=== PATIENT | male | born 1975 | race Caucasian/White ===

== ENCOUNTER 2019-11-18 20:43 | Emergency (ER) | payer SELFPAY ==
[2019-11-18] VITALS (9 sets, daily range): BP systolic 119–187; BP diastolic 57–95; PULSE 64–89; RESP 18–25; TEMP 36.5; O2SAT 98–100; BMI 29.7
--- NOTE | 2019-11-18 00:10 | DI.CT.S_ITS ---
PROCEDURE: CT ANGIO CHEST PE PROTOCOL INDICATIONS: severe chest pain TECHNIQUE: After the administration of intravenous contrast, 2 mm thick sections acquired from the pulmonary apices to the posterior costophrenic angles. 3-dimensional maximum intensity projection (MIP) coronal and sagittal reformats were then acquired through the thorax. For radiation dose reduction, the following was used: automated exposure control, adjustment of mA and/or kV according to patient size. COMPARISON: [facility], , XR CHEST 1V, 11/18/2019, 21:14. FINDINGS: Image quality: Excellent. Pulmonary arteries: The bolus of the contrast injection is suboptimal. The main pulmonary artery measures approximately 90 Hounsfield units. Pulmonary artery densities are greater than 250 Hounsfield units are considered to be ideal for evaluation of pulmonary embolism. However, no large or central pulmonary emboli are seen on these images. No pulmonary emboli are seen more distally, although sensitivity for detection of such is limited on this study. Lungs and pleura: There is mild dependent atelectasis. No pleural effusions or pneumothorax. Central and peripheral airways are patent. Mediastinum: Heart size is normal, without pericardial effusion. No mediastinal or hilar adenopathy. Thoracic aorta is normal in caliber and enhancement. No findings of dissection can be seen. Esophagus is normal in caliber, without hiatal hernia. Distal esophageal wall thickening is seen. Bones and chest wall: No suspicious bony lesions. Ribs and thoracic spine appear intact throughout. Thyroid gland demonstrates no significant CT abnormality. No axillary or supraclavicular adenopathy. Abdomen: Diffuse fatty liver infiltration is noted. The visualized portions of the upper abdominal structures are otherwise unremarkable for imaging technique. IMPRESSION: No large or central pulmonary embolism can be seen. Evaluation of the smaller pulmonary arteries is limited by bolus timing. Negative for dissection or aneurysm. Distal esophageal wall thickening is seen. Differential diagnosis includes esophagitis. Incidental note is made of: Fatty liver infiltration Note: No significant discrepancy from the preliminary report. Dictated by: Suleman Harris M.D. on 11/19/2019 at 8:52 Approved by: Suleman Harris M.D. on 11/19/2019 at 8:55
--- NOTE | 2019-11-18 20:53 | DI.RAD.S_ITS ---
PROCEDURE: XR CHEST 1V INDICATIONS: chest pain TECHNIQUE: One view of the chest was acquired. COMPARISON: None. FINDINGS: Surgical changes and devices: None. Lungs and pleura: Submaximal inspiration. Question right infrahilar infiltrate versus atelectasis. No pleural effusions or pneumothorax. Mediastinum: Mediastinal contours appear normal. Heart size is normal. Bones and chest wall: No suspicious bony lesions. Overlying soft tissues appear unremarkable. IMPRESSION: Submaximal inspiration. Questionable right infrahilar infiltrate versus atelectasis. Dictated by: Mark Hensley M.D. on 11/18/2019 at 21:27 Approved by: Mark Hensley M.D. on 11/18/2019 at 21:28
--- NOTE | 2019-11-18 20:58 | ED_ITS ---
HPI - Chest Pain General Chief Complaint: Chest Pain Stated Complaint: Chest Pain Time Seen by Provider: 11/18/19 20:45 Source: patient Mode of arrival: Ambulatory Limitations: no limitations History of Present Illness HPI narrative: 44-year-old male daily smoker with coronary artery disease and known LAD lesion presents with a chief complaint of sudden onset left-sided chest pain with radiation to his left shoulder and jaw about 1 hour ago. He does take a baby aspirin daily but has no access to nitro. He states exertion makes his pain worse he admits to nausea, diaphoresis and some shortness of breath. He denies any recent injury or travel. His last stress test was 2 years ago followed by heart catheterization. He is followed by cardiology in [place] at [facility]. complaint: chest pain Onset (ago): hour(s) Duration: constant Onset: during rest Pain location: left chest Severity: severe Quality: tightness and aching Pain radiation: LUE, neck and jaw/teeth Relieving factors: nothing Exacerbating factors: exertion Associated symptoms: nausea, diaphoresis and dyspnea Related Data Allergies Allergy/AdvReac Type Severity Reaction Status Date / Time gabapentin Allergy ITCHING Verified 11/18/19 21:04 prochlorperazine Allergy Anaphylaxis Verified 11/18/19 21:04 [From Compazine] metoclopramide [From Reglan] AdvReac Vomiting Verified 11/18/19 21:04 Review of Systems Constitutional Constitutional: Denies chills, Denies fatigue, Denies fever(s), Denies frequent falls, Denies lethargy and Denies weakness Eyes Eyes: Denies change in vision, Denies eye discharge, Denies irritation and Denies loss of vision ENT Ears, Nose, Mouth, and Throat: Denies change in voice, Denies dizziness, Denies neck pain, Denies sore throat and Denies throat swelling Cardiovascular Cardiovascular: Reports chest pain, Reports chest pain at rest, Reports chest pain with activity, Reports diaphoresis, Denies irregular heart rhythm, Denies lightheadedness, Denies palpitations, Reports dyspnea, Denies dyspnea on exertion and Denies orthopnea Respiratory Respiratory: Denies cough, Reports dyspnea, Denies dyspnea on exertion and Denies wheezing Gastrointestinal Gastrointestinal: Denies abdominal pain, Denies change in bowel habits, Denies diarrhea, Reports nausea and Denies vomiting Genitourinary Genitourinary: Denies hematuria, Denies flank pain, Denies urinary incontinence and Denies urinary urgency Musculoskeletal Musculoskeletal: Denies back pain, Denies muscle weakness, Denies neck pain, Denies numbness and Denies tingling Integumentary/Breasts Skin/Breast: Denies pruritus, Denies erythema, Denies rash and Denies wounds Neurologic Neurologic: Denies behavioral changes, Denies confusion, Denies dizziness, Denies frequent falls, Denies loss of vision, Denies numbness, Denies tingling and Denies weakness Psychiatric Psychiatric: Denies anxiety, Denies behavioral changes, Denies confusion, Denies depression, Denies homicidal ideation and Denies suicidal ideation Endocrine Endocrine: Denies fatigue, Denies flushing and Denies palpitations Hematologic/Lymphatic Hematologic/Lymphatic: Denies easy bruising Allergic/Immunologic Allergic/Immunologic: Denies urticaria, Denies throat swelling and Denies whe ezing Patient History Social History Smoking Status: Current every day smoker Smoking Status: Current every day smoker alcohol intake frequency: 0-2 drinks per day Substance Use Type: does not use Exam Narrative Exam Narrative: GENERAL: [44] year old patient appears stated age. Well-nourish ed, well-developed patient, in mild distress. HEAD: Atraumatic. Normocephalic. EYES: Pupils equal round and reactive. Extraocular motions intact. No scleral icterus. No injection or drainage. ENT: Nose without bleeding, purulent drainage. Throat without erythema, tonsillar hypertrophy or exudate. Airway patent. NECK: Trachea midline. Non tender CARDIOVASCULAR: Regular rate and rhythm without murmurs, gallops, or rubs. RESPIRATORY: Clear to auscultation. Breath sounds equal bilaterally. No wheezes, rales, or rhonchi. GASTROINTESTINAL: Abdomen soft, non-tender, nondistended. EXTREMITIES: No edema or joint tenderness. BACK: Nontender without deformity or crepitance. No flank tenderness. NEURO: AOx3. SKIN: No rash or erythema of visible areas Initial Vital Signs Initial Vital Signs: Vital Signs Temperature 97.7 F 11/18/19 20:49 Pulse Rate 89 11/18/19 20:49 Respiratory Rate 22 11/18/19 20:49 Blood Pressure 187/95 H 11/18/19 20:49 Pulse Oximetry 100 11/18/19 20:49 Course Orders Ordered: ED Orders 11/18/19 20:53 XR chest 1V Stat EKG-12 Lead Stat 11/18/19 20:55 Complete Blood Count AUTO DIFF Stat Comprehensive Metabolic Panel Stat D Dimer Stat Lipase Stat Partial Thromboplastin Time Stat Prothrombin Time INR Stat Troponin & CK Cardiac Panel Stat 11/18/19 22:13 EKG-12 Lead Stat 11/18/19 22:45 Troponin I Stat 11/18/19 23:10 EKG-12 Lead Stat 11/19/19 01:51 Partial Thromboplastin Time Stat 11/19/19 02:00 PTT [Partial Thromboplastin Time] Q6H 11/19/19 02:10 Troponin I Stat 11/19/19 05:00 Hemoglobin and Hematocrit DAILY 11/19/19 08:00 PTT [Partial Thromboplastin Time] Q6H 11/19/19 14:00 PTT [Partial Thromboplastin Time] Q6H 11/19/19 20:00 PTT [Partial Thromboplastin Time] Q6H 11/20/19 05:00 Hemoglobin and Hematocrit DAILY Heparin Sodium/Dextrose (Heparin Drip) 25,000 unit in 500 mls @ 25.256 mls/hr IV CONT SJ; Protocol Last Admin: 11/19/19 02:08 Dose: 12 units/kg/hr, 25.256 mls/hr Documented by: GERALDO Nitroglycerin (Nitroglycerin) 50 mg in 250 mls @ 1.5 mls/hr IV TITRATE SJ; Protocol Last Titration: 11/19/19 03:20 Dose: 15 mcg/min, 4.5 mls/hr Documented by: Titration: 11/19/19 02:40 Dose: 10 mcg/min, 3 mls/hr Documented by: Admin: 11/19/19 02:25 Dose: 5 mcg/min, 1.5 mls/hr Documented by: GERALDO Discontinued Medications Acetaminophen (Tylenol) 975 mg PO NOW ONE Stop: 11/19/19 03:45 Last Admin: 11/19/19 03:53 Dose: 975 mg Documented by: BRIAN Aspirin (Aspirin Chew) 324 mg PO NOW ONE Stop: 11/18/19 20:58 Last Admin: 11/18/19 21:12 Dose: 324 mg Documented by: GERALDO Heparin Sodium (Porcine) (Heparin) 5,000 unit IV NOW ONE Stop: 11/19/19 01:51 Last Admin: 11/19/19 02:09 Dose: 5,000 unit Documented by: GERALDO Metoprolol Tartrate (Lopressor) 5 mg IV NOW ONE Stop: 11/18/19 23:08 Last Admin: 11/18/19 23:12 Dose: 5 mg Documented by: RAMYA Morphine Sulfate (Morphine) 4 mg IV NOW ONE Stop: 11/18/19 21:30 Last Admin: 11/18/19 21:39 Dose: 4 mg Documented by: GERALDO Morphine Sulfate (Morphine) 4 mg IV NOW ONE Stop: 11/18/19 23:51 Last Admin: 11/19/19 00:08 Dose: 4 mg Documented by: RAMYA Morphine Sulfate (Morphine) 4 mg IV NOW ONE Stop: 11/19/19 01:51 Last Admin: 11/19/19 02:09 Dose: 4 mg Documented by: GERALDO Nitroglycerin (Nitrostat) 0.4 mg SL [id number] PRN PRN Reason: Chest Pain Last Admin: 11/18/19 21:26 Dose: 0.4 mg Documented by: Admin: 11/18/19 21:21 Dose: 0.4 mg Documented by: Admin: 11/18/19 21:13 Dose: 0.4 mg Documented by: GERALDO Nitroglycerin (Nitrostat) 0.4 mg SL NOW ONE Stop: 11/18/19 23:09 Last Admin: 11/18/19 23:12 Dose: 0.4 mg Documented by: RAMYA Ondansetron HCl (Zofran) 4 mg IV NOW ONE Stop: 11/18/19 21:17 Last Admin: 11/18/19 21:18 Dose: 4 mg Documented by: GERALDO Ondansetron HCl (Zofran) 4 mg IV NOW ONE Stop: 11/18/19 23:51 Last Admin: 11/19/19 00:08 Dose: 4 mg Documented by: RAMYA Ondansetron HCl (Zofran) 4 mg IV NOW ONE Stop: 11/19/19 02:22 Last Admin: 11/19/19 02:40 Dose: 4 mg Documented by: GERALDO Vital Signs Vital signs: Vital Signs - 8 hr 11/18/19 20:49 11/18/19 21:13 11/18/19 21:20 Temperature 97.7 F Pulse Rate 89 85 86 Respiratory Rate 22 25 H Blood Pressure 187/95 H 167/91 H Blood Pressure [Left Arm] 159/76 H Pulse Oximetry 100 98 11/18/19 21:24 11/18/19 21:26 11/18/19 21:28 Temperature Pulse Rate 83 83 83 Respiratory Rate 24 24 Blood Pressure 133/80 Blood Pressure [Left Arm] 133/80 131/75 Pulse Oximetry 99 99 11/18/19 21:43 11/18/19 23:12 11/18/19 23:30 Temperature Pulse Rate 80 71 64 Respiratory Rate 18 Blood Pressure 141/71 H Blood Pressure [Left Arm] 133/72 119/57 L Pulse Oximetry 99 11/19/19 01:09 11/19/19 02:07 11/19/19 02:25 Temperature Pulse Rate 53 L 59 L 64 Respiratory Rate 16 21 Blood Pressure 131/82 Blood Pressure [Left Arm] 131/82 131/82 Pulse Oximetry 97 96 11/19/19 02:45 Temperature Pulse Rate 53 L Respiratory Rate 14 Blood Pressure Blood Pressure [Left Arm] 131/82 Pulse Oximetry 98 MDM - Chest Pain Lab Data Result diagrams: 11/18/19 20:55 11/18/19 20:55 Labs: Lab Results 11/18/19 11/18/19 11/18/19 Range/Units 20:55 20:55 20:55 WBC 7.9 (4.5-11.0) X10^3/uL RBC 5.23 (4.5-5.9) X10^6/uL Hgb 16.0 (13.5-17.5) g/dL Hct 45.9 (41-53) % MCV 87.8 (80-100) fL MCH 30.6 (26-34) PG MCHC 34.9 (30-36) % RDW 12.6 (11.6-14.8) % Plt Count 224 (150-400) X10^3/uL Neut % (Auto) 44.4 L (50-75) % Lymph % (Auto) 46.0 H (25-40) % [place] % (Auto) 6.9 (3-14) % Eos % (Auto) 1.8 L (2-4) % Baso % (Auto) 0.9 (0-2) % Neut # (Auto) 3500 (5083-0160) /uL Lymph # (Auto) 3600 (7833-8453) /uL [place] # (Auto) 500 (0-900) /uL Eos # (Auto) 100 (0-450) /uL Baso # (Auto) 100 (0-100) /uL PT 10.7 (10.1-12.7) SECONDS INR 0.9 (0.9-1.3) APTT 32 (26.4-36.2) SECONDS D-Dimer (<230) ng/mL Sodium 142 (137-145) mmol/L Potassium 3.8 (3.4-5.1) mmol/L Chloride 106 (98-107) mmol/L Carbon Dioxide 25 (22-32) mmol/L BUN 14 (9-20) mg/dL Creatinine 0.90 (0.66-1.25) mg/dL Estimated GFR > 60.0 (>60) mL/min BUN/Creatinine Ratio 15.6 (6-22) Glucose 93 (70-100) mg/dL Calcium 9.9 (8.4-10.2) mg/dL Total Bilirubin 0.4 (0.2-1.3) mg/dL AST 33 (17-59) IU/L ALT 42 (<50) IU/L Alkaline Phosphatase 57 (38-126) U/L Total Creatine Kinase 304 H (55-170) U/L CK-MB (CK-2) 1.96 (<2.37) ng/mL CK-MB (CK-2) Rel Index 0.6 L (1.5-5.0) % Troponin I < 0.012 (0.01-0.034) ng/mL Total Protein 8.0 (6.3-8.2) g/dL Albumin 4.8 (3.5-5.0) g/dL Globulin 3.2 (1.7-4.1) g/dL Albumin/Globulin Ratio 1.5 (1.0-2.8) Lipase 84 (23-300) U/L 11/18/19 11/18/19 11/19/19 Range/Units 20:55 22:45 02:10 WBC (4.5-11.0) X10^3/uL RBC (4.5-5.9) X10^6/uL Hgb (13.5-17.5) g/dL Hct (41-53) % MCV (80-100) fL MCH (26-34) PG MCHC (30-36) % RDW (11.6-14.8) % Plt Count (150-400) X10^3/uL Neut % (Auto) (50-75) % Lymph % (Auto) (25-40) % [place] % (Auto) (3-14) % Eos % (Auto) (2-4) % Baso % (Auto) (0-2) % Neut # (Auto) (6149-9637) /uL Lymph # (Auto) (2149-9934) /uL [place] # (Auto) (0-900) /uL Eos # (Auto) (0-450) /uL Baso # (Auto) (0-100) /uL PT (10.1-12.7) SECONDS INR (0.9-1.3) APTT (26.4-36.2) SECONDS D-Dimer < 200 (<230) ng/mL Sodium (137-145) mmol/L Potassium (3.4-5.1) mmol/L Chloride (98-107) mmol/L Carbon Dioxide (22-32) mmol/L BUN (9-20) mg/dL Creatinine (0.66-1.25) mg/dL Estimated GFR (>60) mL/min BUN/Creatinine Ratio (6-22) Glucose (70-100) mg/dL Calcium (8.4-10.2) mg/dL Total Bilirubin (0.2-1.3) mg/dL AST (17-59) IU/L ALT (<50) IU/L Alkaline Phosphatase (38-126) U/L Total Creatine Kinase (55-170) U/L CK-MB (CK-2) (<2.37) ng/mL CK-MB (CK-2) Rel Index (1.5-5.0) % Troponin I < 0.012 < 0.012 (0.01-0.034) ng/mL Total Protein (6.3-8.2) g/dL Albumin (3.5-5.0) g/dL Globulin (1.7-4.1) g/dL Albumin/Globulin Ratio (1.0-2.8) Lipase (23-300) U/L Imaging Data CT scan - chest: Radiologist's Impression: No PE or other abnormal findings ECG Data Attestation: I personally reviewed and interpreted this ECG as follows: Interpretation: EKG #1: NSR, no ST segmental elevation or depression. No ectopy or hyperacute T waves EKG 2, 3, 4: Unchanged MDM Narrative Medical decision making narrative: 44-year-old male with known coronary artery disease presents with a concerning story of pain which started at rest, is provoked by exertion, radiates and associated with nausea and diaphoresis. Multiple EKGs are nonischemic and troponins are unremarkable. Pain persist despite use of nitro, morphine, aspirin and beta-blockers also administered. We are still waiting on records from outside facility but I have discussed the case with Cardiology and Interventional Cardiology to whom sure the opinion that give n patient's history and concerning story he is most appropriately transferred to a center with in-house Cardiology and access to a senior cytogenetics laboratory director. Critical Care Time Critical Care Time Critical Care Time: Yes Total Critical Care Time: 45 Attestation: The high probability of a clinically significant, sudden or life threatening deterioration of the [CV] system(s) required my full and direct attention, intervention and personal management. The aggregate critical care time was [45] minutes. This time is in addition to time spent performing reported procedures but includes the following: [x] Data Review and interpretation [x] Patient assessment and monitoring of vital signs [x] Documentation x[] Medication orders and management Discharge Plan Departure Patient Disposition: [facility] Clinical Impression: Unstable angina pectoris
[2019-11-18 21:09] LABS: Add Manual Diff / Slide Review NO; Basophils Absolute Auto 100 /uL (0-100); Basophils Percent Auto 0.9 % (0-2); Eosinophils Absolute Auto 100 /uL (0-450); Eosinophils Percent Auto 1.8 % (2-4); Hematocrit 45.9 % (41-53); Lymphocytes Absolute Auto 3600 /uL (1100-4500); Mean Corpuscular HGB Conc 34.9 % (30-36); Mean Corpuscular Hemoglobin 30.6 PG (26-34); Mean Corpuscular Volume 87.8 fL (80-100); Monocytes Absolute Auto 500 /uL (0-900); Monocytes Percent Auto 6.9 % (3-14); Neutrophils Absolute Auto 3500 /uL (1500-7000); Neutrophils Percent Auto 44.4 % (50-75); Platelet Count 224 X10^3/uL (150-400); Red Blood Cell Count 5.23 X10^6/uL (4.5-5.9); Red Cell Distribution Width 12.6 % (11.6-14.8); White Blood Cell Count 7.9 X10^3/uL (4.5-11.0)
[2019-11-18] MEDS: ASPIRIN 81 MG CHEW TAB 324 MG PO (21:12)
[2019-11-18] MEDS: NITROGLYCERIN 0.4 MG SL TAB SL ×4 (21:13→23:12)
[2019-11-18] MEDS: ONDANSETRON 4 MG/2 ML INJ IV (21:18)
[2019-11-18 21:20] LABS: Alanine Aminotransferase 42 IU/L (<50); Albumin 4.8 g/dL (3.5-5.0); Albumin Globulin Ratio 1.5 (1.0-2.8); Alkaline Phosphatase 57 U/L (38-126); Aspartate Aminotransferase 33 IU/L (17-59); BUN Creatinine Ratio 15.6 (6-22); Bilirubin Total 0.4 mg/dL (0.2-1.3); Blood Urea Nitrogen 14 mg/dL (9-20); Calcium 9.9 mg/dL (8.4-10.2); Carbon Dioxide 25 mmol/L (22-32); Chloride 106 mmol/L (98-107); Creatine Kinase 304 U/L (55-170); Estimated Glomerular Filt Rate > 60.0 mL/min (>60); Globulin 3.2 g/dL (1.7-4.1); Glucose 93 mg/dL (70-100); HEMOLYSIS < 15 (0-50); Lipase 84 U/L (23-300); Potassium 3.8 mmol/L (3.4-5.1); Sodium 142 mmol/L (137-145)
[2019-11-18 21:31] LABS: Troponin I < 0.012 ng/mL (0.01-0.034)
--- NOTE | 2019-11-18 21:31 | PC.NURSE ---
Pt rates pain 7/10 after 3 doses SL nitro. Reports nausea is better after zofran. Dr Sims notified of above, 2nd EKG now being done. Orders received for Morphine, will monitor closely.
[2019-11-18 21:35] LABS: CKMB % Relative Index 0.6 % (1.5-5.0); Creatine Kinase MB 1.96 ng/mL (<2.37)
[2019-11-18] MEDS: MORPHINE 4 MG/ML INJ IV (21:39)
[2019-11-18 22:17] LABS: D Dimer < 200 ng/mL (<230)
[2019-11-18 22:22] LABS: INR 0.9 (0.9-1.3); Prothrombin Time 10.7 SECONDS (10.1-12.7)
[2019-11-18 22:25] LABS: PTT Partial Thromboplastin Tim 32 SECONDS (26.4-36.2)
--- NOTE | 2019-11-18 23:05 | PC.NURSE ---
answered call light to room. patient report increasing pain and nausea in left chest. RT called for repeat EKG, Provider notified.
[2019-11-18 23:12] LABS: Troponin I < 0.012 ng/mL (0.01-0.034)
[2019-11-18] MEDS: METOPROLOL TARTRATE 5 MG/5 ML INJ IV (23:12)
[2019-11-19] MEDS: MORPHINE 4 MG/ML INJ IV ×2 (00:08→02:09)
[2019-11-19] MEDS: ONDANSETRON 4 MG/2 ML INJ IV ×2 (00:08→02:40)
[2019-11-19 01:09] VITALS: BP 131/82; PULSE 53; RESP 16; O2SAT 97
[2019-11-19 02:07] VITALS: BP 131/82; PULSE 59; RESP 21; O2SAT 96
[2019-11-19] MEDS: HEPARIN DRIP 25,000 UNIT/500 ML IV.SOLN 25.256 UNIT IV (02:08)
[2019-11-19] MEDS: HEPARIN 5,000 UNIT/ML VIAL 5000 UNIT IV (02:09)
[2019-11-19 02:25] VITALS: BP 131/82; PULSE 64
[2019-11-19] MEDS: NITROGLYCERIN 50 MG/250 ML INFUS..BTL IV (02:25)
[2019-11-19 02:43] LABS: Troponin I < 0.012 ng/mL (0.01-0.034)
[2019-11-19 02:45] VITALS: BP 131/82; PULSE 53; RESP 14; O2SAT 98
[2019-11-19] MEDS: ACETAMINOPHEN 325 MG TABLET 975 MG PO (03:53)
[2019-11-19 05:02] VITALS: BP 96/56; PULSE 74; RESP 16; O2SAT 97
[2019-11-19] MEDS: KETOROLAC 60 MG/2 ML VIAL 15 MG IV (05:10)
--- NOTE | 2019-11-19 05:31 | PC.NURSE ---
Attempted to call report to [facility], I was told that Nurse Abu is not available and will call me back.
== END 2019-11-19 05:30 | disposition short-term general hospital (02) ==
PROVIDERS: Emergency Provider Emergency Medicine
DX: I25.110 Atherosclerotic heart disease of native coronary artery with unstable angina pectoris (principal)
CPT/HCPCS: 36415; 71045; 71275; 80053; 82550; 82553; 83690; 84484; 85025; 85379; 85610; 85730; 93005; 96365; 96366; 96368; 96375; 96376; 99285; 99291; 99292; J1644; J1885; J2270; J2405; Q9967

== ENCOUNTER 2019-11-23 02:44 | Emergency (ER) | payer SELFPAY ==
[2019-11-23 02:52] VITALS: BP 179/95; PULSE 90; RESP 20; TEMP 36.8; O2SAT 100
--- NOTE | 2019-11-23 03:01 | ED_ITS ---
HPI - General Adult General Chief complaint: Abdominal Pain Stated complaint: angioplasty wednesday/blood clot right leg Time Seen by Provider: 11/23/19 02:47 Source: patient Mode of arrival: Ambulatory Limitations: no limitations History of Present Illness HPI narrative: 44-year-old male. Known history of coronary artery disease. Was seen here in the emergency department 4 days ago. Was transferred to [facility] for concern for unstable angina. Patient states that he did receive a angioplasty. They did access his right groin. No stents were placed. He states the rest of that day and the next day he was relatively unremarkable and pain free. The day after that started having pain in the right groin which is worsened. No urinary symptoms. No fevers. Has a difficult time walking because of a. Related Data Allergies Allergy/AdvReac Type Severity Reaction Status Date / Time gabapentin Allergy ITCHING Verified 11/18/19 21:04 Iodinated Contrast Media Allergy Verified 11/23/19 03:55 prochlorperazine Allergy Anaphylaxis Verified 11/18/19 21:04 [From Compazine] metoclopramide [From Reglan] AdvReac Vomiting Verified 11/18/19 21:04 Review of Systems Constitutional Constitutional: Denies fever(s) Cardiovascular Cardiovascular: Denies chest pain Gastrointestinal Gastrointestinal: Denies abdominal pain, Denies nausea and Denies vomiting Genitourinary Genitourinary: Denies dysuria Comments: Right groin pain Musculoskeletal Musculoskeletal: Denies myalgias and Denies arthralgias Integumentary/Breasts Skin/Breast: Denies rash Comments: Bruising the right groin area Hematologic/Lymphatic Hematologic/Lymphatic: Denies easy bleeding and Denies easy bruising Patient History Medical History Coronary artery disease (Acute) Social History Smoking Status: Current every day smoker Smoking Status: Current every day smoker alcohol intake frequency: 0-2 drinks per day Substance Use Type: does not use Exam Initial Vital Signs Initial Vital Signs: Vital Signs Temperature 98.3 F 11/23/19 02:52 Pulse Rate 90 11/23/19 02:52 Respiratory Rate 20 11/23/19 02:52 Blood Pressure 179/95 H 11/23/19 02:52 Pulse Oximetry 100 11/23/19 02:52 Const General: cooperative, comfortable and well developed Limitations: mental status not altered Resp Effort & Inspection: normal respiratory effort Skin Other: Bruising around the right groin area consistent with a stated history of femoral artery access for his angioplasty. Neuro General: alert, awake and oriented x3 Extrem Other: Patient with significant tenderness around the right groin and also tenderness on the anterior thigh with some swelling in the area. Course Orders Ordered: ED Orders 11/23/19 02:50 Basic Metabolic Panel Stat Complete Blood Count AUTO DIFF Stat Partial Thromboplastin Time Stat Prothrombin Time INR Stat 11/23/19 03:02 perip venous low extrem rt Stat 11/23/19 03:39 CT angio abd aorta runoff Stat Discontinued Medications Diphenhydramine HCl (Benadryl) 25 mg IV NOW ONE Stop: 11/23/19 03:56 Last Admin: 11/23/19 04:00 Dose: 25 mg Documented by: FRACISCO Methylprednisolone (Solu-Medrol 125 Mg Vial) 40 mg IV NOW ONE Stop: 11/23/19 03:57 Last Admin: 11/23/19 03:59 Dose: 40 mg Documented by: FRACISCO Morphine Sulfate (Morphine) 4 mg IV NOW ONE Stop: 11/23/19 03:03 Last Admin: 11/23/19 03:09 Dose: 4 mg Documented by: FRACISCO Ondansetron HCl (Zofran) 4 mg IV NOW ONE Stop: 11/23/19 03:03 Last Admin: 11/23/19 03:09 Dose: 4 mg Documented by: FRACISCO Vital Signs Vital signs: Vital Signs - 8 hr 11/23/19 02:52 Temperature 98.3 F Pulse Rate [Left] 90 Respiratory Rate 20 Blood Pressure [Left Arm] 179/95 H Pulse Oximetry 100 Medical Decision Making Lab Data Lab results reviewed: Yes I reviewed the patient's lab results. Result diagrams: 11/23/19 02:50 11/23/19 02:50 Labs: Lab Results 11/23/19 11/23/19 11/23/19 Range/Units 02:50 02:50 02:50 WBC 7.4 (4.5-11.0) X10^3/uL RBC 5.22 (4.5-5.9) X10^6/uL Hgb 16.0 (13.5-17.5) g/dL Hct 46.0 (41-53) % MCV 88.2 (80-100) fL MCH 30.6 (26-34) PG MCHC 34.6 (30-36) % RDW 12.7 (11.6-14.8) % Plt Count 221 (150-400) X10^3/uL Neut % (Auto) 49.0 L (50-75) % Lymph % (Auto) 38.8 (25-40) % [place] % (Auto) 8.7 (3-14) % Eos % (Auto) 2.8 (2-4) % Baso % (Auto) 0.7 (0-2) % Neut # (Auto) 3600 (8824-2755) /uL Lymph # (Auto) 2900 (2629-9972) /uL [place] # (Auto) 600 (0-900) /uL Eos # (Auto) 200 (0-450) /uL Baso # (Auto) 100 (0-100) /uL PT 9.2 L (10.1-12.7) SECONDS INR 0.8 L (0.9-1.3) APTT 31 (26.4-36.2) SECONDS Sodium 144 (137-145) mmol/L Potassium 3.7 (3.4-5.1) mmol/L Chloride 107 (98-107) mmol/L Carbon Dioxide 30 (22-32) mmol/L BUN 15 (9-20) mg/dL Creatinine 0.90 (0.66-1.25) mg/dL Estimated GFR > 60.0 (>60) mL/min BUN/Creatinine Ratio 16.7 (6-22) Glucose 89 (70-100) mg/dL Calcium 9.5 (8.4-10.2) mg/dL Imaging Data US - DVT: Radiologist's Impression: No DVT CT angio lower extremity: Radiologist's Impression: Mild subcutaneous stranding right groin compatible with minimal hemorrhage secondary to history of recent vascular instrumentation. Minimal extravasation of IV contrast anteriorly compatible with hemorrhage. No large hematoma. No pseudoaneurysm, significant stenosis, or occlusion MDM Narrative Medical decision making narrative: Patient does have a JODIE report stating that there was recommendation that no narcotic prescriptions given upon discharge from the ED and also restrict the use of opioids in the ED. patient's skin looks well. Looks appropriate. No signs of infection. He does have significant tenderness in this area and some swelling in the area. There was some concern about a subcutaneous hematoma. He was also concerned about a blood clot. A right lower quadrant DVT ultrasound was negative. His CTA shows what expected to be seen after his stated history. There is no other hematoma noted. I do suspect that this is muscular pain. He asked multiple times for pain medication. I did discuss the CT and ultrasound results with him. He was given return precautions and follow-up instructions. He did ambulate out of the emergency department without problems. He expressed understanding and agreement plan. Discharge Plan Departure Patient Disposition: Home Clinical Impression: Right groin pain Activity Restrictions/Additional Instructions: Recommend that you continue to follow all of your postprocedure instructions given to you by the insight leader. You can place ice over the area. Recommend you contact her primary provider. Return to the emergency department for any new or worsening symptoms
--- NOTE | 2019-11-23 03:02 | DI.US.S_ITS ---
PROCEDURE: US PERIPH VENOUS LOW EXTREM RT INDICATIONS: PAIN TECHNIQUE: Real-time imaging, as well as color and pulse Doppler interrogation, were performed of the lower extremity deep veins from the inguinal ligament to the popliteal fossa. COMPARISON: None. FINDINGS: The common femoral, femoral and popliteal veins are normally compressible, and free of intraluminal thrombus. Color and pulse Doppler demonstrate normal phasic intraluminal flow. There is normal augmentation response to distal compression maneuver. IMPRESSION: No evidence of deep vein thrombosis involving the right lower extremity. Dictated by: Rachna Block MD, PhD on 11/23/2019 at 8:36 Approved by: Rachna Block MD, PhD on 11/23/2019 at 8:36
[2019-11-23] MEDS: MORPHINE 4 MG/ML INJ IV (03:09)
[2019-11-23] MEDS: ONDANSETRON 4 MG/2 ML INJ IV (03:09)
[2019-11-23 03:15] LABS: Add Manual Diff / Slide Review NO; Basophils Absolute Auto 100 /uL (0-100); Basophils Percent Auto 0.7 % (0-2); Eosinophils Absolute Auto 200 /uL (0-450); Eosinophils Percent Auto 2.8 % (2-4); Lymphocytes Absolute Auto 2900 /uL (1100-4500); Lymphocytes Percent Auto 38.8 % (25-40); Mean Corpuscular HGB Conc 34.6 % (30-36); Mean Corpuscular Hemoglobin 30.6 PG (26-34); Mean Corpuscular Volume 88.2 fL (80-100); Monocytes Absolute Auto 600 /uL (0-900); Monocytes Percent Auto 8.7 % (3-14); Neutrophils Absolute Auto 3600 /uL (1500-7000); Platelet Count 221 X10^3/uL (150-400); Red Blood Cell Count 5.22 X10^6/uL (4.5-5.9); Red Cell Distribution Width 12.7 % (11.6-14.8); White Blood Cell Count 7.4 X10^3/uL (4.5-11.0)
[2019-11-23 03:21] LABS: BUN Creatinine Ratio 16.7 (6-22); Blood Urea Nitrogen 15 mg/dL (9-20); Calcium 9.5 mg/dL (8.4-10.2); Carbon Dioxide 30 mmol/L (22-32); Chloride 107 mmol/L (98-107); Estimated Glomerular Filt Rate > 60.0 mL/min (>60); Glucose 89 mg/dL (70-100); HEMOLYSIS 48 (0-50); Potassium 3.7 mmol/L (3.4-5.1); Sodium 144 mmol/L (137-145)
[2019-11-23 03:27] LABS: INR 0.8 (0.9-1.3); Prothrombin Time 9.2 SECONDS (10.1-12.7)
[2019-11-23 03:29] LABS: PTT Partial Thromboplastin Tim 31 SECONDS (26.4-36.2)
--- NOTE | 2019-11-23 03:39 | DI.CT.S_ITS ---
PROCEDURE: CT ANGIO ABD AORTA RUNOFF INDICATIONS: pain, eval for right femoral artery injury after angio procedure TECHNIQUE: After the administration of intravenous contrast, 2.5 mm sections acquired from pelvis to the feet, with optional delayed image acquisition from the knees to the feet. 3-dimensional maximum intensity projection (MIP) coronal and sagittal reformats, and/or 3-dimensional volume rendering reformatting was then performed. For radiation dose reduction, the following was used: automated exposure control. COMPARISON: None. FINDINGS: Image quality: Excellent. Extravascular tissues: Non opacified bowel loops demonstrate normal wall thickness and enhancement. No free fluid or air. No retroperitoneal or mesenteric adenopathy. No ventral hernias. Bladder wall thickness is normal. No inguinal hernias or adenopathy. No suspicious bony lesions. No vertebral body compression fractures. Abdominal aorta: Normal in caliber. Right lower extremity: No embolus seen. Note is made of mild stranding in the subcutaneous and deeper fat ventral to the right common femoral artery, site of apparent arterial catheterization previously. There is a 2 x 2 mm focus of extraluminal contrast immediately adjacent to the anterior border of this artery, consistent with a very small pseudoaneurysm without adjacent hematoma related to the site of arterial access. Left lower extremity: Normal. IMPRESSION: No hematoma found. Mild stranding in the fatty soft tissues at the end ventral to the right common femoral artery, the site of arterial catheterization reportedly. Note is made of a 2 x 2 mm ventral pseudoaneurysm in apposition to the anterior border of the right common femoral artery, of a size that generally would resolve spontaneously. This area could be further assessed on followup targeted ultrasound if clinically warranted to confirm resolution. Dictated by: David Dc M.D. on 11/23/2019 at 8:09 Approved by: David Dc M.D. on 11/23/2019 at 8:26
[2019-11-23] MEDS: methylPREDNISolone 125 MG/2 ML VIAL 40 MG IV (03:59)
[2019-11-23 04:00] VITALS: BP 171/92; PULSE 88; RESP 19; O2SAT 100
[2019-11-23] MEDS: diphenhydrAMINE 50 MG/ML VIAL 25 MG IV (04:00)
[2019-11-23 05:00] VITALS: BP 167/89; PULSE 87; RESP 20; O2SAT 100
== END 2019-11-23 05:45 | disposition home or self-care (01) ==
PROVIDERS: Emergency Provider Emergency Medicine
DX: R10.31 Right lower quadrant pain (principal)
CPT/HCPCS: 36415; 75635; 80048; 85025; 85610; 85730; 93971; 96374; 96375; 99284; J1200; J2270; J2405; J2930; Q9967

== ENCOUNTER 2019-12-05 22:08 | Emergency (ER) | payer SELFPAY ==
--- NOTE | 2019-12-05 22:22 | DI.CT.S_ITS ---
PROCEDURE: CT HEAD/BRAIN WO CON INDICATIONS: Status epilepticus TECHNIQUE: Noncontrast 4.5 mm thick angled axial sections acquired from the foramen magnum to the vertex, with coronal and sagittal reformats. For radiation dose reduction, the following was used: automated exposure control, adjustment of mA and/or kV according to patient size. COMPARISON: None. FINDINGS: Image quality: Excellent. CSF spaces: Basal cisterns are patent. No extra-axial fluid collections. Ventricles are normal in size and shape. Brain: No midline shift. No intracranial masses or hemorrhage. Fletcher-white matter interface is normal. Skull and face: Calvarium and visualized facial bones are intact, without suspicious lesions. Sinuses: Visualized sinuses and mastoids are clear. IMPRESSION: No acute intracranial disease process. Dictated by: Rachna Block MD, PhD on 12/06/2019 at 7:14 Approved by: Rachna Block MD, PhD on 12/06/2019 at 7:15
[2019-12-05 22:25] VITALS: BP 132/72; PULSE 96; RESP 26; O2SAT 92
[2019-12-05] MEDS: levETIRAcetam 1,000 MG in SODIUM CHLORIDE 0.9% 100 ML 440 ML IV (22:30)
[2019-12-05 22:36] VITALS: BP 132/72; PULSE 98; RESP 28; TEMP 37.2; O2SAT 92
[2019-12-05 22:46] LABS: Ur Creatinine 20 (Normal); Ur Specific Gravity 1.015 (Normal); Urine pH 5 (Normal)
[2019-12-05 22:47] LABS: UR Morphine/Opiate cutoff 300 Negative (Negative); Urine Amphetamines Negative (Negative); Urine Barbiturates Negative (Negative); Urine Benzodiazepines Positive (Negative); Urine Cocaine Negative (Negative); Urine MDMA Negative (Negative); Urine Methadone Negative (Negative); Urine Methamphetamines Negative (Negative); Urine Oxycodone Negative (Negative); Urine Phencyclidine Negative (Negative); Urine Tetrahydrocannabinol Negative (Negative); Urine Tricyclic Antidepressant Negative (Negative)
[2019-12-05 22:48] LABS: Add Manual Diff / Slide Review NO; Basophils Absolute Auto 0 /uL (0-100); Basophils Percent Auto 0.5 % (0-2); Eosinophils Absolute Auto 200 /uL (0-450); Eosinophils Percent Auto 2.5 % (2-4); Hematocrit 43.4 % (41-53); Hemoglobin 15.1 g/dL (13.5-17.5); Lymphocytes Absolute Auto 3200 /uL (1100-4500); Lymphocytes Percent Auto 42.7 % (25-40); Mean Corpuscular HGB Conc 34.7 % (30-36); Mean Corpuscular Hemoglobin 30.5 PG (26-34); Mean Corpuscular Volume 87.7 fL (80-100); Monocytes Absolute Auto 600 /uL (0-900); Monocytes Percent Auto 7.8 % (3-14); Neutrophils Absolute Auto 3500 /uL (1500-7000); Neutrophils Percent Auto 46.5 % (50-75); Platelet Count 210 X10^3/uL (150-400); Red Blood Cell Count 4.95 X10^6/uL (4.5-5.9); Red Cell Distribution Width 12.6 % (11.6-14.8); White Blood Cell Count 7.6 X10^3/uL (4.5-11.0)
[2019-12-05 22:52] LABS: Appearance Urine UA CLEAR; Bilirubin Urine UA NEGATIVE (NEGATIVE); Color Urine UA YELLOW; Glucose Urine UA NEGATIVE (Negative); Ketones Urine UA NEGATIVE (NEGATIVE); Leukocyte Esterase Urine UA NEGATIVE (NEGATIVE); Nitrite Urine UA NEGATIVE (Negative); Occult Blood Urine UA TRACE-LYSED (Negative); Protein Urine UA NEGATIVE (Negative); Specific Gravity Urine UA <=1.005 (1.000-1.035); Urobilinogen Urine UA 0.2 E.U./dL (0.2); pH Urine UA 5.5 (4.5-8.0)
--- NOTE | 2019-12-05 22:54 | PC.NURSE ---
He was unable to answer questions due to his altered loc,I had to check a yes or no box on coronavirus questions but was not sure if correct.
[2019-12-05 23:08] LABS: INR 0.9 (0.9-1.3); Prothrombin Time 10.5 SECONDS (10.1-12.7)
--- NOTE | 2019-12-05 23:12 | DI.RAD.S_ITS ---
PROCEDURE: XR CHEST 1V INDICATIONS: dyspnea TECHNIQUE: One view of the chest was acquired. COMPARISON: [facility], CR, XR CHEST 1V, 11/18/2019, 21:14. FINDINGS: Surgical changes and devices: None. Lungs and pleura: Lungs are clear. No pleural effusions or pneumothorax. Mediastinum: Mediastinal contours appear normal. Heart size is normal. Bones and chest wall: No suspicious bony lesions. Overlying soft tissues appear unremarkable. IMPRESSION: No acute cardiopulmonary disease process. Dictated by: Rachna Block MD, PhD on 12/06/2019 at 8:38 Approved by: Rachna Block MD, PhD on 12/06/2019 at 8:39
[2019-12-05 23:13] LABS: Creatine Kinase 158 U/L (55-170); Magnesium 2.4 mg/dL (1.6-2.3)
[2019-12-05 23:20] LABS: Alanine Aminotransferase 35 IU/L (<50); Albumin 4.4 g/dL (3.5-5.0); Albumin Globulin Ratio 1.5 (1.0-2.8); Alkaline Phosphatase 52 U/L (38-126); Aspartate Aminotransferase 34 IU/L (17-59); BUN Creatinine Ratio 12.5 (6-22); Bilirubin Total 0.4 mg/dL (0.2-1.3); Blood Urea Nitrogen 10 mg/dL (9-20); Calcium 9.7 mg/dL (8.4-10.2); Carbon Dioxide 25 mmol/L (22-32); Chloride 108 mmol/L (98-107); Estimated Glomerular Filt Rate > 60.0 mL/min (>60); Ethanol (ETOH) 164 mg/dL; Globulin 2.9 g/dL (1.7-4.1); Glucose 77 mg/dL (70-100); HEMOLYSIS < 15 (0-50); Potassium 3.3 mmol/L (3.4-5.1); Sodium 146 mmol/L (137-145); Total Protein 7.3 g/dL (6.3-8.2)
[2019-12-05] MEDS: MIDAZOLAM 5 MG/ML VIAL (23:20)
--- NOTE | 2019-12-05 23:20 | ED.SEIZURE ---
HPI - Seizure General Chief Complaint: Seizure Stated Complaint: Seizure Time Seen by Provider: 12/05/19 22:18 Source: EMS Mode of arrival: EMS Limitations: altered mental status History of Present Illness HPI Narrative: The patient has seizure at his home, he was able to call 911 and notify EMS. Paramedics witnessed another seizure, IV Versed was given. Versed worked initially. After receiving the Versed, he suddenly awoke and notified the paramedics he has heart problems, and seizure disorder. He has a record here of 2 visits for chest pain. He was seen at [facility], cardiac catheterization revealed clean arteries. There is no indication of seizure disorder in the available medical records. The patient had recurring seizures, seizures were 30-40 seconds. He then will be nonresponsive, then wake up interacting. At times he moans, at times he has obvious clear conversation. He informed us that he had seizures in the past, none obviously recently. He may have been on Dilantin previously. He is on no obvious seizure medications now. He has been drinking alcohol today. It is unclear if he has had withdrawal seizures. He is currently intoxicated paramedics noted a glucose level in 60s at the time of their initial evaluation. He was given D10 W. he has no history of diabetes. Upon arrival he is having brief, recurring seizure activity. Paramedics gave 2 5 mg doses of Versed, a 3rd dose was given here. As seizure activity continue, he was started on Keppra a total of 1500 mg was given. He then received Ativan 2 mg IV. He was asleep for well over an hour, he awoke and was conversive. The recurrent seizure activity returned. He was given Versed, then Ativan. He was given Keppra an additional 500 mg IV. There is no evidence of recent illness. His history is obviously limited. Although he converses intermittently, communication is limited. Related Data Allergies Allergy/AdvReac Type Severity Reaction Status Date / Time gabapentin Allergy ITCHING Verified 11/18/19 21:04 Iodinated Contrast Media Allergy Verified 11/23/19 03:55 prochlorperazine Allergy Anaphylaxis Verified 11/18/19 21:04 [From Compazine] metoclopramide [From Reglan] AdvReac Vomiting Verified 11/18/19 21:04 Review of Systems Review of Systems ROS Unobtainable: Unobtainable due to medical condition Patient History Medical History (Updated 12/06/19 @ 03:04 by Ric aFm MD) Coronary artery disease (Acute) Surgical History (Updated 12/06/19 @ 02:57 by Ric Fam MD) H/O cardiac catheterization (Acute) Social History Smoking Status: Current every day smoker Smoking Status: Current every day smoker alcohol intake frequency: 0-2 drinks per day Substance Use Type: does not use Exam Initial Vital Signs Initial Vital Signs: Vital Signs Pulse Rate 96 H 12/05/19 22:25 Respiratory Rate 26 H 12/05/19 22:25 Blood Pressure 132/72 12/05/19 22:25 Pulse Oximetry 92 12/05/19 22:25 Const General: cooperative, well developed and acute distress Other: Recurring, brief seizures HENMT Mouth: oral mucosae normal, lip normal and tongue normal Eyes General: appearance normal, both eyes and all related structures Eyelids: eyelids normal Conjunctivae: conjunctivae normal Sclera: sclerae normal Pupils: PERRL and pupil size bilaterally EOM: EOM intact bilaterally Cardio Rate: regular rate Rhythm: regular rhythm Heart Sounds: no click, no gallops, no murmurs and no rubs Pulses: normal peripheral pulses GI Inspection: non-distended Palpation: soft, no hepatosplenomegaly, No guarding, No pulsatile mass and No tender Auscultation: normal bowel sounds External: normal external exam Penis: normal penis Back/Spine/Pelvis Back: No CVA tenderness Skin General: no rashes or lesions noted, jaundice and No petechiae Neuro General: alert Other: Recurrent, brief tonic clonic seizures. See HPI. Course Course Course Narrative: The patient had received two 5 mg doses of Versed prior to arrival, brief tonic-clonic episodes persisted, with periods of awaking and interaction between the seizures. He received Keppra is 1500 mg IV. Seizure activity finally PA's after Ativan 2 mg IV was added. His glucose was 60 in the field, he has stabilized be with glucose greater than 100 after receiving the remainder of the D10 here. He slept for approximately 1.5 hours, he woke with recurring seizure activity. Another 500 mg of Keppra was given. We tempted Versed again, with low resolve, but he did improve once again after receiving Ativan 2 mg IV. His case was discussed with Dr. DOWNS, Neurology at [facility]. He agreed to accept this patient. Dr. Mcneill, [facility], was also made aware of the patient, he will be received in the ER. Orders Ordered: ED Orders 12/05/19 22:22 CT head/brain wo con Stat 12/05/19 22:25 EKG-12 Lead Stat 12/05/19 22:30 Complete Blood Count AUTO DIFF Stat Comprehensive Metabolic Panel Stat D Dimer Stat Ethanol (ETOH) Stat Lipase Stat Magnesium Stat Phenytoin / Dilantin Stat Prothrombin Time INR Stat Troponin & CK Cardiac Panel Stat Urinalysis Screen (Dip Only) Stat Urine Drug Screen, Rapid Stat 12/05/19 23:12 XR chest 1V Stat 12/06/19 01:51 Phosphorous Stat Midazolam HCl 50 mg/ Dextrose 250 mls @ 25 mls/hr IV TITRATE SJ; Protocol Last Admin: 12/06/19 02:23 Dose: 5 mg/hr, 25 mls/hr Documented by: DENISE Sodium Chloride (Normal Saline 0.9%) 1,000 mls @ 150 mls/hr IV CONT SJ Last Admin: 12/06/19 01:05 Dose: 150 mls/hr Documented by: DENISE Potassium Chloride 20 meq/ (Sodium Chloride) 260 mls @ 130 mls/hr IV NOW ONE Stop: 12/06/19 03:22 Last Admin: 12/06/19 02:02 Dose: 130 mls/hr Documented by: WAYLONL Cosigned by: FRACISCO Discontinued Medications Levetiracetam 1,000 mg/ Sodium (Chloride) 110 mls @ 440 mls/hr IV NOW ONE Stop: 12/05/19 22:16 Last Infusion: 12/05/19 23:24 Dose: 0 mls/hr Documented by: Admin: 12/05/19 22:30 Dose: 440 mls/hr Documented by: DENISE Levetiracetam 1,000 mg/ Sodium (Chloride) 110 mls @ 440 mls/hr IV NOW ONE Stop: 12/05/19 22:19 Last Admin: 12/05/19 23:24 Dose: Not Given Documented by: DENISE Levetiracetam 500 mg/ Sodium (Chloride) 105 mls @ 420 mls/hr IV NOW ONE Stop: 12/05/19 22:42 Last Infusion: 12/05/19 23:25 Dose: 0 mls/hr Documented by: Admin: 12/05/19 23:23 Dose: 420 mls/hr Documented by: DENISE Levetiracetam 500 mg/ Sodium (Chloride) 105 mls @ 420 mls/hr IV NOW ONE Stop: 12/06/19 02:36 Lorazepam (Ativan) 2 mg IV NOW ONE Stop: 12/05/19 23:08 Last Admin: 12/05/19 23:23 Dose: 2 mg Documented by: DENISE Lorazepam (Ativan) 2 mg IV NOW ONE Stop: 12/06/19 02:43 Last Admin: 12/06/19 02:45 Dose: 2 mg Documented by: FRACISCO Midazolam HCl (Versed) 5 mg IV NOW ONE Stop: 12/05/19 22:19 Last Admin: 12/05/19 22:15 Dose: Not Given Documented by: DENISE Vital Signs Vital signs: Vital Signs - 8 hr 12/05/19 22:25 12/05/19 22:36 12/05/19 23:38 Temperature 98.9 F Pulse Rate 96 H 98 H 85 Respiratory Rate 26 H 28 H 17 Blood Pressure 132/72 Blood Pressure [Right Arm] 132/72 116/61 Pulse Oximetry 92 92 96 12/06/19 00:18 12/06/19 01:06 12/06/19 01:48 Temperature Pulse Rate 86 86 81 Respiratory Rate 18 17 16 Blood Pressure Blood Pressure [Right Arm] 130/59 L 130/69 109/56 L Pulse Oximetry 97 97 92 MDM - Seizure Lab Data Result diagrams: 12/05/19 22:30 12/05/19 22:30 Labs: Lab Results 12/05/19 12/05/19 12/05/19 Range/Units 22:30 22:30 22:30 WBC 7.6 (4.5-11.0) X10^3/uL RBC 4.95 (4.5-5.9) X10^6/uL Hgb 15.1 (13.5-17.5) g/dL Hct 43.4 (41-53) % MCV 87.7 (80-100) fL MCH 30.5 (26-34) PG MCHC 34.7 (30-36) % RDW 12.6 (11.6-14.8) % Plt Count 210 (150-400) X10^3/uL Neut % (Auto) 46.5 L (50-75) % Lymph % (Auto) 42.7 H (25-40) % [place] % (Auto) 7.8 (3-14) % Eos % (Auto) 2.5 (2-4) % Baso % (Auto) 0.5 (0-2) % Neut # (Auto) 3500 (9931-6018) /uL Lymph # (Auto) 3200 (6980-2834) /uL [place] # (Auto) 600 (0-900) /uL Eos # (Auto) 200 (0-450) /uL Baso # (Auto) 0 (0-100) /uL PT (10.1-12.7) SECONDS INR (0.9-1.3) D-Dimer (<230) ng/mL Sodium 146 H (137-145) mmol/L Potassium 3.3 L (3.4-5.1) mmol/L Chloride 108 H (98-107) mmol/L Carbon Dioxide 25 (22-32) mmol/L BUN 10 (9-20) mg/dL Creatinine 0.80 (0.66-1.25) mg/dL Estimated GFR > 60.0 (>60) mL/min BUN/Creatinine Ratio 12.5 (6-22) Glucose 77 (70-100) mg/dL Calcium 9.7 (8.4-10.2) mg/dL Phosphorus (2.5-4.5) mg/dL Magnesium 2.4 H (1.6-2.3) mg/dL Total Bilirubin 0.4 (0.2-1.3) mg/dL AST 34 (17-59) IU/L ALT 35 (<50) IU/L Alkaline Phosphatase 52 (38-126) U/L Total Creatine Kinase (55-170) U/L CK-MB (CK-2) (<2.37) ng/mL CK-MB (CK-2) Rel Index (1.5-5.0) % Troponin I (0.01-0.034) ng/mL Total Protein 7.3 (6.3-8.2) g/dL Albumin 4.4 (3.5-5.0) g/dL Globulin 2.9 (1.7-4.1) g/dL Albumin/Globulin Ratio 1.5 (1.0-2.8) Lipase 39 (23-300) U/L Urine Color Urine Appearance Urine pH (4.5-8.0) Ur Specific Martin (1.000-1.035) Urine Protein (Negative) Urine Glucose (UA) (Negative) g/dL Urine Ketones (NEGATIVE) Urine Occult Blood (Negative) Urine Nitrate (Negative) Urine Bilirubin (NEGATIVE) Urine Urobilinogen (0.2) E.U./dL Ur Leukocyte Esterase (NEGATIVE) U Opiates 300ng/mL cut (Negative) Ur Oxycodone Screen (Negative) Urine Methadone Screen (Negative) Ur Barbiturates Screen (Negative) Phenytoin (10-20) ug/mL U Tricyclic Antidepress (Negative) Ur Phencyclidine Scrn (Negative) Ur Amphetamines Screen (Negative) U Methamphetamines Scrn (Negative) Ur MDMA Scrn (Ecstasy) (Negative) U Benzodiazepines Scrn (Negative) Urine Cocaine Screen (Negative) U Marijuana (THC) Screen (Negative) Ethyl Alcohol 164 H ( - 10) mg/dL 12/05/19 12/05/19 12/05/19 Range/Units 22:30 22:30 22:30 WBC (4.5-11.0) X10^3/uL RBC (4.5-5.9) X10^6/uL Hgb (13.5-17.5) g/dL Hct (41-53) % MCV (80-100) fL MCH (26-34) PG MCHC (30-36) % RDW (11.6-14.8) % Plt Count (150-400) X10^3/uL Neut % (Auto) (50-75) % Lymph % (Auto) (25-40) % [place] % (Auto) (3-14) % Eos % (Auto) (2-4) % Baso % (Auto) (0-2) % Neut # (Auto) (3732-9429) /uL Lymph # (Auto) (9319-5681) /uL [place] # (Auto) (0-900) /uL Eos # (Auto) (0-450) /uL Baso # (Auto) (0-100) /uL PT (10.1-12.7) SECONDS INR (0.9-1.3) D-Dimer (<230) ng/mL Sodium (137-145) mmol/L Potassium (3.4-5.1) mmol/L Chloride (98-107) mmol/L Carbon Dioxide (22-32) mmol/L BUN (9-20) mg/dL Creatinine (0.66-1.25) mg/dL Estimated GFR (>60) mL/min BUN/Creatinine Ratio (6-22) Glucose (70-100) mg/dL Calcium (8.4-10.2) mg/dL Phosphorus (2.5-4.5) mg/dL Magnesium (1.6-2.3) mg/dL Total Bilirubin (0.2-1.3) mg/dL AST (17-59) IU/L ALT (<50) IU/L Alkaline Phosphatase (38-126) U/L Total Creatine Kinase (55-170) U/L CK-MB (CK-2) (<2.37) ng/mL CK-MB (CK-2) Rel Index (1.5-5.0) % Troponin I (0.01-0.034) ng/mL Total Protein (6.3-8.2) g/dL Albumin (3.5-5.0) g/dL Globulin (1.7-4.1) g/dL Albumin/Globulin Ratio (1.0-2.8) Lipase (23-300) U/L Urine Color Yellow Urine Appearance Clear Urine pH 5.5 (4.5-8.0) Ur Specific Martin <=1.005 (1.000-1.035) Urine Protein Negative (Negative) Urine Glucose (UA) Negative (Negative) g/dL Urine Ketones Negative (NEGATIVE) Urine Occult Blood Trace-lysed (Negative) Urine Nitrate Negative (Negative) Urine Bilirubin Negative (NEGATIVE) Urine Urobilinogen 0.2 (0.2) E.U./dL Ur Leukocyte Esterase Negative (NEGATIVE) U Opiates 300ng/mL cut Negative (Negative) Ur Oxycodone Screen Negative (Negative) Urine Methadone Screen Negative (Negative) Ur Barbiturates Screen Negative (Negative) Phenytoin < 3.0 L (10-20) ug/mL U Tricyclic Antidepress Negative (Negative) Ur Phencyclidine Scrn Negative (Negative) Ur Amphetamines Screen Negative (Negative) U Methamphetamines Scrn Negative (Negative) Ur MDMA Scrn (Ecstasy) Negative (Negative) U Benzodiazepines Scrn Positive H (Negative) Urine Cocaine Screen Negative (Negative) U Marijuana (THC) Screen Negative (Negative) Ethyl Alcohol ( - 10) mg/dL 12/05/19 12/05/19 12/05/19 Range/Units 22:30 22:30 22:30 WBC (4.5-11.0) X10^3/uL RBC (4.5-5.9) X10^6/uL Hgb (13.5-17.5) g/dL Hct (41-53) % MCV (80-100) fL MCH (26-34) PG MCHC (30-36) % RDW (11.6-14.8) % Plt Count (150-400) X10^3/uL Neut % (Auto) (50-75) % Lymph % (Auto) (25-40) % [place] % (Auto) (3-14) % Eos % (Auto) (2-4) % Baso % (Auto) (0-2) % Neut # (Auto) (6886-5208) /uL Lymph # (Auto) (9464-6146) /uL [place] # (Auto) (0-900) /uL Eos # (Auto) (0-450) /uL Baso # (Auto) (0-100) /uL PT 10.5 (10.1-12.7) SECONDS INR 0.9 (0.9-1.3) D-Dimer < 200 (<230) ng/mL Sodium (137-145) mmol/L Potassium (3.4-5.1) mmol/L Chloride (98-107) mmol/L Carbon Dioxide (22-32) mmol/L BUN (9-20) mg/dL Creatinine (0.66-1.25) mg/dL Estimated GFR (>60) mL/min BUN/Creatinine Ratio (6-22) Glucose (70-100) mg/dL Calcium (8.4-10.2) mg/dL Phosphorus (2.5-4.5) mg/dL Magnesium (1.6-2.3) mg/dL Total Bilirubin (0.2-1.3) mg/dL AST (17-59) IU/L ALT (<50) IU/L Alkaline Phosphatase (38-126) U/L Total Creatine Kinase 158 (55-170) U/L CK-MB (CK-2) 1.07 (<2.37) ng/mL CK-MB (CK-2) Rel Index 0.7 L (1.5-5.0) % Troponin I < 0.012 (0.01-0.034) ng/mL Total Protein (6.3-8.2) g/dL Albumin (3.5-5.0) g/dL Globulin (1.7-4.1) g/dL Albumin/Globulin Ratio (1.0-2.8) Lipase (23-300) U/L Urine Color Urine Appearance Urine pH (4.5-8.0) Ur Specific Martin (1.000-1.035) Urine Protein (Negative) Urine Glucose (UA) (Negative) g/dL Urine Ketones (NEGATIVE) Urine Occult Blood (Negative) Urine Nitrate (Negative) Urine Bilirubin (NEGATIVE) Urine Urobilinogen (0.2) E.U./dL Ur Leukocyte Esterase (NEGATIVE) U Opiates 300ng/mL cut (Negative) Ur Oxycodone Screen (Negative) Urine Methadone Screen (Negative) Ur Barbiturates Screen (Negative) Phenytoin (10-20) ug/mL U Tricyclic Antidepress (Negative) Ur Phencyclidine Scrn (Negative) Ur Amphetamines Screen (Negative) U Methamphetamines Scrn (Negative) Ur MDMA Scrn (Ecstasy) (Negative) U Benzodiazepines Scrn (Negative) Urine Cocaine Screen (Negative) U Marijuana (THC) Screen (Negative) Ethyl Alcohol ( - 10) mg/dL 12/05/19 Range/Units 22:30 WBC (4.5-11.0) X10^3/uL RBC (4.5-5.9) X10^6/uL Hgb (13.5-17.5) g/dL Hct (41-53) % MCV (80-100) fL MCH (26-34) PG MCHC (30-36) % RDW (11.6-14.8) % Plt Count (150-400) X10^3/uL Neut % (Auto) (50-75) % Lymph % (Auto) (25-40) % [place] % (Auto) (3-14) % Eos % (Auto) (2-4) % Baso % (Auto) (0-2) % Neut # (Auto) (9769-6714) /uL Lymph # (Auto) (6725-3362) /uL [place] # (Auto) (0-900) /uL Eos # (Auto) (0-450) /uL Baso # (Auto) (0-100) /uL PT (10.1-12.7) SECONDS INR (0.9-1.3) D-Dimer (<230) ng/mL Sodium (137-145) mmol/L Potassium (3.4-5.1) mmol/L Chloride (98-107) mmol/L Carbon Dioxide (22-32) mmol/L BUN (9-20) mg/dL Creatinine (0.66-1.25) mg/dL Estimated GFR (>60) mL/min BUN/Creatinine Ratio (6-22) Glucose (70-100) mg/dL Calcium (8.4-10.2) mg/dL Phosphorus 3.6 (2.5-4.5) mg/dL Magnesium (1.6-2.3) mg/dL Total Bilirubin (0.2-1.3) mg/dL AST (17-59) IU/L ALT (<50) IU/L Alkaline Phosphatase (38-126) U/L Total Creatine Kinase (55-170) U/L CK-MB (CK-2) (<2.37) ng/mL CK-MB (CK-2) Rel Index (1.5-5.0) % Troponin I (0.01-0.034) ng/mL Total Protein (6.3-8.2) g/dL Albumin (3.5-5.0) g/dL Globulin (1.7-4.1) g/dL Albumin/Globulin Ratio (1.0-2.8) Lipase (23-300) U/L Urine Color Urine Appearance Urine pH (4.5-8.0) Ur Specific Martin (1.000-1.035) Urine Protein (Negative) Urine Glucose (UA) (Negative) g/dL Urine Ketones (NEGATIVE) Urine Occult Blood (Negative) Urine Nitrate (Negative) Urine Bilirubin (NEGATIVE) Urine Urobilinogen (0.2) E.U./dL Ur Leukocyte Esterase (NEGATIVE) U Opiates 300ng/mL cut (Negative) Ur Oxycodone Screen (Negative) Urine Methadone Screen (Negative) Ur Barbiturates Screen (Negative) Phenytoin (10-20) ug/mL U Tricyclic Antidepress (Negative) Ur Phencyclidine Scrn (Negative) Ur Amphetamines Screen (Negative) U Methamphetamines Scrn (Negative) Ur MDMA Scrn (Ecstasy) (Negative) U Benzodiazepines Scrn (Negative) Urine Cocaine Screen (Negative) U Marijuana (THC) Screen (Negative) Ethyl Alcohol ( - 10) mg/dL Point of Care Testing Glucose POC 132 Imaging Data Chest x-ray: Attestation: I personally reviewed and interpreted this imaging study as follows: My Impression: No acute findings CT scan - head: Radiologist's Impression: No acute intracranial findings. ECG Data Attestation: I personally reviewed and interpreted this ECG as follows: (Normal sinus rhythm rate 87 beats per minute. Normal intervals. No ectopy. No acute ST T wave changes.) Critical Care Time Critical Care Time Critical Care Time: Yes Total Critical Care Time: 60 Attestation: Care included the initial evaluation, and multiple clinical decisions. Medical records were reviewed. Radiology, EKG, and lab information was reviewed. Additional clinical decisions required. Consultation was obtained with Neurology and ER at [facility]. Transfer to [facility] was arranged. Discharge Plan Departure Patient Disposition: [facility] Clinical Impression: Status epilepticus
[2019-12-05] MEDS: levETIRAcetam 500 MG in SODIUM CHLORIDE 0.9% 100 ML 420 ML IV (23:23)
[2019-12-05] MEDS: LORazepam 2 MG/ML INJ IV (23:23)
[2019-12-05] MEDS: ONDANSETRON 4 MG/2 ML INJ (23:23)
[2019-12-05 23:25] LABS: Phenytoin / Dilantin < 3.0 ug/mL (10-20); Troponin I < 0.012 ng/mL (0.01-0.034)
[2019-12-05 23:29] LABS: CKMB % Relative Index 0.7 % (1.5-5.0); Creatine Kinase MB 1.07 ng/mL (<2.37)
[2019-12-05 23:38] VITALS: BP 116/61; PULSE 85; RESP 17; O2SAT 96
[2019-12-05 23:38] LABS: Lipase 39 U/L (23-300)
--- NOTE | 2019-12-05 23:42 | PC.NURSE ---
from time of arrival to ED, pt continues to have frequent episodes of tonic/clonic sz activity lasting 10-30 seconds, pt immediately returns to drowsy/verbal state, repeats I had a seizure, answering some questions with slurred speech
[2019-12-06 00:02] LABS: D Dimer < 200 ng/mL (<230)
[2019-12-06 00:18] VITALS: BP 130/59; PULSE 86; RESP 18; O2SAT 97
[2019-12-06] MEDS: SODIUM CHLORIDE 0.9% 1,000 ML 150 ML IV (01:05)
[2019-12-06 01:06] VITALS: BP 130/69; PULSE 86; RESP 17; O2SAT 97
[2019-12-06 01:48] VITALS: BP 109/56; PULSE 81; RESP 16; O2SAT 92
[2019-12-06] MEDS: POTASSIUM CHLORIDE 20 MEQ in SODIUM CHLORIDE 0.9% 250 ML 130 ML IV (02:02)
[2019-12-06 02:15] LABS: Phosphorous 3.6 mg/dL (2.5-4.5)
[2019-12-06] MEDS: MIDAZOLAM 50 MG in DEXTROSE 5% IN WATER 250 ML 25 ML IV (02:23)
[2019-12-06] MEDS: LORazepam 2 MG/ML INJ IV (02:45)
[2019-12-06] MEDS: levETIRAcetam 500 MG in SODIUM CHLORIDE 0.9% 100 ML 420 ML IV (02:50)
[2019-12-06 02:51] VITALS: BP 132/77; PULSE 88; RESP 18; O2SAT 97
== END 2019-12-06 02:50 | disposition short-term general hospital (02) ==
PROVIDERS: Emergency Provider Emergency Medicine
DX: G40.901 Epilepsy, unspecified, not intractable, with status epilepticus (principal); I25.10 Atherosclerotic heart disease of native coronary artery without angina pectoris
CPT/HCPCS: 36415; 70450; 71045; 80053; 80185; 80305; 80320; 81003; 82550; 82553; 82962; 83690; 83735; 84100; 84484; 85025; 85379; 85610; 93005; 93010; 96361; 96365; 96366; 96367; 96375; 96376; 99285; 99291; 99292; J1953; J2060; J2250; J2405; J3480

== ENCOUNTER 2019-12-23 00:44 | Emergency (ER) | payer OTHER, SELFPAY ==
[2019-12-23 00:59] VITALS: BP 141/76; PULSE 94; RESP 23; TEMP 36.6; O2SAT 98; BMI 32.1
--- NOTE | 2019-12-23 01:03 | DI.RAD.S_ITS ---
PROCEDURE: XR CHEST 1V INDICATIONS: Cough with shortness of breath TECHNIQUE: One view of the chest was acquired. COMPARISON: [facility], CR, XR CHEST 1V, 12/05/2019, 23:16. FINDINGS: Surgical changes and devices: None. Lungs and pleura: There may be mild airspace disease along the inferior aspect of the right upper lobe. No effusion or pneumothorax is evident. A large area of pulmonary consolidation is identified. Mediastinum: Mediastinal contours appear normal. Heart size is normal. Bones and chest wall: No suspicious bony lesions. Overlying soft tissues appear unremarkable. IMPRESSION: Atelectasis versus pneumonia when the inferior aspect of the right upper lobe. Please correlate clinically. No overt heart failure. Dictated by: Alex Infante M.D. on 12/23/2019 at 8:34 Approved by: Alex Infante M.D. on 12/23/2019 at 8:34
[2019-12-23] MEDS: ALBUTEROL HFA PREPACK 1 BOX MISC (01:10)
[2019-12-23] MEDS: methylPREDNISolone 125 MG/2 ML VIAL IV (01:14)
[2019-12-23 01:31] VITALS: PULSE 82; RESP 20; O2SAT 94
[2019-12-23 01:47] LABS: Add Manual Diff / Slide Review NO; Basophils Absolute Auto 100 /uL (0-100); Basophils Percent Auto 0.7 % (0-2); Eosinophils Absolute Auto 300 /uL (0-450); Eosinophils Percent Auto 4.3 % (2-4); Hematocrit 42.3 % (41-53); Hemoglobin 14.3 g/dL (13.5-17.5); Lymphocytes Absolute Auto 3400 /uL (1100-4500); Lymphocytes Percent Auto 46.2 % (25-40); Mean Corpuscular HGB Conc 33.7 % (30-36); Mean Corpuscular Hemoglobin 29.7 PG (26-34); Mean Corpuscular Volume 88.2 fL (80-100); Monocytes Absolute Auto 400 /uL (0-900); Monocytes Percent Auto 4.8 % (3-14); Neutrophils Absolute Auto 3200 /uL (1500-7000); Platelet Count 224 X10^3/uL (150-400); Red Blood Cell Count 4.79 X10^6/uL (4.5-5.9); Red Cell Distribution Width 12.6 % (11.6-14.8); White Blood Cell Count 7.4 X10^3/uL (4.5-11.0)
[2019-12-23 01:49] LABS: Alanine Aminotransferase 26 IU/L (<50); Albumin Globulin Ratio 1.4 (1.0-2.8); Alkaline Phosphatase 60 U/L (38-126); Aspartate Aminotransferase 25 IU/L (17-59); BUN Creatinine Ratio 13.9 (6-22); Bilirubin Total 0.3 mg/dL (0.2-1.3); Blood Urea Nitrogen 11 mg/dL (9-20); Calcium 9.2 mg/dL (8.4-10.2); Carbon Dioxide 23 mmol/L (22-32); Chloride 110 mmol/L (98-107); Estimated Glomerular Filt Rate > 60.0 mL/min (>60); Globulin 2.8 g/dL (1.7-4.1); Glucose 152 mg/dL (70-100); HEMOLYSIS 21 (0-50); Potassium 4.1 mmol/L (3.4-5.1); Sodium 142 mmol/L (137-145); Total Protein 6.8 g/dL (6.3-8.2)
--- NOTE | 2019-12-23 01:51 | ED_ITS ---
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 This patient sits 2 chairs away from the patient. Patient states that he has become progressively sick over the past week with shortness of breath. Today he became very short of breath. Two days ago he had a fever but none today. Today he feels as though he cannot take a deep enough breath. He has been frustrated. He denies a history of diabetes mellitus but admits to history of hypertension previous myocardial infarction COPD asthma and congestive heart failure. He smokes cigarettes drinks alcohol and smokes marijuana. Over the past week he has had intermittent fever with chills and sweats a mild generalized headache without numbness tingling paresthesias anesthesia is or paresis. He has had no muscle spasms or cramps in his hands or feet. No facial numbness. He has had sinus congestion with a sore throat cough minimally productive of a clear sputum without hemoptysis. He has chest pain on coughing associated with palpitations without dizziness. He has had no significant abdominal pain or diarrhea but has been nauseous with vomiting intermittently. His emesis has been primarily food without coffee-ground emesis hematemesis or bilious emesis. He has had no urinary symptoms. Related Data Previous Rx's Medication Instructions Recorded albuterol sulfate 2 puff INHALATION Q4-6H PRN #8.5 12/23/19 gram lorazepam [Ativan] 0.5 mg PO TID PRN #12 tab 12/23/19 prednisone 60 mg PO DAILY #15 tab 12/23/19 Allergies Allergy/AdvReac Type Severity Reaction Status Date / Time gabapentin Allergy ITCHING Verified 11/18/19 21:04 Iodinated Contrast Media Allergy Verified 11/23/19 03:55 prochlorperazine Allergy Anaphylaxis Verified 11/18/19 21:04 [From Compazine] metoclopramide [From Reglan] AdvReac Vomiting Verified 11/18/19 21:04 Review of Systems Review of Systems Narrative: His review of systems were all negative except for those mentioned in the history of present illness. Patient History Medical History Coronary artery disease (Acute) Surgical History H/O cardiac catheterization (Acute) Social History Smoking Status: Current every day smoker Smoking Status: Current every day smoker alcohol intake frequency: 0-2 drinks per day Substance Use Type: does not use Exam Narrative Exam Narrative: PHYSICAL EXAM: CONSTITUTIONAL: Awake, Alert, Oriented, very anxious tapping his fingers and hands and swelling in his legs. He does not appear toxic or ill. He appears fretful. HEAD: AT/NC EENT: PERRL, FROM of eyes, no discharge, . No drainage from the ears, Tympanic membranes intact bilaterally, clear EAC Oral mucosa is moist and pink, posterior pharynx is without erythema or exudate. NECK: Supple, no obvious JVD, Trachea is midline without stridor, no palpable LN . SPINE: No gross deformity, no palpable tenderness of the cervical, thoracic, lumbar or sacral spine. No CVA tenderness. THORAX: No deformity, retractions, chest wall tenderness. LUNGS: Clear with symmetrical breath sounds without respiratory distress HEART: Normal heart tones, regular rhythm and rate without murmur. ABDOMEN: Soft, non-tender, normal bowel sounds without guarding, rebound, rigidity or palpable mass or organomegaly. LYMPHATIC: no palpable lymph nodes EXTREMITIES: No edema, cyanosis, deformity or tenderness. SKIN: No rash, bruising, petechiae or purpura. NEURO: Awake, alert, oriented, conversive, cranial nerves II-XII are symmetrical and normal, moves all 4 extremities and is ambulatory Initial Vital Signs Initial Vital Signs: Vital Signs Temperature 97.9 F 12/23/19 00:59 Pulse Rate 94 H 12/23/19 00:59 Respiratory Rate 23 12/23/19 00:59 Blood Pressure 141/76 H 12/23/19 00:59 Pulse Oximetry 98 12/23/19 00:59 Course Course Course Narrative: 0245 The patient's chest x-ray does not reveal any acute cardiopulmonary pathology by my review. 0330 the patient is very anxious with twitching of his legs and his hands. His arterial blood gases revealed a pH is 7.368 a pCO2 of 44.2 , a PO2 of 96 with an oxygen saturation of 97% on room air. For the patient's agitation he was administered 0.5 mg of Ativan. If this does not LA his anxiety and nervousness we will administer another 0.5 mg. 0400 patient was informed that his influenza a and B were both negative. I believe the patient's primary issue is that he is extremely anxious at has been possibly exposed to alexander virus. He states that 1 of the chorus members 2 seats away from him tested positive for alexander virus. 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 The patient will be discharged home and placed in self quarantine for the next 5 days until his alexander virus returns. He was informed that the hospital will contact him. Orders Ordered: Discontinued Medications Albuterol (Ventolin Hfa) 2 puff INH NOW ONE Stop: 12/23/19 01:03 Last Admin: 12/23/19 01:30 Dose: Not Given Documented by: SHANTEL Albuterol (Ventolin Hfa Prepack) 1 box MISC SEEINSTR ONE Stop: 12/23/19 01:07 Last Admin: 12/23/19 01:10 Dose: 1 box Documented by: SHANTEL Lorazepam (Ativan) 0.5 mg IV NOW ONE Stop: 12/23/19 03:19 Last Admin: 12/23/19 03:44 Dose: 0.5 mg Documented by: VAMSHI Lorazepam (Ativan) 0.5 mg IV NOW ONE Stop: 12/23/19 04:31 Lorazepam (Ativan) 1 mg PO NOW ONE Stop: 12/23/19 04:45 Last Admin: 12/23/19 04:51 Dose: 1 mg Documented by: VAMSHI Methylprednisolone (Solu-Medrol 125 Mg Vial) 125 mg IV NOW ONE Stop: 12/23/19 01:05 Last Admin: 12/23/19 01:14 Dose: 125 mg Documented by: RAFY Vital Signs Vital signs: Vital Signs - 8 hr 12/23/19 00:59 12/23/19 01:31 Temperature 97.9 F Pulse Rate 94 H 82 Respiratory Rate 23 20 Blood Pressure 141/76 H Pulse Oximetry 98 94 MDM - SOB/Dyspnea Medical Records Attestation: I reviewed the patient's medical records. Lab Data Attestation: I reviewed the patient's lab results. Result diagrams: 12/23/19 01:25 12/23/19 01:25 Labs: Lab Results 12/23/19 12/23/19 12/23/19 Range/Units 00:55 01:25 01:25 WBC 7.4 (4.5-11.0) X10^3/uL RBC 4.79 (4.5-5.9) X10^6/uL Hgb 14.3 (13.5-17.5) g/dL Hct 42.3 (41-53) % MCV 88.2 (80-100) fL MCH 29.7 (26-34) PG MCHC 33.7 (30-36) % RDW 12.6 (11.6-14.8) % Plt Count 224 (150-400) X10^3/uL Neut % (Auto) 44.0 L (50-75) % Lymph % (Auto) 46.2 H (25-40) % [place] % (Auto) 4.8 (3-14) % Eos % (Auto) 4.3 H (2-4) % Baso % (Auto) 0.7 (0-2) % Neut # (Auto) 3200 (7749-8158) /uL Lymph # (Auto) 3400 (1166-2238) /uL [place] # (Auto) 400 (0-900) /uL Eos # (Auto) 300 (0-450) /uL Baso # (Auto) 100 (0-100) /uL ABG pH (7.35-7.45) ABG pCO2 (35-45) mmHg ABG pO2 (80-100) mmHg ABG HCO3 (22-26) mmol/L ABG Total CO2 (21-31) mmol/L ABG O2 Saturation (95-100) % ABG Base Excess (-2-2) mmol/L FiO2 Sodium 142 (137-145) mmol/L Potassium 4.1 (3.4-5.1) mmol/L Chloride 110 H (98-107) mmol/L Carbon Dioxide 23 (22-32) mmol/L BUN 11 (9-20) mg/dL Creatinine 0.79 (0.66-1.25) mg/dL Estimated GFR > 60.0 (>60) mL/min BUN/Creatinine Ratio 13.9 (6-22) Glucose 152 H (70-100) mg/dL Calcium 9.2 (8.4-10.2) mg/dL Total Bilirubin 0.3 (0.2-1.3) mg/dL AST 25 (17-59) IU/L ALT 26 (<50) IU/L Alkaline Phosphatase 60 (38-126) U/L Total Protein 6.8 (6.3-8.2) g/dL Albumin 4.0 (3.5-5.0) g/dL Globulin 2.8 (1.7-4.1) g/dL Albumin/Globulin Ratio 1.4 (1.0-2.8) Influenza A (RT-PCR) Flu a negative (NEGATIVE) Influenza B (RT-PCR) Flu b negative (NEGATIVE) 12/23/19 Range/Units 03:28 WBC (4.5-11.0) X10^3/uL RBC (4.5-5.9) X10^6/uL Hgb (13.5-17.5) g/dL Hct (41-53) % MCV (80-100) fL MCH (26-34) PG MCHC (30-36) % RDW (11.6-14.8) % Plt Count (150-400) X10^3/uL Neut % (Auto) (50-75) % Lymph % (Auto) (25-40) % [place] % (Auto) (3-14) % Eos % (Auto) (2-4) % Baso % (Auto) (0-2) % Neut # (Auto) (6600-1293) /uL Lymph # (Auto) (6096-6236) /uL [place] # (Auto) (0-900) /uL Eos # (Auto) (0-450) /uL Baso # (Auto) (0-100) /uL ABG pH 7.37 (7.35-7.45) ABG pCO2 44.2 (35-45) mmHg ABG pO2 96 (80-100) mmHg ABG HCO3 26 (22-26) mmol/L ABG Total CO2 27 (21-31) mmol/L ABG O2 Saturation 97 (95-100) % ABG Base Excess 0.0 (-2-2) mmol/L FiO2 21 Sodium (137-145) mmol/L Potassium (3.4-5.1) mmol/L Chloride (98-107) mmol/L Carbon Dioxide (22-32) mmol/L BUN (9-20) mg/dL Creatinine (0.66-1.25) mg/dL Estimated GFR (>60) mL/min BUN/Creatinine Ratio (6-22) Glucose (70-100) mg/dL Calcium (8.4-10.2) mg/dL Total Bilirubin (0.2-1.3) mg/dL AST (17-59) IU/L ALT (<50) IU/L Alkaline Phosphatase (38-126) U/L Total Protein (6.3-8.2) g/dL Albumin (3.5-5.0) g/dL Globulin (1.7-4.1) g/dL Albumin/Globulin Ratio (1.0-2.8) Influenza A (RT-PCR) (NEGATIVE) Influenza B (RT-PCR) (NEGATIVE) ECG Data Attestation: I personally reviewed and interpreted this ECG as follows: Interpretation: The patient's EKG at 01:1 4:24 a.m. reveals sinus rhythm with a ventricular rate of 73. There is a small Q-wave in lead III. T-waves are inverted in lead V1. There are no other acute diagnostic ST or T-wave changes. Discharge Plan Departure Patient Disposition: Home Clinical Impression: Shortness of Breath, Anxiety, Cough Discharge Date/Time: 12/23/19 05:30 Instructions: DI for Cough -- Adult, DI for Acute Bronchitis, DI for Viral Upper Respiratory Infection -- Adult Activity Restrictions/Additional Instructions: 1. Take the Ativan 0.5 mg 3 times a day as needed for acute anxiety, nervousness and agitation. 2. Use the albuterol inhaler 1-2 puffs every 2-4 hours as needed for shortness of breath, cough, or wheezing 3. Use the prednisone 40 mg per day for the next 5 days. 4. Drink 2-3 L of fluid per day to keep yourself hydrated. 5. Place herself in self quarantine and do not go out in public for the next 5 days until the hospital cause you with the results of your alexander virus test. 6.If you develop worsening shortness of breath, difficulty in breathing, worse wheezing, chest pain, dizziness, chest pain, passing-out you need to return to the emergency department for further evaluation. Prescriptions: New lorazepam [Ativan] 0.5 mg tablet 0.5 mg PO TID PRN (Reason: anxiety) Qty: 12 RF: 0 prednisone 20 mg tablet 60 mg PO DAILY Qty: 15 RF: 0 albuterol sulfate 90 mcg/actuation HFA aerosol inhaler 2 puff INHALATION Q4-6H PRN (Reason: shortness of breath or wheezing) Qty: 8.5 RF: 2 ED Sign-out Cosign ED Attending Cosignature Attestation: I was immediately available in the department for consultation. This documentation has been reviewed and I agree with assessment and plan. Supervised by Ilya Harris MD
[2019-12-23 03:39] LABS: HCO3 ABG 26 mmol/L (22-26); Oxygen Saturation ABG 97 % (95-100); PCO2 ABG 44.2 mmHg (35-45); PO2 ABG 96 mmHg (80-100); TCO2 ABG 27 mmol/L (21-31); pH ABG 7.37 (7.35-7.45)
[2019-12-23 03:43] LABS: Influenza A - CEPHEID Flu A NEGATIVE (NEGATIVE); Influenza B - CEPHEID Flu B NEGATIVE (NEGATIVE)
[2019-12-23] MEDS: LORazepam 2 MG/ML INJ 0.5 MG IV (03:44)
[2019-12-23] MEDS: LORazepam 0.5 MG TABLET 1 MG PO (04:51)
[2019-12-23 05:28] VITALS: BP 140/84; PULSE 76; RESP 15; O2SAT 98
[2019-12-23 08:11] LABS: Fractionated Inspired Oxygen 21
[2019-12-26 17:36] LABS: COVID19 Sendout Not Detected (Not Detected)
== END 2019-12-23 05:30 | disposition home or self-care (01) ==
PROVIDERS: Emergency Provider Emergency Medicine
DX: Z20.828 Contact with and (suspected) exposure to other viral communicable diseases (principal); R06.02 Shortness of breath; F41.9 Anxiety disorder, unspecified; R05 Cough; I25.10 Atherosclerotic heart disease of native coronary artery without angina pectoris
CPT/HCPCS: 36415; 36600; 71045; 80053; 82805; 85025; 87502; 87635; 93005; 94640; 96374; 96375; 99284; J2060; J2930

== ENCOUNTER 2019-12-26 12:46 | Emergency (ER) | payer SELFPAY ==
[2019-12-26 13:08] VITALS: BP 157/96; PULSE 87; RESP 15; TEMP 36.7; O2SAT 98; BMI 32.1
--- NOTE | 2019-12-26 13:21 | PC.NURSE ---
pt reports coughing for 11 days, pt arrived with [id number] personal supply. reports not getting any better, testing for covid, no result at this time. alert and awake, appropriate to responds, skin warm dry pink, sat 98% RA.
--- NOTE | 2019-12-26 13:26 | DI.RAD.S_ITS ---
PROCEDURE: XR CHEST 1V INDICATIONS: SOB TECHNIQUE: One view of the chest was acquired. COMPARISON: [facility], CR, XR CHEST 1V, 12/05/2019, 23:16. [facility], CR, XR CHEST 1V, 12/23/2019, 1:35. FINDINGS: Surgical changes and devices: None. Lungs and pleura: Lungs are clear. No pleural effusions or pneumothorax. Mediastinum: Mediastinal contours appear normal. Heart size is normal. Bones and chest wall: No suspicious bony lesions. Overlying soft tissues appear unremarkable. IMPRESSION: No acute cardiopulmonary disease. Dictated by: Rex Martinez M.D. on 12/26/2019 at 14:03 Approved by: Rex Martinez M.D. on 12/26/2019 at 14:04
--- NOTE | 2019-12-26 13:30 | ED_ITS ---
HPI - Chest Pain General Chief Complaint: Chest Pain Stated Complaint: Bronchitis and Resp Infection, SOB, Sent from Time Seen by Provider: 12/26/19 13:15 Source: patient Mode of arrival: Ambulatory Limitations: no limitations History of Present Illness HPI narrative: 44-year-old male. Was seen here in the emergency department a couple days ago. Was tested for the novel alexander virus. This test is not resulted. He was sent home with Ativan for anxiety. Was also sent home with an albuterol inhaler and steroids. He has been taking these. He states that he feels like his respiratory status has been worsening. Related Data Previous Rx's Medication Instructions Recorded albuterol sulfate 2 puff INHALATION Q4-6H PRN #8.5 12/23/19 gram lorazepam [Ativan] 0.5 mg PO TID PRN #12 tab 12/23/19 prednisone 60 mg PO DAILY #15 tab 12/23/19 Allergies Allergy/AdvReac Type Severity Reaction Status Date / Time gabapentin Allergy ITCHING Verified 12/26/19 13:14 Iodinated Contrast Media Allergy Verified 12/26/19 13:14 prochlorperazine Allergy Anaphylaxis Verified 12/26/19 13:14 [From Compazine] metoclopramide [From Reglan] AdvReac Vomiting Verified 12/26/19 13:14 Review of Systems Constitutional Constitutional: Denies fever(s) and Denies headache(s) ENT Ears, Nose, Mouth, and Throat: Denies headache(s) Cardiovascular Cardiovascular: Reports chest pain, Denies leg edema, Reports dyspnea and Reports dyspnea on exertion Respiratory Respiratory: Reports cough, Reports dyspnea and Reports dyspnea on exertion Gastrointestinal Gastrointestinal: Denies abdominal pain, Denies nausea and Denies vomiting Musculoskeletal Musculoskeletal: Denies myalgias and Denies arthralgias Integumentary/Breasts Skin/Breast: Denies rash Neurologic Neurologic: Denies behavioral changes and Denies headache(s) Psychiatric Psychiatric: Denies behavioral changes Hematologic/Lymphatic Hematologic/Lymphatic: Denies easy bleeding and Denies easy bruising Patient History Medical History Coronary artery disease (Acute) Social History Smoking Status: Current every day smoker Smoking Status: Current every day smoker alcohol intake frequency: 0-2 drinks per day Substance Use Type: does not use Exam Initial Vital Signs Initial Vital Signs: Vital Signs Temperature 98.0 F 12/26/19 13:08 Pulse Rate 87 12/26/19 13:08 Respiratory Rate 15 12/26/19 13:08 Blood Pressure 157/96 H 12/26/19 13:08 Pulse Oximetry 98 12/26/19 13:08 Const General: cooperative, comfortable and well developed Limitations: mental status not altered HENMT Head: normal to inspection and normocephalic Resp Effort & Inspection: normal respiratory effort Auscultation: clear to auscultation bilaterally Cardio Rate: regular rate Rhythm: regular rhythm GI Inspection: non-distended Palpation: soft Skin Lesions: no lesions Rashes: no rashes Neuro General: alert and awake Cognition: normal cognition Speech: speech normal Extrem General: normal to inspection and capillary refill normal Psych Appearance: grossly normal and well kempt Scores GCS [place] coma scale eye opening: Spontaneous [place] coma scale verbal response: Orientated [place] coma scale motor response: Obey commands Patrick coma scale total score: 15 Course Orders Ordered: ED Orders 12/26/19 13:26 XR chest 1V Stat EKG-12 Lead Stat Vital Signs Vital signs: Vital Signs - 8 hr 12/26/19 13:08 12/26/19 13:38 12/26/19 14:12 Temperature 98.0 F Pulse Rate 87 69 65 Respiratory Rate 15 18 16 Blood Pressure 157/96 H Blood Pressure [Right Arm] 132/69 124/71 Pulse Oximetry 98 99 95 MDM - Chest Pain Imaging Data Chest x-ray: Radiologist's Impression: [address] [address] XRay Report Signed Patient: Angelito Joshi BMR#: [id number] : 1975Acct:[id number] Age/Sex: 44 / MDate of Service: 12/26/19 Loc: ED Accession Number: [id number] Procedure: XR chest 1V Ordering Provider: Martin Castelan D.O. PROCEDURE: XR CHEST 1V INDICATIONS: SOB TECHNIQUE: One view of the chest was acquired. COMPARISON: [facility], CR, XR CHEST 1V, 12/05/2019, 23:16. [facility], CR, XR CHEST 1V, 12/23/2019, 1:35. FINDINGS: Surgical changes and devices: None. Lungs and pleura: Lungs are clear. No pleural effusions or pneumothorax. Mediastinum: Mediastinal contours appear normal. Heart size is normal. Bones and chest wall: No suspicious bony lesions. Overlying soft tissues appear unremarkable. IMPRESSION: No acute cardiopulmonary disease. Dictated by: Rex Martinez M.D. on 12/26/2019 at 14:03 Approved by: Rex Martinez M.D. on 12/26/2019 at 14:04 ECG Data Attestation: I personally reviewed and interpreted this ECG as follows: Prior ECG tracings: not available for review Interpretation: Sinus rhythm Ventricular rate is 73 Normal QRS Normal QTC No ST T wave changes MDM Narrative Medical decision making narrative: Patient's novel alexander virus test pending. Chest x-ray today improved from prior. No fevers. Not hypoxic. Not tachypneic. Has medications at home. No indications for admission. Patient was provided reassurance. Discussed return precautions and follow-up instructions. He expressed understanding and agreement. Discharge Plan Departure Patient Disposition: Home Clinical Impression: Viral upper respiratory infection Instructions: DI for Viral Upper Respiratory Infection -- Adult Activity Restrictions/Additional Instructions: Your COVID-19 test is still pending today. We will call you for any positive or negative results. Recommend that you still continue to self quarantine. Cover your cough and wash your hands frequently. Return to the emergency department for any new or worsening symptoms Prescriptions: No Action lorazepam [Ativan] 0.5 mg tablet 0.5 mg PO TID PRN (Reason: anxiety) Qty: 12 RF: 0 prednisone 20 mg tablet 60 mg PO DAILY Qty: 15 RF: 0 albuterol sulfate 90 mcg/actuation HFA aerosol inhaler 2 puff INHALATION Q4-6H PRN (Reason: shortness of breath or wheezing) Qty: 8.5 RF: 2
[2019-12-26 13:38] VITALS: BP 132/69; PULSE 69; RESP 18; O2SAT 99
[2019-12-26 14:12] VITALS: BP 124/71; PULSE 65; RESP 16; O2SAT 95
[2019-12-26 14:40] VITALS: BP 136/76; PULSE 77; RESP 24; O2SAT 96
== END 2019-12-26 14:42 | disposition home or self-care (01) ==
PROVIDERS: Emergency Provider Emergency Medicine
DX: J06.9 Acute upper respiratory infection, unspecified (principal); R05 Cough; R07.9 Chest pain, unspecified; R06.00 Dyspnea, unspecified; R06.02 Shortness of breath
CPT/HCPCS: 71045; 93005; 99283; 99284

== ENCOUNTER 2020-03-30 22:43 | Emergency (ER) | payer SELFPAY ==
[2020-03-30 22:50] VITALS: BP 167/96; PULSE 62; RESP 20; TEMP 36.2; O2SAT 96; BMI 30.8
--- NOTE | 2020-03-30 22:52 | ED_ITS ---
HPI - Back Pain/Injury General Chief Complaint: Back Pain/Injury Stated Complaint: sciatica pain Time Seen by Provider: 03/30/20 22:46 Source: patient Mode of arrival: Ambulatory Limitations: no limitations History of Present Illness HPI Narrative: 44-year-old male daily smoker with history of sciatica presents with a chief complaint of a sudden onset left lower back pain with radiation into his left leg for the past 2 days. He states he was hiking, and jumped off of a log from just a few feet and felt an immediate pain in his lower back with radiation into his left leg. His pain is worse with motion and improves with rest. He denies any numbness, tingling or weakness. He denies any trouble controlling bowel or bladder. He denies any numbness in his groin or footdrop. He denies any history of IV drug abuse, fever or midline pain MD Complaint: back pain and back injury Onset (ago): day(s) Duration: constant Similar Symptoms Previously: Yes Location: left lower back Severity: severe Quality: burning and sharp Radiation: left leg Relieving factors: immobilization Exacerbating factors: movement Context: other Associated symptoms: denies other symptoms Related Data Previous Rx's Medication Instructions Recorded albuterol sulfate 2 puff INHALATION Q4-6H PRN #8.5 12/23/19 gram prednisone 20 mg tablet See Rx Instructions PO DAILY #19 01/01/20 tab amoxicillin 500 mg capsule 1,000 mg PO TID #28 cap 01/04/20 azithromycin 250 mg tablet See Rx Instructions PO .COMPLEX #6 01/04/20 tab hydroxyzine HCl 25 mg tablet 25 mg PO TID PRN #30 tab 01/04/20 diazepam [Valium] 2 mg PO BID-TID PRN #10 tab 03/30/20 hydrocodone-acetaminophen 1 tab PO Q4-6H PRN #10 tab 03/30/20 ketorolac 10 mg PO Q6H PRN #14 tab 03/30/20 prednisone See Rx Instructions .ROUTE 03/30/20 .COMPLEX #30 tab Allergies Allergy/AdvReac Type Severity Reaction Status Date / Time gabapentin Allergy ITCHING Verified 03/30/20 22:50 Iodinated Contrast Media Allergy Verified 03/30/20 22:50 prochlorperazine Allergy Anaphylaxis Verified 03/30/20 22:50 [From Compazine] metoclopramide [From Reglan] AdvReac Vomiting Verified 03/30/20 22:50 Review of Systems Constitutional Constitutional: Denies chills, Denies fatigue, Denies fever(s), Denies frequent falls, Denies lethargy and Denies weakness Eyes Eyes: Denies change in vision, Denies eye discharge, Denies irritation and Denies loss of vision ENT Ears, Nose, Mouth, and Throat: Denies change in voice, Denies dizziness, Denies neck pain, Denies sore throat and Denies throat swelling Cardiovascular Cardiovascular: Denies chest pain, Denies irregular heart rhythm, Denies lightheadedness, Denies palpitations, Denies dyspnea, Denies dyspnea on exertion and Denies orthopnea Respiratory Respiratory: Denies cough, Denies dyspnea, Denies dyspnea on exertion and Denies wheezing Gastrointestinal Gastrointestinal: Denies abdominal pain, Denies change in bowel habits, Denies diarrhea, Denies nausea and Denies vomiting Musculoskeletal Musculoskeletal: Reports abnormal gait, Reports back pain, Denies neck pain, Denies numbness and Reports radiating pain into limb Integumentary/Breasts Skin/Breast: Denies pruritus, Denies erythema, Denies rash and Denies wounds Neurologic Neurologic: Reports abnormal gait, Denies behavioral changes, Denies confusion, Denies dizziness, Denies frequent falls, Denies loss of vision, Denies numbness and Denies weakness Psychiatric Psychiatric: Denies anxiety, Denies behavioral changes, Denies confusion, Denies depression, Denies homicidal ideation and Denies suicidal ideation Endocrine Endocrine: Denies fatigue, Denies flushing and Denies palpitations Hematologic/Lymphatic Hematologic/Lymphatic: Denies easy bruising Allergic/Immunologic Allergic/Immunologic: Denies urticaria, Denies throat swelling and Denies wheezing Patient History Medical History Coronary artery disease (Acute) Surgical History H/O cardiac catheterization (Acute) Social History Smoking Status: Current every day smoker Smoking Status: Current every day smoker alcohol intake frequency: 0-2 drinks per day Substance Use Type: does not use Exam Narrative Exam Narrative: GEN: AOx3 and in mild distress EYES: Pupils are equal, round, and reactive to light and accommodation. Extraoccular muscles are intact bilaterally. There is no subconjunctival hemorrhage or exudate. CHEST: Lungs are clear to auscultation bilaterally and free of wheezes, rales, or rhonchi. Heart rate is regular rhythm, there are no murmurs, clicks, rubs, or gallops. There is no chest wall tenderness. ABD: Abdomen is soft and nontender. There is no guarding or rebound. Bowel sounds are normal in all 4 quadrants. There is no mass or organomegaly. EXT: Full painless ROM of all extremities with no loss of sensation or strength. SKIN: Warm, pink, and dry. No erythema or rash BACK: high speed warper tender but free of any obvious external abnormalities. Patient exam notes decreased range of motion and muscle spasm, but no CVA tenderness, or vertebral point tenderness. There are no symptoms of cauda equina such as saddle anesthesia, and decreased reflexes, decreased sensation or strength. Initial Vital Signs Initial Vital Signs: Vital Signs Temperature 97.1 F L 03/30/20 22:50 Pulse Rate 62 03/30/20 22:50 Respiratory Rate 20 03/30/20 22:50 Blood Pressure 167/96 H 03/30/20 22:50 Pulse Oximetry 96 03/30/20 22:50 Course Orders Ordered: Discontinued Medications Hydrocodone Bitart/Acetaminophen (Vicodin 5/325 Prepack) 1 bottle MISC SEEINSTR ONE Stop: 03/30/20 22:53 Last Admin: 03/30/20 23:00 Dose: 1 bottle Documented by: KAYCEE Diazepam (Valium) 5 mg PO NOW ONE Stop: 03/30/20 22:53 Last Admin: 03/30/20 23:01 Dose: 5 mg Documented by: KAYCEE Ketorolac Tromethamine (Toradol) 60 mg IM NOW ONE Stop: 03/30/20 22:53 Last Admin: 03/30/20 23:00 Dose: 60 mg Documented by: KAYCEE Prednisone (Deltasone) 60 mg PO NOW ONE Stop: 03/30/20 22:53 Last Admin: 03/30/20 23:01 Dose: 60 mg Documented by: KAYCEE Vital Signs Vital signs: Vital Signs - 8 hr 03/30/20 22:50 Temperature 97.1 F L Pulse Rate 62 Respiratory Rate 20 Blood Pressure 167/96 H Pulse Oximetry 96 MDM - Back Pain/Injury MDM Narrative Medical decision making narrative: Multiple etiologies of back pain considered including; Epidural abscess, cauda equina, mass occupying lesion, and other considered Discharge Plan Departure Patient Disposition: Home Clinical Impression: Lumbosacral radiculopathy Discharge Date/Time: 03/30/20 23:15 Instructions: DI for Lumbar Radiculopathy Activity Restrictions/Additional Instructions: *You have been diagnosed with [acute lumbar radiculopathy] *What to do: *Take medications as directed: Prescriptions sent to [facility] in [place] at your request *Follow up with your primary care provider in 2-3 days, call for an appointment. Let them know you were seen in the Emergency Department and that we ask that you be seen in follow up *Return to ER if you should have any new, worsening or concerning symptoms, such as [inability to control bowel or bladder,, increasing pain, fever over 101 F or other bothersome symptoms] Prescriptions: New hydrocodone-acetaminophen 5-325 mg tablet 1 tab PO Q4-6H PRN (Reason: pain) Qty: 10 RF: 0 ketorolac 10 mg tablet 10 mg PO Q6H PRN (Reason: pain) Qty: 14 RF: 0 diazepam [Valium] 2 mg tablet 2 mg PO BID-TID PRN (Reason: muscle spasm) Qty: 10 RF: 0 prednisone 10 mg tablet See Rx Instructions .ROUTE .COMPLEX Qty: 30 RF: 0 No Action prednisone 20 mg tablet See Rx Instructions PO DAILY Qty: 19 RF: 0 hydroxyzine HCl 25 mg tablet 25 mg PO TID PRN (Reason: anxiety) Qty: 30 RF: 0 amoxicillin 500 mg capsule 1,000 mg PO TID Qty: 28 RF: 0 azithromycin 250 mg tablet See Rx Instructions PO .COMPLEX Qty: 6 RF: 0 albuterol sulfate 90 mcg/actuation HFA aerosol inhaler 2 puff INHALATION Q4-6H PRN (Reason: shortness of breath or wheezing) Qty: 8.5 RF: 2
[2020-03-30] MEDS: KETOROLAC 60 MG/2 ML VIAL IM (23:00)
[2020-03-30] MEDS: HYDROCODONE/ACET 5/325 PREPACK 1 BOTTLE MISC (23:00)
[2020-03-30] MEDS: predniSONE 20 MG TABLET 60 MG PO (23:01)
[2020-03-30] MEDS: diazePAM 5 MG TABLET PO (23:01)
== END 2020-03-30 23:15 | disposition home or self-care (01) ==
PROVIDERS: Emergency Provider Emergency Medicine
DX: M54.17 Radiculopathy, lumbosacral region (principal)
CPT/HCPCS: 96372; 99283; J1885

== ENCOUNTER 2020-06-11 21:32 | Emergency (ER) | payer SELFPAY ==
[2020-06-11 21:40] VITALS: BP 175/98; PULSE 73; RESP 18; TEMP 36.8; O2SAT 99; BMI 28.8
[2020-06-11] MEDS: EPINEPHrine 1 MG/ML 0.5 MG IM (21:43)
[2020-06-11] MEDS: methylPREDNISolone 125 MG/2 ML VIAL IV (21:46)
[2020-06-11] MEDS: diphenhydrAMINE 50 MG/ML VIAL 25 MG IV (21:46)
[2020-06-11 21:53] VITALS: PULSE 76; RESP 21; O2SAT 98
[2020-06-11] MEDS: ONDANSETRON 4 MG/2 ML INJ IV (21:53)
[2020-06-11] MEDS: SODIUM CHLORIDE 0.9% 1,000 ML 150 ML IV (21:54)
[2020-06-11] MEDS: FAMOTIDINE 20 MG/50 ML PIGGYBACK 200 MG IV (21:54)
[2020-06-11 22:00] VITALS: PULSE 66; RESP 18; O2SAT 97
[2020-06-11 22:01] VITALS: BP 185/79; PULSE 72; O2SAT 97
[2020-06-11 22:30] VITALS: BP 139/71; PULSE 70; RESP 21; O2SAT 98
--- NOTE | 2020-06-11 22:57 | ED_ITS ---
HPI - Allergic Reaction General Chief complaint: Allergic Reaction Stated complaint: Allergic reaction Time Seen by Provider: 06/11/20 21:33 Source: patient Mode of arrival: Family Vehicle Limitations: no limitations History of Present Illness HPI narrative: 44M daily smoker with noncontributory medical history presents with a chief complaint of red, itchy skin, scratching the back of his throat and nausea just prior to arrival. He had been down in [place] and head a few skin lesions [place] at [facility] and does not know what medications he was given. His reaction reminds him of what happens when his time by a bee. He denies any trouble swallowing or breathing. He denies any abdominal pain or diarrhea. He is otherwise well and free of complaint. He denies any exposure to any other new possible triggers MD complaint: allergic reaction Onset (ago): hour(s) Exposure: medication Symptoms: rash, itching and nausea Severity: moderate Previous Allergic Reaction History: anaphylaxis Related Data Previous Rx's Medication Instructions Recorded albuterol sulfate 2 puff INHALATION Q4-6H PRN #8.5 12/23/19 gram prednisone 20 mg tablet See Rx Instructions PO DAILY #19 01/01/20 tab amoxicillin 500 mg capsule 1,000 mg PO TID #28 cap 01/04/20 azithromycin 250 mg tablet See Rx Instructions PO .COMPLEX #6 01/04/20 tab hydroxyzine HCl 25 mg tablet 25 mg PO TID PRN #30 tab 01/04/20 diazepam [Valium] 2 mg PO BID-TID PRN #10 tab 03/30/20 hydrocodone-acetaminophen 1 tab PO Q4-6H PRN #10 tab 03/30/20 ketorolac 10 mg PO Q6H PRN #14 tab 03/30/20 prednisone See Rx Instructions .ROUTE 03/30/20 .COMPLEX #30 tab epinephrine [EpiPen] 0.3 mg IM Q5-15M PRN #2 each 06/11/20 prednisone 20 mg PO DAILY #5 tab 06/11/20 Allergies Allergy/AdvReac Type Severity Reaction Status Date / Time gabapentin Allergy ITCHING Verified 03/30/20 22:50 Iodinated Contrast Media Allergy Verified 03/30/20 22:50 prochlorperazine Allergy Anaphylaxis Verified 03/30/20 22:50 [From Compazine] metoclopramide [From Reglan] AdvReac Vomiting Verified 03/30/20 22:50 Review of Systems Constitutional Constitutional: Denies chills, Denies fatigue, Denies fever(s), Denies frequent falls, Denies lethargy and Denies weakness Eyes Eyes: Denies change in vision, Denies eye discharge, Denies irritation and Denies loss of vision ENT Ears, Nose, Mouth, and Throat: Denies change in voice, Denies dizziness, Denies neck pain, Denies sore throat and Denies throat swelling Cardiovascular Cardiovascular: Denies chest pain, Denies irregular heart rhythm, Denies lightheadedness, Denies palpitations, Denies dyspnea, Denies dyspnea on exertion and Denies orthopnea Respiratory Respiratory: Denies cough, Denies dyspnea, Denies dyspnea on exertion and Denies wheezing Gastrointestinal Gastrointestinal: Denies abdominal pain, Denies change in bowel habits, Denies diarrhea, Reports nausea and Denies vomiting Musculoskeletal Musculoskeletal: Denies neck pain and Denies numbness Integumentary/Breasts Skin/Breast: Reports pruritus, Denies erythema, Denies rash, Reports skin swelling and Denies wounds Neurologic Neurologic: Denies behavioral changes, Denies confusion, Denies dizziness, Denies frequent falls, Denies loss of vision, Denies numbness and Denies weakness Psychiatric Psychiatric: Denies anxiety, Denies behavioral changes, Denies confusion, Denies depression, Denies homicidal ideation and Denies suicidal ideation Endocrine Endocrine: Denies fatigue, Denies flushing and Denies palpitations Hematologic/Lymphatic Hematologic/Lymphatic: Denies easy bruising Allergic/Immunologic Allergic/Immunologic: Denies urticaria, Denies throat swelling and Denies wheezing Patient History Medical History Coronary artery disease (Acute) Surgical History H/O cardiac catheterization (Acute) Social History Smoking Status: Current every day smoker Smoking Status: Current every day smoker alcohol intake frequency: a few times a month Substance Use Type: marijuana Exam Narrative Exam Narrative: GENERAL: [44] year old patient appears stated age. Well- nourished, well-developed patient, in mild distress. Anxious, holding an emesis bag HEAD: Atraumatic. Normocephalic. EYES: Pupils equal round and reactive. Extraocular motions intact. No scleral icterus. No injection or drainage. ENT: No tongue, lip or throat swelling. Nose without bleeding, purulent drainage. Throat without erythema, tonsillar hypertrophy or exudate. Airway patent. NECK: Trachea midline. Non tender CARDIOVASCULAR: Regular rate and rhythm without murmurs, gallops, or rubs. RESPIRATORY: Clear to auscultation. Breath sounds equal bilaterally. No wheezes, rales, or rhonchi. GASTROINTESTINAL: Abdomen soft, non-tender, nondistended. EXTREMITIES: No edema or joint tenderness. BACK: Nontender without deformity or crepitance. No flank tenderness. NEURO: AOx3. SKIN: Widespread redness, no obvious hives, clearly pruritic, largely on chest, back and arms. Initial Vital Signs Initial Vital Signs: Vital Signs Temperature 98.3 F 06/11/20 21:40 Pulse Rate 73 06/11/20 21:40 Respiratory Rate 18 06/11/20 21:40 Blood Pressure 175/98 H 06/11/20 21:40 Pulse Oximetry 99 06/11/20 21:40 Scores ABCD2 Citation: Lancet. 2006Oct 30;369(5715):283-92. Validation and refinement of scores to predict very early stroke risk after transient ischaemic attack. Ethan SC1, Paul PM, Cristin MN, Alexy MF, Luis JS, Eusebio AL, Tomy S. Course Course Course Narrative: Patient has newly complete resolution of symptoms after the above-stated therapies. He is observed for well over an hour. He is given return precautions and has had all of his questions answered to his apparent satisfaction. Orders Ordered: Discontinued Medications Diphenhydramine HCl (Benadryl) 25 mg IV NOW ONE Stop: 06/11/20 21:35 Last Admin: 06/11/20 21:46 Dose: 25 mg Documented by: ARTIS Epinephrine HCl (Adrenalin) 0.5 mg IM NOW ONE Stop: 06/11/20 21:35 Last Admin: 06/11/20 21:43 Dose: 0.5 mg Documented by: ARTIS Famotidine (Pepcid) 20 mg in 50 mls @ 200 mls/hr IV NOW ONE Stop: 06/11/20 21:48 Last Infusion: 06/11/20 22:22 Dose: 0 mls/hr Documented by: Admin: 06/11/20 21:54 Dose: 200 mls/hr Documented by: ARTIS Sodium Chloride (Normal Saline 0.9%) 1,000 mls @ 150 mls/hr IV CONT SJ Last Infusion: 06/11/20 22:11 Dose: 0 mls/hr Documented by: Admin: 06/11/20 21:54 Dose: 150 mls/hr Documented by: ARTIS Lorazepam (Ativan) 1 mg PO NOW ONE Stop: 06/11/20 23:01 Last Admin: 06/11/20 23:14 Dose: 1 mg Documented by: VAMSHI Methylprednisolone (Solu-Medrol 125 Mg Vial) 125 mg IV NOW ONE Stop: 06/11/20 21:35 Last Admin: 06/11/20 21:46 Dose: 125 mg Documented by: ARTIS Ondansetron HCl (Zofran) 4 mg IV NOW ONE Stop: 06/11/20 21:35 Last Admin: 06/11/20 21:53 Dose: 4 mg Documented by: ARTIS Vital Signs Vital signs: Vital Signs - 8 hr 06/11/20 21:40 06/11/20 21:53 06/11/20 22:00 Temperature 98.3 F Pulse Rate 73 76 66 Respiratory Rate 18 21 18 Blood Pressure 175/98 H Pulse Oximetry 99 98 97 06/11/20 22:01 06/11/20 22:30 06/11/20 23:00 Temperature Pulse Rate 72 70 72 Respiratory Rate 21 31 H Blood Pressure 185/79 H 139/71 134/82 Pulse Oximetry 97 98 96 Discharge Plan Departure Patient Disposition: Home Clinical Impression: Allergic reaction Qualifiers: Encounter type: initial encounter Qualified Code(s): T78.40XA - Allergy, unspecified, initial encounter Discharge Date/Time: 06/11/20 23:27 Instructions: DI for General Allergic Reactions Activity Restrictions/Additional Instructions: *You have been diagnosed with [ allergic reaction] *What to do: *Take medications as directed: Prescriptions sent to [facility]'s *Follow up with your primary care provider in 2-3 days, call for an appointment. Let them know you were seen in the Emergency Department and that we ask that you be seen in follow up *Return to ER if you should have any new, worsening or concerning symptoms Prescriptions: New prednisone 20 mg tablet 20 mg PO DAILY Qty: 5 RF: 0 epinephrine [EpiPen] 0.3 mg/0.3 mL auto-injector 0.3 mg IM Q5-15M PRN (Reason: anaphylaxis) Qty: 2 RF: 0 No Action prednisone 20 mg tablet See Rx Instructions PO DAILY Qty: 19 RF: 0 hydroxyzine HCl 25 mg tablet 25 mg PO TID PRN (Reason: anxiety) Qty: 30 RF: 0 amoxicillin 500 mg capsule 1,000 mg PO TID Qty: 28 RF: 0 azithromycin 250 mg tablet See Rx Instructions PO .COMPLEX Qty: 6 RF: 0 albuterol sulfate 90 mcg/actuation HFA aerosol inhaler 2 puff INHALATION Q4-6H PRN (Reason: shortness of breath or wheezing) Qty: 8.5 RF: 2 hydrocodone-acetaminophen 5-325 mg tablet 1 tab PO Q4-6H PRN (Reason: pain) Qty: 10 RF: 0 ketorolac 10 mg tablet 10 mg PO Q6H PRN (Reason: pain) Qty: 14 RF: 0 diazepam [Valium] 2 mg tablet 2 mg PO BID-TID PRN (Reason: muscle spasm) Qty: 10 RF: 0 prednisone 10 mg tablet See Rx Instructions .ROUTE .COMPLEX Qty: 30 RF: 0
[2020-06-11 23:00] VITALS: BP 134/82; PULSE 72; RESP 31; O2SAT 96
[2020-06-11] MEDS: LORazepam 0.5 MG TABLET 1 MG PO (23:14)
== END 2020-06-11 23:27 | disposition home or self-care (01) ==
PROVIDERS: Emergency Provider Emergency Medicine
DX: T78.40XA Allergy, unspecified, initial encounter (principal); F41.9 Anxiety disorder, unspecified; R11.2 Nausea with vomiting, unspecified
CPT/HCPCS: 36415; 96365; 96372; 96375; 99284; J0171; J1200; J2405; J2930

== ENCOUNTER 2020-07-03 10:44 | Emergency (ER) | payer SELFPAY ==
[2020-07-03] VITALS (15 sets, daily range): BP systolic 115–164; BP diastolic 59–112; PULSE 47–74; RESP 13–30; TEMP 36.8; O2SAT 93–100; BMI 28.3
--- NOTE | 2020-07-03 10:48 | DI.RAD.S_ITS ---
PROCEDURE: XR CHEST 1V INDICATIONS: chest pain TECHNIQUE: One view of the chest was acquired. COMPARISON: [facility], CT, CT ANGIO CHEST PE PROTOCOL, 11/19/2019, 0:09. [facility], CR, XR CHEST 1V, 12/23/2019, 1:35. [facility], CR, XR CHEST 1V, 12/05/2019, 23:16. [facility], CR, XR CHEST 1V, 12/26/2019, 13:29. FINDINGS: Surgical changes and devices: None. Lungs and pleura: An incomplete inspiratory result is noted, causing a crowded appearance to the lung markings. Diffuse interstitial prominence is seen. No focal infiltrates are seen. No pneumothorax or significant pleural effusions are seen. Mediastinum: Mediastinal contours appear normal. Heart size is normal. Bones and chest wall: No suspicious bony lesions. Overlying soft tissues appear unremarkable. IMPRESSION: Interstitial prominence is seen throughout. The interstitial prominence is nonspecific. Differential diagnosis includes pulmonary edema and artifact from incomplete inspiratory result, however. Dictated by: Slueman Harris M.D. on 07/03/2020 at 10:07 Approved by: Suleman Harris M.D. on 07/03/2020 at 10:08
[2020-07-03 10:55] LABS: Add Manual Diff / Slide Review NO; Basophils Absolute Auto 0 /uL (0-100); Basophils Percent Auto 0.6 % (0-2); Eosinophils Absolute Auto 100 /uL (0-450); Hematocrit 44.8 % (41-53); Hemoglobin 15.5 g/dL (13.5-17.5); Lymphocytes Absolute Auto 2600 /uL (1100-4500); Lymphocytes Percent Auto 39.1 % (25-40); Mean Corpuscular HGB Conc 34.6 % (30-36); Mean Corpuscular Hemoglobin 30.9 PG (26-34); Mean Corpuscular Volume 89.3 fL (80-100); Monocytes Absolute Auto 400 /uL (0-900); Monocytes Percent Auto 5.4 % (3-14); Neutrophils Absolute Auto 3500 /uL (1500-7000); Neutrophils Percent Auto 52.9 % (50-75); Platelet Count 220 X10^3/uL (150-400); Red Blood Cell Count 5.01 X10^6/uL (4.5-5.9); Red Cell Distribution Width 12.1 % (11.6-14.8); White Blood Cell Count 6.7 X10^3/uL (4.5-11.0)
[2020-07-03 11:03] LABS: INR 0.9 (0.9-1.3); Prothrombin Time 10.7 SECONDS (10.1-12.7)
[2020-07-03 11:06] LABS: PTT Partial Thromboplastin Tim 32 SECONDS (26.4-36.2)
[2020-07-03 11:07] LABS: Alanine Aminotransferase 22 IU/L (<50); Albumin 4.4 g/dL (3.5-5.0); Albumin Globulin Ratio 1.5 (1.0-2.8); Alkaline Phosphatase 53 U/L (38-126); Aspartate Aminotransferase 24 IU/L (17-59); BUN Creatinine Ratio 15.2 (6-22); Bilirubin Total 0.4 mg/dL (0.2-1.3); Blood Urea Nitrogen 14 mg/dL (9-20); Calcium 9.5 mg/dL (8.4-10.2); Carbon Dioxide 24 mmol/L (22-32); Chloride 106 mmol/L (98-107); Creatine Kinase 105 U/L (55-170); Estimated Glomerular Filt Rate > 60.0 mL/min (>60); Glucose 94 mg/dL (70-100); Lipase 377 U/L (23-300); Potassium 4.2 mmol/L (3.4-5.1); Sodium 139 mmol/L (137-145); Total Protein 7.4 g/dL (6.3-8.2)
[2020-07-03] MEDS: KETOROLAC 60 MG/2 ML VIAL 15 MG IV (11:15)
[2020-07-03] MEDS: ASPIRIN 81 MG CHEW TAB 324 MG PO (11:16)
[2020-07-03 11:22] LABS: CKMB % Relative Index 0.8 % (1.5-5.0); HEMOLYSIS 30 (0-50); Troponin I < 0.012 ng/mL (0.01-0.034)
[2020-07-03] MEDS: NITROGLYCERIN 0.4 MG SL TAB SL (13:07)
--- NOTE | 2020-07-03 13:26 | ED_ITS ---
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 Does have angina that typically responds to nitro related to this. Today he was doing some work under is house had severe central chest pain described as an elephant sitting on his chest so bad that he had difficulty moving. He felt that his entire back locked up secondary to the pain he describes the pain as mid chest radiating through to the back mostly to the tip of the right shoulder blade. It is not going into the jaw nor associated with dyspnea or diaphoresis as his prior chest pain has been. Describes no recent fevers, cough, chills, chest pain, abdominal pain, nausea, vomiting, diarrhea, lower extremity edema nor any recent orthopedic injuries, falls trauma or other explanation for chest wall pain. He does note the pain is slightly worse with deep breathing and definitely reproducible when touching posterior right-sided chest wall. Related Data Previous Rx's Medication Instructions Recorded albuterol sulfate 2 puff INHALATION Q4-6H PRN #8.5 12/23/19 gram prednisone 20 mg tablet See Rx Instructions PO DAILY #19 01/01/20 tab amoxicillin 500 mg capsule 1,000 mg PO TID #28 cap 01/04/20 azithromycin 250 mg tablet See Rx Instructions PO .COMPLEX #6 01/04/20 tab hydroxyzine HCl 25 mg tablet 25 mg PO TID PRN #30 tab 01/04/20 diazepam [Valium] 2 mg PO BID-TID PRN #10 tab 03/30/20 hydrocodone-acetaminophen 1 tab PO Q4-6H PRN #10 tab 03/30/20 ketorolac 10 mg PO Q6H PRN #14 tab 03/30/20 prednisone See Rx Instructions .ROUTE 03/30/20 .COMPLEX #30 tab epinephrine [EpiPen] 0.3 mg IM Q5-15M PRN #2 each 06/11/20 prednisone 20 mg PO DAILY #5 tab 06/11/20 Allergies Allergy/AdvReac Type Severity Reaction Status Date / Time gabapentin Allergy ITCHING Verified 07/03/20 10:52 Iodinated Contrast Media Allergy Verified 07/03/20 10:52 prochlorperazine Allergy Anaphylaxis Verified 07/03/20 10:52 [From Compazine] metoclopramide [From Reglan] AdvReac Vomiting Verified 07/03/20 10:52 Review of Systems Review of Systems Narrative: Remainder of review of systems including constitutional, ENT, cardiovascular, respiratory, GI, , musculoskeletal, skin, neurologic and psychiatric systems reviewed and are unremarkable except as noted in HPI. Patient History Medical History Coronary artery disease (Acute) Surgical History H/O cardiac catheterization (Acute) Social History Smoking Status: Current every day smoker Smoking Status: Current every day smoker alcohol intake frequency: a few times a month Substance Use Type: marijuana Exam Narrative Exam Narrative: General: Healthy appearing, in moderate distress if asked to move, Able to give a complete and coherent history. Well-nourished well- developed HEENT: Moist mucous membranes, normal sclera with reactive pupils, Neck: No JVD, supple Respiratory: Lungs are clear to auscultation, no wheezing no rales no rhonchi. Full and symmetrical air movement Cardiac: Regular rate and rhythm no murmurs no bruits Abdomen: Soft nontender good bowel tones, no flank pain Skin: Warm and dry, no rashes Neurologic: Grossly neurologically intact with no obvious asymmetries or abnormalities Extremities: No trauma, well perfused Psych: Cooperative, appropriate insight and affect Initial Vital Signs Initial Vital Signs: Vital Signs Temperature 98.2 F 07/03/20 10:48 Pulse Rate 70 07/03/20 10:48 Respiratory Rate 18 07/03/20 10:48 Blood Pressure 164/85 H 07/03/20 10:48 Pulse Oximetry 100 07/03/20 10:48 Course Orders Ordered: ED Orders 07/03/20 10:40 Complete Blood Count AUTO DIFF Stat Comprehensive Metabolic Panel Stat Lipase Stat Partial Thromboplastin Time Stat Prothrombin Time INR Stat Troponin & CK Cardiac Panel Stat 07/03/20 10:48 XR chest 1V Stat 07/03/20 10:51 EKG-12 Lead Stat 07/03/20 13:48 Troponin I Stat Discontinued Medications Aspirin (Aspirin Chew) 324 mg PO NOW ONE Stop: 07/03/20 11:04 Last Admin: 07/03/20 11:16 Dose: 324 mg Documented by: JERICHO Ketorolac Tromethamine (Toradol) 15 mg IV NOW ONE Stop: 07/03/20 11:04 Last Admin: 07/03/20 11:15 Dose: 15 mg Documented by: JERICHO Nitroglycerin (Nitrostat) 0.4 mg SL [id number] PRN PRN Reason: Chest Pain Last Admin: 07/03/20 13:07 Dose: 0.4 mg Documented by: KAYCEE Ondansetron HCl (Zofran) 4 mg IV NOW ONE Stop: 07/03/20 13:26 Last Admin: 07/03/20 13:35 Dose: 4 mg Documented by: KAYCEE Oxycodone/Acetaminophen (Percocet 5/325) 1 tab PO NOW ONE Stop: 07/03/20 13:26 Last Admin: 07/03/20 13:35 Dose: 1 tab Documented by: KAYCEE Vital Signs Vital signs: Vital Signs - 8 hr 07/03/20 10:48 07/03/20 10:50 07/03/20 11:01 Temperature 98.2 F Pulse Rate 72 74 Respiratory Rate 18 18 Blood Pressure 164/85 H 164/85 H 159/112 H Pulse Oximetry 93 96 07/03/20 11:30 07/03/20 11:31 07/03/20 12:00 Temperature Pulse Rate 52 L 52 L 50 L Respiratory Rate 22 25 H 24 Blood Pressure 135/75 138/82 Pulse Oximetry 94 95 96 07/03/20 12:30 07/03/20 12:31 07/03/20 13:00 Temperature Pulse Rate 52 L 55 L 51 L Respiratory Rate 13 18 14 Blood Pressure 115/59 L Pulse Oximetry 97 97 97 07/03/20 13:01 07/03/20 13:07 07/03/20 13:16 Temperature Pulse Rate 52 L 57 L 56 L Respiratory Rate 20 30 H 17 Blood Pressure 143/67 H 144/79 H 127/73 Pulse Oximetry 97 97 97 07/03/20 13:30 07/03/20 14:00 07/03/20 14:30 Temperature Pulse Rate 47 L 48 L 49 L Respiratory Rate 13 24 15 Blood Pressure 128/75 119/68 121/68 Pulse Oximetry 96 97 96 MDM - Chest Pain Medical Records Data Attestation: I reviewed the patient's medical records. Lab Data Attestation: I reviewed the patient's lab results. Result diagrams: 07/03/20 10:40 07/03/20 10:40 Labs: Lab Results 07/03/20 07/03/20 07/03/20 Range/Units 10:40 10:40 10:40 WBC 6.7 (4.5-11.0) X10^3/uL RBC 5.01 (4.5-5.9) X10^6/uL Hgb 15.5 (13.5-17.5) g/dL Hct 44.8 (41-53) % MCV 89.3 (80-100) fL MCH 30.9 (26-34) PG MCHC 34.6 (30-36) % RDW 12.1 (11.6-14.8) % Plt Count 220 (150-400) X10^3/uL Neut % (Auto) 52.9 (50-75) % Lymph % (Auto) 39.1 (25-40) % [place] % (Auto) 5.4 (3-14) % Eos % (Auto) 2.0 (2-4) % Baso % (Auto) 0.6 (0-2) % Neut # (Auto) 3500 (3897-0536) /uL Lymph # (Auto) 2600 (0159-3101) /uL [place] # (Auto) 400 (0-900) /uL Eos # (Auto) 100 (0-450) /uL Baso # (Auto) 0 (0-100) /uL PT 10.7 (10.1-12.7) SECONDS INR 0.9 (0.9-1.3) APTT 32 (26.4-36.2) SECONDS Sodium 139 (137-145) mmol/L Potassium 4.2 (3.4-5.1) mmol/L Chloride 106 (98-107) mmol/L Carbon Dioxide 24 (22-32) mmol/L BUN 14 (9-20) mg/dL Creatinine 0.92 (0.66-1.25) mg/dL Estimated GFR > 60.0 (>60) mL/min BUN/Creatinine Ratio 15.2 (6-22) Glucose 94 (70-100) mg/dL Calcium 9.5 (8.4-10.2) mg/dL Total Bilirubin 0.4 (0.2-1.3) mg/dL AST 24 (17-59) IU/L ALT 22 (<50) IU/L Alkaline Phosphatase 53 (38-126) U/L Total Creatine Kinase 105 (55-170) U/L CK-MB (CK-2) 0.80 (<2.37) ng/mL CK-MB (CK-2) Rel Index 0.8 L (1.5-5.0) % Troponin I < 0.012 (0.01-0.034) ng/mL Total Protein 7.4 (6.3-8.2) g/dL Albumin 4.4 (3.5-5.0) g/dL Globulin 3.0 (1.7-4.1) g/dL Albumin/Globulin Ratio 1.5 (1.0-2.8) Lipase 377 H (23-300) U/L 07/03/20 Range/Units 13:48 WBC (4.5-11.0) X10^3/uL RBC (4.5-5.9) X10^6/uL Hgb (13.5-17.5) g/dL Hct (41-53) % MCV (80-100) fL MCH (26-34) PG MCHC (30-36) % RDW (11.6-14.8) % Plt Count (150-400) X10^3/uL Neut % (Auto) (50-75) % Lymph % (Auto) (25-40) % [place] % (Auto) (3-14) % Eos % (Auto) (2-4) % Baso % (Auto) (0-2) % Neut # (Auto) (0116-1175) /uL Lymph # (Auto) (9171-2956) /uL [place] # (Auto) (0-900) /uL Eos # (Auto) (0-450) /uL Baso # (Auto) (0-100) /uL PT (10.1-12.7) SECONDS INR (0.9-1.3) APTT (26.4-36.2) SECONDS Sodium (137-145) mmol/L Potassium (3.4-5.1) mmol/L Chloride (98-107) mmol/L Carbon Dioxide (22-32) mmol/L BUN (9-20) mg/dL Creatinine (0.66-1.25) mg/dL Estimated GFR (>60) mL/min BUN/Creatinine Ratio (6-22) Glucose (70-100) mg/dL Calcium (8.4-10.2) mg/dL Total Bilirubin (0.2-1.3) mg/dL AST (17-59) IU/L ALT (<50) IU/L Alkaline Phosphatase (38-126) U/L Total Creatine Kinase (55-170) U/L CK-MB (CK-2) (<2.37) ng/mL CK-MB (CK-2) Rel Index (1.5-5.0) % Troponin I < 0.012 (0.01-0.034) ng/mL Total Protein (6.3-8.2) g/dL Albumin (3.5-5.0) g/dL Globulin (1.7-4.1) g/dL Albumin/Globulin Ratio (1.0-2.8) Lipase (23-300) U/L Imaging Data Chest x-ray: Radiologist's Impression: FINDINGS: Surgical changes and devices: None. Lungs and pleura: An incomplete inspiratory result is noted, causing a crowded appearance to the lung markings. Diffuse interstitial prominence is seen. No focal infiltrates are seen. No pneumothorax or significant pleural effusions are seen. Mediastinum: Mediastinal contours appear normal. Heart size is normal. Bones and chest wall: No suspicious bony lesions. Overlying soft tissues appear unremarkable. IMPRESSION: Interstitial prominence is seen throughout. The interstitial prominence is nonspecific. Differential diagnosis includes pulmonary edema and artifact from incomplete inspiratory result, however. Dictated by: Suleman Harris M.D. on 07/03/2020 at 10:07 ECG Data Attestation: I personally reviewed and interpreted this ECG as follows: Interpretation: Rhythm at a rate of 60 Q-waves inferiorly with no acute ST T wave changes. Normal axis, normal intervals MDM Narrative Medical decision making narrative: 44-year-old gentleman with a history of congenitally small LAD and angina related to that. Today presents with central to right-sided chest pain while he had been working laying flat on his back with his hands up of his arms. Pain was not changed at all with nitro. Initial labs are unremarkable. Suspect that this is musculoskeletal in nature. Will repeat troponin at 2 hours. EKG does not suggest acute ischemic findings currently. Repeat troponin is unremarkable. No evidence of acute coronary syndrome, pneumothorax, fractures or infection. Safe for home discharge Discharge Plan Departure Patient Disposition: Home Clinical Impression: Atypical chest pain Discharge Date/Time: 07/03/20 15:00 Instructions: DI for Atypical Chest Pain Activity Restrictions/Additional Instructions: Thank you for coming in today Your workup for heart related chest pain is negative. This does not look like a heart attack or heart attack related syndrome. Your chest x-ray is unremarkable. I suspect this is a musculoskeletal pain and can be treated as such. Using 400 mg of ibuprofen (2 [id number] pills) and 1 Tylenol every 6 hours can be very helpful in controlling pain. If you feel that you are getting worse, have new or changing pain, it would be very appropriate to return I wish you the best Prescriptions: No Action prednisone 20 mg tablet See Rx Instructions PO DAILY Qty: 19 RF: 0 hydroxyzine HCl 25 mg tablet 25 mg PO TID PRN (Reason: anxiety) Qty: 30 RF: 0 amoxicillin 500 mg capsule 1,000 mg PO TID Qty: 28 RF: 0 azithromycin 250 mg tablet See Rx Instructions PO .COMPLEX Qty: 6 RF: 0 prednisone 20 mg tablet 20 mg PO DAILY Qty: 5 RF: 0 epinephrine [EpiPen] 0.3 mg/0.3 mL auto-injector 0.3 mg IM Q5-15M PRN (Reason: anaphylaxis) Qty: 2 RF: 0 albuterol sulfate 90 mcg/actuation HFA aerosol inhaler 2 puff INHALATION Q4-6H PRN (Reason: shortness of breath or wheezing) Qty: 8.5 RF: 2 hydrocodone-acetaminophen 5-325 mg tablet 1 tab PO Q4-6H PRN (Reason: pain) Qty: 10 RF: 0 ketorolac 10 mg tablet 10 mg PO Q6H PRN (Reason: pain) Qty: 14 RF: 0 diazepam [Valium] 2 mg tablet 2 mg PO BID-TID PRN (Reason: muscle spasm) Qty: 10 RF: 0 prednisone 10 mg tablet See Rx Instructions .ROUTE .COMPLEX Qty: 30 RF: 0
[2020-07-03] MEDS: OXYCODONE/ACETAMINOPHEN 5/325 TABLET 1 TAB PO (13:35)
[2020-07-03] MEDS: ONDANSETRON 4 MG/2 ML INJ IV (13:35)
[2020-07-03 14:18] LABS: Troponin I < 0.012 ng/mL (0.01-0.034)
== END 2020-07-03 15:00 | disposition home or self-care (01) ==
PROVIDERS: Emergency Provider Emergency Medicine
DX: R07.89 Other chest pain (principal)
CPT/HCPCS: 36415; 71045; 80053; 82550; 82553; 83690; 84484; 85025; 85610; 85730; 93005; 96374; 96375; 99284; J1885; J2405

== ENCOUNTER 2020-08-18 19:38 | Emergency (ER) | payer SELFPAY ==
[2020-08-18] VITALS (8 sets, daily range): BP systolic 116–170; BP diastolic 60–86; PULSE 67–93; RESP 19–25; TEMP 37; O2SAT 91–97
--- NOTE | 2020-08-18 19:59 | ED_ITS ---
HPI - Seizure General Chief Complaint: Seizure Stated Complaint: couple seizures this evening Time Seen by Provider: 08/18/20 19:44 Source: patient Mode of arrival: Ambulatory Limitations: no limitations History of Present Illness HPI Narrative: 44-year-old male who is new to the area states he has a history of seizures. Has been on seizure medication in the past. Has been followed by neurologist out in [facility]. Recently moved to this area. Has not established care with a neurologist her primary provider. States he was taken off all of his seizure medication approximately 1 month ago by his primary doctor. He states this is because he did not have a seizure in about a year and a half. He thinks that over the past 24 hours he has had at least 2 different seizures. He states there are periods of time where he does not remember and when he woke up from these episodes he was drooling and had sore muscles. He states that he does have a headache. Unsure whether not headache causes the seizures were their prodromal symptom. Came into the emergency department because of the increased seizure activity. Related Data Previous Rx's Medication Instructions Recorded albuterol sulfate 2 puff INHALATION Q4-6H PRN #8.5 12/23/19 gram prednisone 20 mg tablet See Rx Instructions PO DAILY #19 01/01/20 tab amoxicillin 500 mg capsule 1,000 mg PO TID #28 cap 01/04/20 azithromycin 250 mg tablet See Rx Instructions PO .COMPLEX #6 01/04/20 tab hydroxyzine HCl 25 mg tablet 25 mg PO TID PRN #30 tab 01/04/20 diazepam [Valium] 2 mg PO BID-TID PRN #10 tab 03/30/20 hydrocodone-acetaminophen 1 tab PO Q4-6H PRN #10 tab 03/30/20 ketorolac 10 mg PO Q6H PRN #14 tab 03/30/20 prednisone See Rx Instructions .ROUTE 03/30/20 .COMPLEX #30 tab epinephrine [EpiPen] 0.3 mg IM Q5-15M PRN #2 each 06/11/20 prednisone 20 mg PO DAILY #5 tab 06/11/20 Allergies Allergy/AdvReac Type Severity Reaction Status Date / Time gabapentin Allergy ITCHING Verified 07/03/20 10:52 Iodinated Contrast Media Allergy Verified 07/03/20 10:52 prochlorperazine Allergy Anaphylaxis Verified 07/03/20 10:52 [From Compazine] metoclopramide [From Reglan] AdvReac Vomiting Verified 07/03/20 10:52 Review of Systems Constitutional Constitutional: Denies chills, Denies fever(s), Denies frequent falls and Reports headache(s) ENT Ears, Nose, Mouth, and Throat: Reports headache(s) Cardiovascular Cardiovascular: Denies chest pain and Denies dyspnea Respiratory Respiratory: Denies cough and Denies dyspnea Gastrointestinal Gastrointestinal: Denies abdominal pain, Denies nausea and Denies vomiting Musculoskeletal Musculoskeletal: Reports myalgias Integumentary/Breasts Skin/Breast: Denies lesions and Denies rash Neurologic Neurologic: Reports behavioral changes, Denies frequent falls, Reports headache(s) and Reports seizure-like activity Psychiatric Psychiatric: Denies anxiety, Reports behavioral changes and Denies depression Hematologic/Lymphatic Hematologic/Lymphatic: Denies easy bleeding and Denies easy bruising Allergic/Immunologic Allergic/Immunologic: Denies urticaria Patient History Medical History Coronary artery disease (Acute) Seizures (Acute) Surgical History H/O cardiac catheterization (Acute) Social History Smoking Status: Current every day smoker Smoking Status: Current every day smoker alcohol intake frequency: a few times a month Substance Use Type: marijuana Exam Initial Vital Signs Initial Vital Signs: Vital Signs Temperature 98.6 F 08/18/20 19:43 Pulse Rate 77 08/18/20 19:43 Respiratory Rate 20 08/18/20 19:43 Blood Pressure 170/86 H 08/18/20 19:43 Pulse Oximetry 97 08/18/20 19:43 Const General: cooperative, healthy appearing and comfortable Limitations: mental status not altered [facility] Head: normal to inspection and normocephalic Ears: hearing grossly normal bilaterally Nose: external nose normal Eyes Pupils: PERRL Chest Chest: No crepitus Resp Effort & Inspection: normal respiratory effort Auscultation: clear to auscultation bilaterally Cardio Rate: regular rate Rhythm: regular rhythm GI Inspection: non-distended Palpation: soft Skin Lesions: no lesions Rashes: no rashes Neuro General: patient alert and patient awake Cranial Nerves: CN's II-XI intact bilaterally Cognition: normal cognition Speech: speech normal Gait: normal gait Motor: muscle tone normal throughout Sensory Exam: no sensory deficits noted Extrem General: normal to inspection and capillary refill normal Psych Appearance: grossly normal and well kempt Scores GCS [place] coma scale eye opening: Spontaneous [place] coma scale verbal response: Orientated [place] coma scale motor response: Obey commands [place] coma scale total score: 15 Course Orders Ordered: ED Orders 08/18/20 20:05 Complete Blood Count AUTO DIFF Stat Comprehensive Metabolic Panel Stat Ethanol (ETOH) Stat Lipase Stat Procalcitonin Stat 08/18/20 20:29 CT head/brain wo con Stat 08/18/20 20:40 COVID19 Stat Sodium Chloride (Normal Saline 0.9%) 1,000 mls @ 125 mls/hr IV CONT SJ Last Admin: 08/18/20 20:09 Dose: 125 mls/hr Documented by: GERALDO Discontinued Medications Acetaminophen (Tylenol) 975 mg PO NOW ONE Stop: 08/18/20 20:16 Last Admin: 08/18/20 20:19 Dose: 975 mg Documented by: GERALDO Levetiracetam 1,000 mg/ Sodium (Chloride) 110 mls @ 440 mls/hr IV NOW ONE Stop: 08/18/20 20:00 Last Infusion: 08/18/20 20:35 Dose: 0 mls/hr Documented by: Admin: 08/18/20 20:09 Dose: 440 mls/hr Documented by: GERALDO Levetiracetam 1,000 mg/ Sodium (Chloride) 110 mls @ 440 mls/hr IV NOW ONE Stop: 08/19/20 00:58 Last Admin: 08/19/20 01:31 Dose: 440 mls/hr Documented by: GERALDO Lorazepam (Ativan) 2 mg IM NOW ONE Stop: 08/18/20 20:00 Last Admin: 08/18/20 20:35 Dose: 2 mg Documented by: GERALDO Lorazepam (Ativan) 2 mg IV NOW ONE Stop: 08/18/20 20:28 Last Admin: 08/18/20 21:11 Dose: 2 mg Documented by: GERALDO Ondansetron HCl (Zofran) 4 mg IV NOW ONE Stop: 08/18/20 20:17 Last Admin: 08/18/20 20:19 Dose: 4 mg Documented by: GERALDO Vital Signs Vital signs: Vital Signs - 8 hr 08/18/20 19:43 08/18/20 21:11 08/18/20 21:30 Temperature 98.6 F Pulse Rate 77 93 H 86 Respiratory Rate 20 20 23 Blood Pressure 170/86 H 116/61 123/67 Pulse Oximetry 97 94 91 08/18/20 22:00 08/18/20 22:05 08/18/20 22:30 Temperature Pulse Rate 86 89 78 Respiratory Rate 25 H 24 23 Blood Pressure 124/60 Pulse Oximetry 96 08/18/20 23:00 08/18/20 23:30 08/19/20 00:00 Temperature Pulse Rate 76 67 74 Respiratory Rate 20 19 16 Blood Pressure Pulse Oximetry 95 94 08/19/20 00:30 08/19/20 01:00 Temperature Pulse Rate 70 74 Respiratory Rate 15 21 Blood Pressure 116/98 H Pulse Oximetry 94 MDM - Seizure Lab Data Attestation: I reviewed the patient's lab results. Result diagrams: 08/18/20 20:05 08/18/20 20:05 Labs: Lab Results 08/18/20 08/18/20 08/18/20 Range/Units 20:05 20:05 20:05 WBC 10.4 (4.5-11.0) X10^3/uL RBC 5.02 (4.5-5.9) X10^6/uL Hgb 15.4 (13.5-17.5) g/dL Hct 45.0 (41-53) % MCV 89.6 (80-100) fL MCH 30.6 (26-34) PG MCHC 34.1 (30-36) % RDW 12.1 (11.6-14.8) % Plt Count 219 (150-400) X10^3/uL Neut % (Auto) 43.5 L (50-75) % Lymph % (Auto) 47.9 H (25-40) % [place] % (Auto) 6.9 (3-14) % Eos % (Auto) 1.3 L (2-4) % Baso % (Auto) 0.4 (0-2) % Neut # (Auto) 4500 (7073-8224) /uL Lymph # (Auto) 5000 H (1200-9366) /uL [place] # (Auto) 700 (0-900) /uL Eos # (Auto) 100 (0-450) /uL Baso # (Auto) 0 (0-100) /uL Sodium 139 (137-145) mmol/L Potassium 3.5 (3.4-5.1) mmol/L Chloride 106 (98-107) mmol/L Carbon Dioxide 23 (22-32) mmol/L BUN 16 (9-20) mg/dL Creatinine 1.19 (0.66-1.25) mg/dL Estimated GFR > 60.0 (>60) mL/min BUN/Creatinine Ratio 13.4 (6-22) Glucose 99 (70-100) mg/dL Calcium 9.2 (8.4-10.2) mg/dL Total Bilirubin 0.8 (0.2-1.3) mg/dL AST 28 (17-59) IU/L ALT 24 (<50) IU/L Alkaline Phosphatase 53 (38-126) U/L Total Protein 7.5 (6.3-8.2) g/dL Albumin 4.6 (3.5-5.0) g/dL Globulin 2.9 (1.7-4.1) g/dL Albumin/Globulin Ratio 1.6 (1.0-2.8) Lipase 86 (23-300) U/L Procalcitonin < 0.50 (<0.5) ng/mL Ethyl Alcohol < 10 ( - 10) mg/dL COVID-19 PCR (Negative) 08/18/20 Range/Units 20:40 WBC (4.5-11.0) X10^3/uL RBC (4.5-5.9) X10^6/uL Hgb (13.5-17.5) g/dL Hct (41-53) % MCV (80-100) fL MCH (26-34) PG MCHC (30-36) % RDW (11.6-14.8) % Plt Count (150-400) X10^3/uL Neut % (Auto) (50-75) % Lymph % (Auto) (25-40) % [place] % (Auto) (3-14) % Eos % (Auto) (2-4) % Baso % (Auto) (0-2) % Neut # (Auto) (4914-9198) /uL Lymph # (Auto) (9957-4027) /uL [place] # (Auto) (0-900) /uL Eos # (Auto) (0-450) /uL Baso # (Auto) (0-100) /uL Sodium (137-145) mmol/L Potassium (3.4-5.1) mmol/L Chloride (98-107) mmol/L Carbon Dioxide (22-32) mmol/L BUN (9-20) mg/dL Creatinine (0.66-1.25) mg/dL Estimated GFR (>60) mL/min BUN/Creatinine Ratio (6-22) Glucose (70-100) mg/dL Calcium (8.4-10.2) mg/dL Total Bilirubin (0.2-1.3) mg/dL AST (17-59) IU/L ALT (<50) IU/L Alkaline Phosphatase (38-126) U/L Total Protein (6.3-8.2) g/dL Albumin (3.5-5.0) g/dL Globulin (1.7-4.1) g/dL Albumin/Globulin Ratio (1.0-2.8) Lipase (23-300) U/L Procalcitonin (<0.5) ng/mL Ethyl Alcohol ( - 10) mg/dL COVID-19 PCR Negative (Negative) Imaging Data CT scan - head: Radiologist's Impression: [address] [address] [address] Scan Report Signed Patient: Angelito Joshi BMR#: [id number] : 1975Acct:[id number] Age/Sex: 44 / MDate of Service: 08/18/20 Loc: ED Accession Number: [id number] Procedure: CT head/brain wo con Ordering Provider: Martin Castelan D.O. PROCEDURE: CT HEAD/BRAIN WO CON INDICATIONS: Status epilepticus TECHNIQUE: Noncontrast 4.5 mm thick angled axial sections acquired from the foramen magnum to the vertex, with coronal and sagittal reformats. For radiation dose reduction, the following was used: automated exposure control, adjustment of mA and/or kV according to patient size. COMPARISON: Located Within [facility], CT, CT HEAD/BRAIN WO CON, 12/05/2019, 22:22. FINDINGS: Image quality: Excellent. CSF spaces: Basal cisterns are patent. No extra-axial fluid collections. Ventricles are normal in size and shape. Brain: No midline shift. No intracranial masses or hemorrhage. Fletcher-white matter interface is normal. Skull and face: Calvarium and visualized facial bones are intact, without suspicious lesions. Sinuses: Visualized sinuses and mastoids are clear. IMPRESSION: No CT evidence of acute process. Dictated by: Mita Elaine M.D. on 08/18/2020 at 21:42 Approved by: Mita Elaine M.D. on 08/18/2020 at 21:43 [facility] Narrative Medical decision making narrative: Shortly after arrival patient did have what appeared to be a generalized tonic-clonic seizure. He did have decerebrate like posturing during that time with extension of his elbow and wrist bilaterally and also his knees and ankles. Patient did not become hypoxic. He was unconscious during this.. The activity lasted less than 30 seconds and self resolved. There was a clear break in his symptoms without a return to normal when he had another episode very similar to the 1st. Again lasting only 30 seconds or less. He was given 2 mg of Ativan IM. After this episode he did seem to be somewhat confused for several minutes but then return to normal cognition. Had 2 other distinct episodes very similar to this however each of these episode resulted in him returning back to baseline cognition. After the 1st episode he received 1 g of Keppra. His head CT is unremarkable. His labs are unremarkable to include alcohol. He received a total of 6 mg of Ativan. I discussed the case with [facility] who stated that patient most likely would need to be de jesus sferred to place who had EEG capability. Initially contacted [facility] in [place] who asked that I talk with Neurology at [facility]. I then discussed the case with Dr. Pollack on-call neurologist who recommended that the patient received a 2nd g of Keppra and also agreed that patient needed admitted to the hospital for further evaluation. I then discussed the case with hospitalist that [facility] who accepts the patient in transfer. Patient has not had seizure activity in several hours. Patient is currently stable for transport. Critical Care Time Critical Care Time Critical Care Time: Yes Total Critical Care Time: 35 Attestation: The high probability of a clinically significant, sudden or life threatening deterioration of the neurologic system(s) required my full and direct attention, intervention and personal management. The aggregate critical care time was [35] minutes. This time is in addition to time spent performing reported procedures but includes the following: [x] Data Review and interpretation [x] Patient assessment and monitoring of vital signs [x] Documentation [x] Medication orders and management Discharge Plan Departure Patient Disposition: [facility] Clinical Impression: Seizure-like activity Prescriptions: No Action prednisone 20 mg tablet See Rx Instructions PO DAILY Qty: 19 RF: 0 hydroxyzine HCl 25 mg tablet 25 mg PO TID PRN (Reason: anxiety) Qty: 30 RF: 0 amoxicillin 500 mg capsule 1,000 mg PO TID Qty: 28 RF: 0 azithromycin 250 mg tablet See Rx Instructions PO .COMPLEX Qty: 6 RF: 0 prednisone 20 mg tablet 20 mg PO DAILY Qty: 5 RF: 0 epinephrine [EpiPen] 0.3 mg/0.3 mL auto-injector 0.3 mg IM Q5-15M PRN (Reason: anaphylaxis) Qty: 2 RF: 0 albuterol sulfate 90 mcg/actuation HFA aerosol inhaler 2 puff INHALATION Q4-6H PRN (Reason: shortness of breath or wheezing) Qty: 8.5 RF: 2 hydrocodone-acetaminophen 5-325 mg tablet 1 tab PO Q4-6H PRN (Reason: pain) Qty: 10 RF: 0 ketorolac 10 mg tablet 10 mg PO Q6H PRN (Reason: pain) Qty: 14 RF: 0 diazepam [Valium] 2 mg tablet 2 mg PO BID-TID PRN (Reason: muscle spasm) Qty: 10 RF: 0 prednisone 10 mg tablet See Rx Instructions .ROUTE .COMPLEX Qty: 30 RF: 0
[2020-08-18] MEDS: LORazepam 2 MG/ML INJ (20:00)
[2020-08-18] MEDS: SODIUM CHLORIDE 0.9% 1,000 ML 125 ML IV (20:09)
[2020-08-18] MEDS: levETIRAcetam 1,000 MG in SODIUM CHLORIDE 0.9% 100 ML 440 ML IV (20:09)
[2020-08-18] MEDS: ACETAMINOPHEN 325 MG TABLET 975 MG PO (20:19)
[2020-08-18] MEDS: ONDANSETRON 4 MG/2 ML INJ IV (20:19)
[2020-08-18 20:23] LABS: Add Manual Diff / Slide Review NO; Basophils Absolute Auto 0 /uL (0-100); Basophils Percent Auto 0.4 % (0-2); Eosinophils Absolute Auto 100 /uL (0-450); Eosinophils Percent Auto 1.3 % (2-4); Hemoglobin 15.4 g/dL (13.5-17.5); Lymphocytes Absolute Auto 5000 /uL (1100-4500); Lymphocytes Percent Auto 47.9 % (25-40); Mean Corpuscular HGB Conc 34.1 % (30-36); Mean Corpuscular Hemoglobin 30.6 PG (26-34); Mean Corpuscular Volume 89.6 fL (80-100); Monocytes Absolute Auto 700 /uL (0-900); Monocytes Percent Auto 6.9 % (3-14); Neutrophils Absolute Auto 4500 /uL (1500-7000); Neutrophils Percent Auto 43.5 % (50-75); Platelet Count 219 X10^3/uL (150-400); Red Blood Cell Count 5.02 X10^6/uL (4.5-5.9); Red Cell Distribution Width 12.1 % (11.6-14.8); White Blood Cell Count 10.4 X10^3/uL (4.5-11.0)
--- NOTE | 2020-08-18 20:29 | DI.CT.S_ITS ---
PROCEDURE: CT HEAD/BRAIN WO CON INDICATIONS: Status epilepticus TECHNIQUE: Noncontrast 4.5 mm thick angled axial sections acquired from the foramen magnum to the vertex, with coronal and sagittal reformats. For radiation dose reduction, the following was used: automated exposure control, adjustment of mA and/or kV according to patient size. COMPARISON: [facility], CT, CT HEAD/BRAIN WO CON, 12/05/2019, 22:22. FINDINGS: Image quality: Excellent. CSF spaces: Basal cisterns are patent. No extra-axial fluid collections. Ventricles are normal in size and shape. Brain: No midline shift. No intracranial masses or hemorrhage. Fletcher-white matter interface is normal. Skull and face: Calvarium and visualized facial bones are intact, without suspicious lesions. Sinuses: Visualized sinuses and mastoids are clear. IMPRESSION: No CT evidence of acute process. Dictated by: Mita Elaine M.D. on 08/18/2020 at 21:42 Approved by: Mita Elaine M.D. on 08/18/2020 at 21:43
[2020-08-18] MEDS: LORazepam 2 MG/ML INJ IM (20:35)
[2020-08-18 20:36] LABS: Alanine Aminotransferase 24 IU/L (<50); Albumin 4.6 g/dL (3.5-5.0); Albumin Globulin Ratio 1.6 (1.0-2.8); Alkaline Phosphatase 53 U/L (38-126); Aspartate Aminotransferase 28 IU/L (17-59); BUN Creatinine Ratio 13.4 (6-22); Bilirubin Total 0.8 mg/dL (0.2-1.3); Blood Urea Nitrogen 16 mg/dL (9-20); Calcium 9.2 mg/dL (8.4-10.2); Carbon Dioxide 23 mmol/L (22-32); Chloride 106 mmol/L (98-107); Estimated Glomerular Filt Rate > 60.0 mL/min (>60); Ethanol (ETOH) < 10 mg/dL; Globulin 2.9 g/dL (1.7-4.1); Glucose 99 mg/dL (70-100); HEMOLYSIS < 15 (0-50); Lipase 86 U/L (23-300); Potassium 3.5 mmol/L (3.4-5.1); Sodium 139 mmol/L (137-145); Total Protein 7.5 g/dL (6.3-8.2)
[2020-08-18 20:59] LABS: Procalcitonin < 0.50 ng/mL (<0.5)
[2020-08-18 21:02] LABS: COVID19 -Nasal RAPID Negative (Negative)
[2020-08-18] MEDS: LORazepam 2 MG/ML INJ IV (21:11)
--- NOTE | 2020-08-18 21:11 | PC.NURSE ---
Pt called me to bedside to report that he feels a seizure coming on. R hand noted with involuntary tremors. 2mg ativan given IV per verbal order from Dr Castelan.
[2020-08-19] VITALS (7 sets, daily range): BP systolic 115–116; BP diastolic 69–98; PULSE 62–76; RESP 15–21; TEMP 36.2; O2SAT 94–96
[2020-08-19] MEDS: levETIRAcetam 1,000 MG in SODIUM CHLORIDE 0.9% 100 ML 440 ML IV (01:31)
[2020-08-19] MEDS: IBUPROFEN 400 MG TABLET PO (02:48)
== END 2020-08-19 03:00 | disposition short-term general hospital (02) ==
PROVIDERS: Emergency Provider Emergency Medicine
DX: R56.9 Unspecified convulsions (principal); R51.9 Headache, unspecified
CPT/HCPCS: 36415; 70450; 80053; 80320; 83690; 84145; 85025; 87635; 96361; 96365; 96366; 96372; 96375; 99284; 99291; 99292; J1953; J2060; J2405

== ENCOUNTER 2020-10-03 00:42 | Emergency (ER) | payer SELFPAY ==
[2020-10-03] VITALS (9 sets, daily range): BP systolic 95–160; BP diastolic 52–90; PULSE 77–104; RESP 16–21; TEMP 37.4; O2SAT 93–99; BMI 28.0
--- NOTE | 2020-10-03 00:54 | DI.RAD.S_ITS ---
PROCEDURE: XR CHEST 1V INDICATIONS: cough, chest pain, chills, fever, ? covid TECHNIQUE: One view of the chest was acquired. COMPARISON: [facility], CR, XR CHEST 1V, 07/03/2020, 10:55. FINDINGS: Surgical changes and devices: None. Lungs and pleura: Subtle opacity in right lower lung field is seen likely represent scattered atelectasis. No definite focal infiltrate. Left lung is clear. No pleural effusions or pneumothorax. Mediastinum: Mediastinal contours appear normal. Heart size is normal. Bones and chest wall: No suspicious bony lesions. Overlying soft tissues appear unremarkable. IMPRESSION: Suggestion of right basilar atelectasis. No definite focal infiltrate, pleural effusion or pneumothorax. Dictated by: Chuck Cleaning M.D. on 10/03/2020 at 8:16 Approved by: Chuck Cleaning M.D. on 10/03/2020 at 8:19
--- NOTE | 2020-10-03 00:55 | ED_ITS ---
HPI - SOB/Dyspnea General Stated Complaint: body aches cough sob fatigue Time Seen by Provider: 10/03/20 00:47 Source: family Mode of arrival: Ambulatory Limitations: no limitations History of Present Illness HPI Narrative: This is a 44-year-old male comes emergency department with complaint of 3 days of fever and chills, He felt hot the previous day and has been taking tylenol cold and flu since then with no additional fever symptoms. shortness of breath, cough which has been nonproductive. Sort of back chest discomfort that is generalized. Patient has had some nausea but no vomiting. Denies any GI or urinary symptoms. No swelling in extremities. Patient does have a cardiac history he has had angioplasty x3, he states he has a very small LAD and they were unable to stent it so each time they do angioplasty. He is on aspirin, a statin as well as metoprolol. He has had all his medications which he normally takes in the evening tonight. He also has a history of seizure disorder and states he takes Topamax. He does state that he typically gets aspirin once yearly. He states he is quite active and runs regularly. He smokes about a quarter pack daily, denies alcohol or illicit. His primary care is Dr. Flavia Almeida in [place] and his cardiology is in [place]. Related Data Previous Rx's Medication Instructions Recorded albuterol sulfate 2 puff INHALATION Q4-6H PRN #8.5 12/23/19 gram prednisone 20 mg tablet See Rx Instructions PO DAILY #19 01/01/20 tab amoxicillin 500 mg capsule 1,000 mg PO TID #28 cap 01/04/20 azithromycin 250 mg tablet See Rx Instructions PO .COMPLEX #6 01/04/20 tab hydroxyzine HCl 25 mg tablet 25 mg PO TID PRN #30 tab 01/04/20 diazepam [Valium] 2 mg PO BID-TID PRN #10 tab 03/30/20 hydrocodone-acetaminophen 1 tab PO Q4-6H PRN #10 tab 03/30/20 ketorolac 10 mg PO Q6H PRN #14 tab 03/30/20 prednisone See Rx Instructions .ROUTE 03/30/20 .COMPLEX #30 tab epinephrine [EpiPen] 0.3 mg IM Q5-15M PRN #2 each 06/11/20 prednisone 20 mg PO DAILY #5 tab 06/11/20 albuterol sulfate 2 inh INHALATION Q4H PRN #1 ea 10/03/20 prednisone 20 mg PO DAILY #3 tab 10/03/20 Allergies Allergy/AdvReac Type Severity Reaction Status Date / Time gabapentin Allergy ITCHING Verified 07/03/20 10:52 Iodinated Contrast Media Allergy Verified 07/03/20 10:52 prochlorperazine Allergy Anaphylaxis Verified 07/03/20 10:52 [From Compazine] metoclopramide [From Reglan] AdvReac Vomiting Verified 07/03/20 10:52 Review of Systems Review of Systems ROS Unobtainable: All systems reviewed & are unremarkable except as noted in HPI and below Patient History Medical History (Updated 10/03/20 @ 02:01 by Micki Castañeda DO) Coronary artery disease Seizures Surgical History H/O cardiac catheterization Social History Smoking Status: Current every day smoker Smoking Status: Current every day smoker alcohol intake frequency: a few times a month Substance Use Type: marijuana Exam Narrative Exam Narrative: GEN: well nourished, well appearing male, alert and oriented x 3, patient appears to be in mild distress. HEENT: Atraumatic, pupils are equal round reactive to light, extraocular movements are intact, nares are clear. HEART: Heart tachycardic but regular rate and rhythm. No swelling in lower extremities. No murmur noted. LUNGS:Lungs clear to auscultation, no wheezes, rales, crackles, chest moves symmetrically, patient does have a dry cough throughout evaluation. ABD:bowel sounds normal, soft, non-tender, no guarding, rebound, rigidity, no masses noted, no hepatosplenomegaly :No CVA tenderness MSCL: Non-tender, no muscle atrophy, muscles strength 5/5 upper and lower extremities, full range of motion, normal gait NEURO:CN 2-12 intact, sensation normal SKIN: no rash, no erythema or skin changes. Initial Vital Signs Initial Vital Signs: Vital Signs Temperature 99.4 F 10/03/20 00:50 Pulse Rate 103 H 10/03/20 00:50 Respiratory Rate 18 10/03/20 00:50 Blood Pressure 160/90 H 10/03/20 00:50 Pulse Oximetry 99 10/03/20 00:50 Scores HEART Score Heart Score history: Slightly Suspicious Heart Score EKG: Normal (q-wave present, seen on prior EKG no prior changes. ) Heart Score Age: 45-64 years old Heart Score risk factors: > 3 risk factors or hx of atherosclerotic disease Heart Score troponin: < or = to normal limit Heart Score Total: 3 PERC Score Age greater than or equal to 50 years: No Heart rate greater than or equal to 100 bpm: Yes Room Air O2 Sat less than 95%: No Unilateral leg swelling: No Recent trauma or surgery: No Hemoptysis: No Prior PE or DVT: No Hormone Use: No Total PERC Score: 1 Course Orders Ordered: ED Orders 10/03/20 00:50 COVID19 Stat 10/03/20 00:54 XR chest 1V Stat EKG-12 Lead Stat 10/03/20 01:00 C-Reactive Protein Quant Stat Complete Blood Count AUTO DIFF Stat Comprehensive Metabolic Panel Stat D Dimer Stat Ferritin Stat Lactate (Lactic Acid) Stat Lactate Dehydrogenase Stat NT-proBNP (BNP-Adult 18+) Stat Procalcitonin Stat Troponin & CK Cardiac Panel Stat 10/03/20 01:15 Blood Culture Stat Discontinued Medications Albuterol (Albuterol Hfa Mdi 60 Puff/8 Gm Inhaler) 2 puff INH NOW ONE Stop: 10/03/20 02:11 Last Admin: 10/03/20 02:21 Dose: 2 puff Documented by: Diphenhydramine HCl (Diphenhydramine 25 Mg Tablet) 50 mg PO NOW ONE Stop: 10/03/20 02:43 Last Admin: 10/03/20 03:01 Dose: 50 mg Documented by: Sodium Chloride (Normal Saline 0.9%) 1,000 mls @ 1,000 mls/hr IV BOLUS ONE Stop: 10/03/20 02:36 Last Infusion: 10/03/20 03:01 Dose: Infused Documented by: Methylprednisolone (Methylprednisolone 125 Mg/2 Ml Vial) 80 mg IV NOW ONE Stop: 10/03/20 02:02 Last Admin: 10/03/20 02:21 Dose: 80 mg Documented by: Reevaluation(s) Reevaluation #1: Patient and I discussed his findings chest x-ray is negative, COVID swab is negative. Leukocytosis but no other infectious findings patient may have a viral infection causing exacerbation of COPD as he does have chronic tobacco use. Plan to give a albuterol inhaler and steroids and re-evaluate while awaiting repeat lactate. Time: 02:15 Reevaluation #2: recheck, patient is feeling much better. He was feeling flushed and anxious after the steroid so was given some Benadryl which he found helpful. He states that typically happens with Solu-Medrol when he receives it and that form. Patient states his breathing has improved vitals have improved, patient's lactate has improved as well. Discussed return precautions and patient expresses his understanding. Time: 03:50 Vital Signs Vital signs: Vital Signs - 8 hr 10/03/20 00:50 10/03/20 01:02 10/03/20 01:30 Temperature 99.4 F Pulse Rate 103 H 96 H 93 H Respiratory Rate 18 20 Blood Pressure 160/90 H Pulse Oximetry 99 97 94 10/03/20 01:43 10/03/20 02:00 10/03/20 02:21 Temperature Pulse Rate 104 H 88 88 Respiratory Rate 18 19 16 Blood Pressure 157/71 H 111/52 L Pulse Oximetry 96 94 96 10/03/20 02:30 10/03/20 03:00 10/03/20 03:30 Temperature Pulse Rate 86 79 77 Respiratory Rate 21 21 19 Blood Pressure 118/64 95/54 L 122/67 Pulse Oximetry 94 94 93 MDM - SOB/Dyspnea Lab Data Attestation: I reviewed the patient's lab results. Result diagrams: 10/03/20 01:00 10/03/20 01:00 Labs: Lab Results 10/03/20 10/03/20 10/03/20 Range/Units 00:50 01:00 01:00 WBC 12.4 H (4.5-11.0) X10^3/uL RBC 5.07 (4.5-5.9) X10^6/uL Hgb 15.5 (13.5-17.5) g/dL Hct 44.8 (41-53) % MCV 88.3 (80-100) fL MCH 30.6 (26-34) PG MCHC 34.6 (30-36) % RDW 12.5 (11.6-14.8) % Plt Count 229 (150-400) X10^3/uL Neut % (Auto) 68.5 (50-75) % Lymph % (Auto) 24.2 L (25-40) % [place] % (Auto) 5.8 (3-14) % Eos % (Auto) 1.0 L (2-4) % Baso % (Auto) 0.5 (0-2) % Neut # (Auto) 8500 H (6907-3919) /uL Lymph # (Auto) 3000 (8916-5697) /uL [place] # (Auto) 700 (0-900) /uL Eos # (Auto) 100 (0-450) /uL Baso # (Auto) 100 (0-100) /uL D-Dimer (<230) ng/mL Sodium 140 (137-145) mmol/L Potassium 3.9 (3.4-5.1) mmol/L Chloride 106 (98-107) mmol/L Carbon Dioxide 26 (22-32) mmol/L BUN 16 (9-20) mg/dL Creatinine 0.89 (0.66-1.25) mg/dL Estimated GFR > 60.0 (>60) mL/min BUN/Creatinine Ratio 18.0 (6-22) Glucose 121 H (70-100) mg/dL Lactate (0.7-2.1) mmol/L Calcium 9.2 (8.4-10.2) mg/dL Ferritin 45 (18-464) ng/mL Total Bilirubin 0.5 (0.2-1.3) mg/dL AST 31 (17-59) IU/L ALT 31 (<50) IU/L Alkaline Phosphatase 54 (38-126) U/L Lactate Dehydrogenase 358 (313-618) U/L Total Creatine Kinase 148 (55-170) U/L CK-MB (CK-2) 0.66 (<2.37) ng/mL CK-MB (CK-2) Rel Index 0.4 L (1.5-5.0) % Troponin I < 0.012 (0.01-0.034) ng/mL C-Reactive Protein 0.8 (<1.0) mg/dL NT-Pro-B Natriuret Pep 28 (<125) pg/mL Total Protein 7.2 (6.3-8.2) g/dL Albumin 4.2 (3.5-5.0) g/dL Globulin 3.0 (1.7-4.1) g/dL Albumin/Globulin Ratio 1.4 (1.0-2.8) Procalcitonin (<0.5) ng/mL SARS-CoV-2 (PCR) Negative (Negative) 10/03/20 10/03/20 10/03/20 Range/Units 01:00 01:00 01:00 WBC (4.5-11.0) X10^3/uL RBC (4.5-5.9) X10^6/uL Hgb (13.5-17.5) g/dL Hct (41-53) % MCV (80-100) fL MCH (26-34) PG MCHC (30-36) % RDW (11.6-14.8) % Plt Count (150-400) X10^3/uL Neut % (Auto) (50-75) % Lymph % (Auto) (25-40) % [place] % (Auto) (3-14) % Eos % (Auto) (2-4) % Baso % (Auto) (0-2) % Neut # (Auto) (6137-4669) /uL Lymph # (Auto) (4437-3749) /uL [place] # (Auto) (0-900) /uL Eos # (Auto) (0-450) /uL Baso # (Auto) (0-100) /uL D-Dimer < 200 (<230) ng/mL Sodium (137-145) mmol/L Potassium (3.4-5.1) mmol/L Chloride (98-107) mmol/L Carbon Dioxide (22-32) mmol/L BUN (9-20) mg/dL Creatinine (0.66-1.25) mg/dL Estimated GFR (>60) mL/min BUN/Creatinine Ratio (6-22) Glucose (70-100) mg/dL Lactate 2.3 H (0.7-2.1) mmol/L Calcium (8.4-10.2) mg/dL Ferritin (18-464) ng/mL Total Bilirubin (0.2-1.3) mg/dL AST (17-59) IU/L ALT (<50) IU/L Alkaline Phosphatase (38-126) U/L Lactate Dehydrogenase (313-618) U/L Total Creatine Kinase (55-170) U/L CK-MB (CK-2) (<2.37) ng/mL CK-MB (CK-2) Rel Index (1.5-5.0) % Troponin I (0.01-0.034) ng/mL C-Reactive Protein (<1.0) mg/dL NT-Pro-B Natriuret Pep (<125) pg/mL Total Protein (6.3-8.2) g/dL Albumin (3.5-5.0) g/dL Globulin (1.7-4.1) g/dL Albumin/Globulin Ratio (1.0-2.8) Procalcitonin < 0.05 (<0.5) ng/mL SARS-CoV-2 (PCR) (Negative) 10/03/20 Range/Units 03:10 WBC (4.5-11.0) X10^3/uL RBC (4.5-5.9) X10^6/uL Hgb (13.5-17.5) g/dL Hct (41-53) % MCV (80-100) fL MCH (26-34) PG MCHC (30-36) % RDW (11.6-14.8) % Plt Count (150-400) X10^3/uL Neut % (Auto) (50-75) % Lymph % (Auto) (25-40) % [place] % (Auto) (3-14) % Eos % (Auto) (2-4) % Baso % (Auto) (0-2) % Neut # (Auto) (1852-7937) /uL Lymph # (Auto) (2058-2897) /uL [place] # (Auto) (0-900) /uL Eos # (Auto) (0-450) /uL Baso # (Auto) (0-100) /uL D-Dimer (<230) ng/mL Sodium (137-145) mmol/L Potassium (3.4-5.1) mmol/L Chloride (98-107) mmol/L Carbon Dioxide (22-32) mmol/L BUN (9-20) mg/dL Creatinine (0.66-1.25) mg/dL Estimated GFR (>60) mL/min BUN/Creatinine Ratio (6-22) Glucose (70-100) mg/dL Lactate 1.4 (0.7-2.1) mmol/L Calcium (8.4-10.2) mg/dL Ferritin (18-464) ng/mL Total Bilirubin (0.2-1.3) mg/dL AST (17-59) IU/L ALT (<50) IU/L Alkaline Phosphatase (38-126) U/L Lactate Dehydrogenase (313-618) U/L Total Creatine Kinase (55-170) U/L CK-MB (CK-2) (<2.37) ng/mL CK-MB (CK-2) Rel Index (1.5-5.0) % Troponin I (0.01-0.034) ng/mL C-Reactive Protein (<1.0) mg/dL NT-Pro-B Natriuret Pep (<125) pg/mL Total Protein (6.3-8.2) g/dL Albumin (3.5-5.0) g/dL Globulin (1.7-4.1) g/dL Albumin/Globulin Ratio (1.0-2.8) Procalcitonin (<0.5) ng/mL SARS-CoV-2 (PCR) (Negative) Imaging Data Chest x-ray: Attestation: I personally reviewed and interpreted this imaging study as follows: Radiologist's Impression: Minimal scattered atelectatic change, no focal infiltrate or pleural effusion. ECG Data Attestation: I personally reviewed and interpreted this ECG as follows: Prior ECG tracings: available for review Interpretation: Sinus rhythm rate of 95, P are 156, QRS is 82 and QTC of 454. Q- wave in 2 3 AVF. No elevation or depression appreciated. Patient does have S1, Q3 but no T3. Patient has prior EKG from 07/03/2020 which appears similar. MDM Narrative Medical decision making narrative: Patient comes in with complaint of cough, fever chills and chest discomfort. Patient has leukocytosis, low lymphocytes with normal neutrophils. Patient's chest x-ray is negative, patient's COVID swab is negative. Patient's chemistries show negative troponin after several days of symptoms, C reactive protein, lactate dehydrogenase, procalcitonin with normal renal function and electrolytes. D-dimer is negative with PERC score of 1. Patient has history of tob abuse and at his lowest use of 1/4ppd. Given solu-medrol and albuterol puffs and on recheck patient is feeling improved. He did feel very slightly flushed and anxious after Solu-Medrol so was given Benadryl p.o. although does not appear to be an allergic reaction. Repeat lactate has improved vital signs have also improved. Discharge Plan Departure Patient Disposition: Home Clinical Impression: Bronchitis Instructions: Acute Bronchitis Activity Restrictions/Additional Instructions: Follow up in the next several days for recheck. Call for an appointment with your physician. Take steroids once daily until gone. Use albuterol 1-2 puffs every 4 hours as needed for wheezing or shortness of breath. Prescription to [facility]. Return to the ER for worsening fevers, chest pain shortness of breath, lightheadedness or passing out, persistent vomiting, abdominal pain, black or bloody stools, swelling in her extremities or other new or concerning symptoms. Prescriptions: New albuterol sulfate 90 mcg/actuation aerosol powdr breath activated 2 inh inhalation Q4H PRN (Reason: shortness of breath) Qty: 1 RF: 0 prednisone 20 mg tablet 20 mg PO DAILY Qty: 3 RF: 0 No Action prednisone 20 mg tablet See Rx Instructions PO DAILY Qty: 19 RF: 0 hydroxyzine HCl 25 mg tablet 25 mg PO TID PRN (Reason: anxiety) Qty: 30 RF: 0 amoxicillin 500 mg capsule 1,000 mg PO TID Qty: 28 RF: 0 azithromycin 250 mg tablet See Rx Instructions PO .COMPLEX Qty: 6 RF: 0 prednisone 20 mg tablet 20 mg PO DAILY Qty: 5 RF: 0 epinephrine [EpiPen] 0.3 mg/0.3 mL auto-injector 0.3 mg IM Q5-15M PRN (Reason: anaphylaxis) Qty: 2 RF: 0 albuterol sulfate 90 mcg/actuation HFA aerosol inhaler 2 puff INHALATION Q4-6H PRN (Reason: shortness of breath or wheezing) Qty: 8.5 RF: 2 hydrocodone-acetaminophen 5-325 mg tablet 1 tab PO Q4-6H PRN (Reason: pain) Qty: 10 RF: 0 ketorolac 10 mg tablet 10 mg PO Q6H PRN (Reason: pain) Qty: 14 RF: 0 diazepam [Valium] 2 mg tablet 2 mg PO BID-TID PRN (Reason: muscle spasm) Qty: 10 RF: 0 prednisone 10 mg tablet See Rx Instructions .ROUTE .COMPLEX Qty: 30 RF: 0
[2020-10-03 01:11] LABS: Add Manual Diff / Slide Review NO; Basophils Absolute Auto 100 /uL (0-100); Basophils Percent Auto 0.5 % (0-2); Eosinophils Absolute Auto 100 /uL (0-450); Hematocrit 44.8 % (41-53); Hemoglobin 15.5 g/dL (13.5-17.5); Lymphocytes Absolute Auto 3000 /uL (1100-4500); Lymphocytes Percent Auto 24.2 % (25-40); Mean Corpuscular HGB Conc 34.6 % (30-36); Mean Corpuscular Hemoglobin 30.6 PG (26-34); Mean Corpuscular Volume 88.3 fL (80-100); Monocytes Absolute Auto 700 /uL (0-900); Monocytes Percent Auto 5.8 % (3-14); Neutrophils Absolute Auto 8500 /uL (1500-7000); Neutrophils Percent Auto 68.5 % (50-75); Platelet Count 229 X10^3/uL (150-400); Red Blood Cell Count 5.07 X10^6/uL (4.5-5.9); Red Cell Distribution Width 12.5 % (11.6-14.8); White Blood Cell Count 12.4 X10^3/uL (4.5-11.0)
[2020-10-03 01:12] LABS: COVID19 -Nasal RAPID Negative (Negative)
[2020-10-03 01:22] LABS: Lactate (Lactic Acid) 2.3 mmol/L (0.7-2.1)
[2020-10-03 01:24] LABS: Alanine Aminotransferase 31 IU/L (<50); Albumin 4.2 g/dL (3.5-5.0); Albumin Globulin Ratio 1.4 (1.0-2.8); Alkaline Phosphatase 54 U/L (38-126); Aspartate Aminotransferase 31 IU/L (17-59); Bilirubin Total 0.5 mg/dL (0.2-1.3); Blood Urea Nitrogen 16 mg/dL (9-20); C-Reactive Protein Quant 0.8 mg/dL (<1.0); Calcium 9.2 mg/dL (8.4-10.2); Carbon Dioxide 26 mmol/L (22-32); Chloride 106 mmol/L (98-107); Creatine Kinase 148 U/L (55-170); Estimated Glomerular Filt Rate > 60.0 mL/min (>60); Glucose 121 mg/dL (70-100); HEMOLYSIS < 15 (0-50); Lactate Dehydrogenase 358 U/L (313-618); Potassium 3.9 mmol/L (3.4-5.1); Sodium 140 mmol/L (137-145); Total Protein 7.2 g/dL (6.3-8.2)
[2020-10-03 01:33] LABS: NT-proBNP (BNP-Adult 18+) 28 pg/mL (<125); Troponin I < 0.012 ng/mL (0.01-0.034)
[2020-10-03 01:37] LABS: Procalcitonin < 0.05 ng/mL (<0.5)
[2020-10-03 01:40] LABS: CKMB % Relative Index 0.4 % (1.5-5.0); Creatine Kinase MB 0.66 ng/mL (<2.37)
[2020-10-03] MEDS: SODIUM CHLORIDE 0.9% 1,000 ML 1000 ML IV (01:41)
[2020-10-03 01:56] LABS: Ferritin 45 ng/mL (18-464)
[2020-10-03 02:10] LABS: D Dimer < 200 ng/mL (<230)
[2020-10-03] MEDS: methylPREDNISolone 125 MG/2 ML VIAL 80 MG IV (02:21)
[2020-10-03] MEDS: ALBUTEROL HFA MDI 60 PUFF/8 GM INHALER INH (02:21)
[2020-10-03] MEDS: diphenhydrAMINE 25 MG TABLET 50 MG PO (03:01)
[2020-10-03 03:03] LABS: Reflexed Lactate in 2 Hours Y
[2020-10-03 03:36] LABS: Lactate 2HR (Lactic Acid Rflx) 1.4 mmol/L (0.7-2.1)
== END 2020-10-03 03:57 | disposition home or self-care (01) ==
PROVIDERS: Emergency Provider Emergency Medicine
DX: J40 Bronchitis, not specified as acute or chronic (principal); R50.9 Fever, unspecified; D72.829 Elevated white blood cell count, unspecified; Z20.828 Contact with and (suspected) exposure to other viral communicable diseases; Z79.82 Long term (current) use of aspirin; Z95.5 Presence of coronary angioplasty implant and graft; G40.909 Epilepsy, unspecified, not intractable, without status epilepticus; I25.10 Atherosclerotic heart disease of native coronary artery without angina pectoris
CPT/HCPCS: 36415; 71045; 80053; 82550; 82553; 82728; 83605; 83615; 83880; 84145; 84484; 85025; 85379; 86140; 87040; 87635; 93005; 94640; 96361; 96374; 99284; A9270; J2930

== ENCOUNTER 2020-12-24 10:18 | Emergency (ER) | payer OTHER, MEDICAID, SELFPAY ==
[2020-12-24 10:25] VITALS: BP 123/76; PULSE 83; RESP 16; TEMP 36.7; O2SAT 95; BMI 27.6
--- NOTE | 2020-12-24 10:25 | DI.RAD.S_ITS ---
PROCEDURE: XR FINGER LT MIN 2V INDICATIONS: crush injury TECHNIQUE: AP hand, 2 views of the 1st finger(s) acquired. COMPARISON: None. FINDINGS: Bones: No fractures or dislocations. No suspicious bony lesions. Soft tissues: No suspicious soft tissue calcifications. IMPRESSION: No visualized acute fracture or dislocation. However, if clinical concern and/or pain persist, short interval imaging followup in 7-10 days is recommended, as occult injury cannot be definitively excluded. Dictated by: Mendy Cassidy M.D. on 12/24/2020 at 10:47 Approved by: Mendy Cassidy M.D. on 12/24/2020 at 10:49
--- NOTE | 2020-12-24 10:51 | ED.UPPEXIN ---
HPI - Extremity Injury (Upper) General Chief Complaint: Extremity Injury, Upper Stated Complaint: fractured left thumb Time Seen by Provider: 12/24/20 10:43 Source: patient Mode of arrival: Ambulatory Limitations: no limitations History of Present Illness HPI narrative: Patient is a 45-year-old male who presents with left thumb injury. He was moving a heater, burning in down some stairs he missed when the stairs his some hyper extended he has a very superficial laceration noted over the MCP he is quite tender over that area. No flexion at that MCP joint he denies any numbness or tingling. No other injury. MD complaint: injury to: left and finger (Thumb) Onset (ago): minute(s) Related Data Previous Rx's Medication Instructions Recorded albuterol sulfate 2 puff INHALATION Q4-6H PRN #8.5 12/23/19 gram prednisone 20 mg tablet See Rx Instructions PO DAILY #19 01/01/20 tab amoxicillin 500 mg capsule 1,000 mg PO TID #28 cap 01/04/20 azithromycin 250 mg tablet See Rx Instructions PO .COMPLEX #6 01/04/20 tab hydroxyzine HCl 25 mg tablet 25 mg PO TID PRN #30 tab 01/04/20 diazepam [Valium] 2 mg PO BID-TID PRN #10 tab 03/30/20 hydrocodone-acetaminophen 1 tab PO Q4-6H PRN #10 tab 03/30/20 ketorolac 10 mg PO Q6H PRN #14 tab 03/30/20 prednisone See Rx Instructions .ROUTE 03/30/20 .COMPLEX #30 tab epinephrine [EpiPen] 0.3 mg IM Q5-15M PRN #2 each 06/11/20 prednisone 20 mg PO DAILY #5 tab 06/11/20 albuterol sulfate 2 inh INHALATION Q4H PRN #1 ea 10/03/20 prednisone 20 mg PO DAILY #3 tab 10/03/20 Allergies Allergy/AdvReac Type Severity Reaction Status Date / Time gabapentin Allergy ITCHING Verified 07/03/20 10:52 Iodinated Contrast Media Allergy Verified 07/03/20 10:52 prochlorperazine Allergy Anaphylaxis Verified 07/03/20 10:52 [From Compazine] metoclopramide [From Reglan] AdvReac Vomiting Verified 07/03/20 10:52 Review of Systems Review of Systems Narrative: GENERAL: Denies chills,fever HEENT: Denies throat pain RESPIRATORY: Denies dyspnea, cough, wheezing CARDIOVASCULAR: Denies chest pain, palpitations GASTROINTESTINAL: Denies nausea, vomiting MUSCULOSKELETAL: See HPI SKIN: No rash, no laceration, no pruritus NEUROLOGIC: Denies weakness, dizziness, headache, numbness 8 point review of systems is negative except for those stated above and HPI Patient History Medical History (Updated 12/24/20 @ 11:53 by Neda Anaya DO) Coronary artery disease Seizures Surgical History H/O cardiac catheterization Social History Smoking Status: Current every day smoker Smoking Status: Current every day smoker alcohol intake frequency: a few times a month Substance Use Type: marijuana Exam Initial Vital Signs Initial Vital Signs: Vital Signs Temperature 98.0 F 12/24/20 10:25 Pulse Rate 83 12/24/20 10:25 Respiratory Rate 16 12/24/20 10:25 Blood Pressure 123/76 12/24/20 10:25 Pulse Oximetry 95 12/24/20 10:25 GENERAL: Well-appearing, well-nourished and in no acute distress. CARDIOVASCULAR: peripheral pulses in tact, cap refill <2 sec RESPIRATORY: No respiratory distress, speaks in full sentences without difficulty EXTREMITIES: Normal range of motion, no clubbing or edema. Neurovascularly intact Left thumb tender over scaphoid able to push up with some resistance but is quite tender unable to flex the MCP able to flex at the PIP NEUROLOGICAL: Cranial nerves II through XII grossly intact. Normal gait and speech. SKIN: Superficial laceration over MCP her left thumb good skin approximation bleeding controlled no tendon or nerve identified unable to see them Course Orders Ordered: ED Orders 12/24/20 10:25 XR finger LT min 2V Stat 12/24/20 10:57 XR wrist LT min 3V Stat Vital Signs Vital signs: Vital Signs - 8 hr 12/24/20 10:25 Temperature 98.0 F Pulse Rate 83 Respiratory Rate 16 Blood Pressure 123/76 Pulse Oximetry 95 MDM - Extremity Injury (Upper) Imaging Data Extremity x-ray #1: Radiologist's Impression: PROCEDURE: XR FINGER LT MIN 2V INDICATIONS: crush injury TECHNIQUE: AP hand, 2 views of the 1st finger(s) acquired. COMPARISON: None. FINDINGS: Bones: No fractures or dislocations. No suspicious bony lesions. Soft tissues: No suspicious soft tissue calcifications. IMPRESSION: No visualized acute fracture or dislocation. However, if clinical concern and/or pain persist, short interval imaging followup in 7-10 days is recommended, as occult injury cannot be definitively excluded. Dictated by: Mendy Cassidy M.D. on 12/24/2020 at 10:47 Extremity x-ray #2: Radiologist's Impression: PROCEDURE: XR WRIST LT MIN 3V INDICATIONS: scaphoid pain TECHNIQUE: 4 views of the wrist were acquired. COMPARISON: None. FINDINGS: Bones: No fractures or dislocations. No suspicious bony lesions. Scaphoid view: Scaphoid intact Soft tissues: No suspicious soft tissue calcifications. IMPRESSION: Negative four view wrist films with no plain film evidence of scaphoid fracture. If clinical suspicion and/or symptoms persist, further assessment with repeat plain films, or advanced imaging (e.g., CT, MRI, or bone scan) may be helpful for further assessment. Dictated by: Mark Hensley M.D. on 12/24/2020 at 11:34 [facility] Narrative Medical decision making narrative: Patient left prior to his discharge instruction. I called and left patient message. Discharge Plan Departure Patient Disposition: Home Clinical Impression: Strain of left thumb Instructions: DI for Finger Sprain Activity Restrictions/Additional Instructions: *You have been diagnosed with left thumb strain *What to do: At this time x-ray is negative no fracture however distal possible that he strained but or partially tore a ligament. Please keep your hand in the splint at all times. In follow-up with PCP and or possibly orthopedic. *Continue to take medications as directed Ibuprofen 800 mg every 8 hours if needed for [id number] pain *Follow up with your primary care provider in 2-3 days *Return to ER if you should have increasing pain redness pus swelling or any new, worsening or concerning symptoms Prescriptions: No Action prednisone 20 mg tablet See Rx Instructions PO DAILY Qty: 19 RF: 0 hydroxyzine HCl 25 mg tablet 25 mg PO TID PRN (Reason: anxiety) Qty: 30 RF: 0 amoxicillin 500 mg capsule 1,000 mg PO TID Qty: 28 RF: 0 azithromycin 250 mg tablet See Rx Instructions PO .COMPLEX Qty: 6 RF: 0 prednisone 20 mg tablet 20 mg PO DAILY Qty: 5 RF: 0 epinephrine [EpiPen] 0.3 mg/0.3 mL auto-injector 0.3 mg IM Q5-15M PRN (Reason: anaphylaxis) Qty: 2 RF: 0 albuterol sulfate 90 mcg/actuation HFA aerosol inhaler 2 puff INHALATION Q4-6H PRN (Reason: shortness of breath or wheezing) Qty: 8.5 RF: 2 hydrocodone-acetaminophen 5-325 mg tablet 1 tab PO Q4-6H PRN (Reason: pain) Qty: 10 RF: 0 ketorolac 10 mg tablet 10 mg PO Q6H PRN (Reason: pain) Qty: 14 RF: 0 diazepam [Valium] 2 mg tablet 2 mg PO BID-TID PRN (Reason: muscle spasm) Qty: 10 RF: 0 prednisone 10 mg tablet See Rx Instructions .ROUTE .COMPLEX Qty: 30 RF: 0 albuterol sulfate 90 mcg/actuation aerosol powdr breath activated 2 inh inhalation Q4H PRN (Reason: shortness of breath) Qty: 1 RF: 0 prednisone 20 mg tablet 20 mg PO DAILY Qty: 3 RF: 0
--- NOTE | 2020-12-24 10:57 | DI.RAD.S_ITS ---
PROCEDURE: XR WRIST LT MIN 3V INDICATIONS: scaphoid pain TECHNIQUE: 4 views of the wrist were acquired. COMPARISON: None. FINDINGS: Bones: No fractures or dislocations. No suspicious bony lesions. Scaphoid view: Scaphoid intact Soft tissues: No suspicious soft tissue calcifications. IMPRESSION: Negative four view wrist films with no plain film evidence of scaphoid fracture. If clinical suspicion and/or symptoms persist, further assessment with repeat plain films, or advanced imaging (e.g., CT, MRI, or bone scan) may be helpful for further assessment. Dictated by: Mark Hensley M.D. on 12/24/2020 at 11:34 Approved by: Mark Hensley M.D. on 12/24/2020 at 11:35
--- NOTE | 2020-12-24 11:42 | PC.NURSE ---
Small laceration on top of L thumb knuckle cleaned with CHG and band aid applied.
== END 2020-12-24 12:01 | disposition home or self-care (01) ==
PROVIDERS: Emergency Provider Emergency Medicine
DX: S63.602A Unspecified sprain of left thumb, initial encounter (principal)
CPT/HCPCS: 73110; 73140; 99282; 99283

== ENCOUNTER → 2020-12-31 14:13 | Outpatient (CLI) | payer OTHER, MEDICAID, SELFPAY ==
[2020-12-31 15:30] LABS: Add Manual Diff / Slide Review NO; Basophils Absolute Auto 0 /uL (0-100); Basophils Percent Auto 0.6 % (0-2); Eosinophils Absolute Auto 200 /uL (0-450); Eosinophils Percent Auto 3.6 % (2-4); Hematocrit 41.5 % (41-53); Hemoglobin 14.4 g/dL (13.5-17.5); Lymphocytes Absolute Auto 2500 /uL (1100-4500); Lymphocytes Percent Auto 39.3 % (25-40); Mean Corpuscular HGB Conc 34.7 % (30-36); Mean Corpuscular Hemoglobin 30.2 PG (26-34); Mean Corpuscular Volume 87.2 fL (80-100); Monocytes Absolute Auto 400 /uL (0-900); Monocytes Percent Auto 6.1 % (3-14); Neutrophils Absolute Auto 3200 /uL (1500-7000); Neutrophils Percent Auto 50.4 % (50-75); Platelet Count 228 X10^3/uL (150-400); Red Blood Cell Count 4.76 X10^6/uL (4.5-5.9); Red Cell Distribution Width 11.9 % (11.6-14.8); White Blood Cell Count 6.3 X10^3/uL (4.5-11.0)
[2020-12-31 15:51] LABS: BUN Creatinine Ratio 13.8 (6-22); Blood Urea Nitrogen 15 mg/dL (9-20); Calcium 9.8 mg/dL (8.4-10.2); Carbon Dioxide 27 mmol/L (22-32); Chloride 106 mmol/L (98-107); Estimated Glomerular Filt Rate > 60.0 mL/min (>60); Glucose 92 mg/dL (70-100); HEMOLYSIS < 15 (0-50); Potassium 3.9 mmol/L (3.4-5.1); Sodium 139 mmol/L (137-145)
[2020-12-31 16:20] LABS: Lithium < 0.2 mmol/L (0.6-1.2)
[2020-12-31 16:36] LABS: Vitamin B12 556 pg/mL (239-931)
[2020-12-31 16:54] LABS: TSH w/ Reflex to FT4 2.38 uIU/mL (0.47-4.68)
== END ==
PROVIDERS: PCP Student in an Organized Health Care Education/Training Program; Referring Provider Student in an Organized Health Care Education/Training Program; Visit Provider Student in an Organized Health Care Education/Training Program
DX: F31.9 Bipolar disorder, unspecified (principal); Z79.899 Other long term (current) drug therapy; R53.83 Other fatigue
CPT/HCPCS: 36415; 80048; 80178; 82607; 84443; 85025

== ENCOUNTER 2021-01-02 03:07 | Emergency (ER) | payer OTHER, MEDICAID, SELFPAY ==
[2021-01-02 03:14] VITALS: PULSE 73; O2SAT 98
[2021-01-02 03:15] VITALS: BP 125/82; PULSE 71; O2SAT 98
[2021-01-02 03:19] VITALS: TEMP 36.9; BMI 28.8
[2021-01-02 03:30] VITALS: PULSE 74; O2SAT 96
--- NOTE | 2021-01-02 03:32 | ED.PSYCH ---
HPI - Psych General Chief Complaint: Psychiatric Symptoms Stated Complaint: Lilia Time Seen by Provider: 01/02/21 03:08 Source: patient Mode of arrival: Ambulatory Limitations: no limitations History of Present Illness HPI Narrative: 45M former smoker and former drinker with bipolar disorder presents with the chief complaint of insomnia and anxiety. He denies suicidal or homicidal ideation. He states he has a history of being admitted at [facility] a few months ago and has largely been stable since then. He was recently in his PCP office and had his lisinopril 0 stopped due to the potential concern for lithium toxicity. His levels had been recently measured but he is unclear what they were. Patient states that he has had increasing agitation, trouble with sleep and now increasing anxiety over the past 3 days. He denies any other alterations in his medications. He denies any runny nose, sore throat or cough. He denies fever or chills. He denies any chest pain or shortness of breath. He admits to a generalized vague headache that has been gradually worsening over the past few days. He denies any blurred vision or trouble with speech. He denies any numbness, weakness or tingling. MD complaint: other Onset (ago): day(s) Duration: constant History of same: Yes Relieving factors: none Exacerbating factors: none Associated psychiatric symptoms: none Associated symptoms: headache Treatments prior to arrival: none Related Data Home Medications Medication Instructions Recorded Confirmed amlodipine 10 mg tablet 10 mg PO DAILY 12/31/20 12/31/20 aripiprazole 10 mg tablet 10 mg PO DAILY 12/31/20 12/31/20 aspirin 81 mg tablet,delayed 81 mg PO DAILY 12/31/20 12/31/20 release lithium carbonate 300 mg tablet 300 mg PO BID 12/31/20 12/31/20 ondansetron HCl 4 mg tablet 4 mg PO DAILY PRN tab 12/31/20 12/31/20 prazosin 2 mg capsule 1 mg PO BEDTIME cap 12/31/20 12/31/20 quetiapine 200 mg tablet 200 mg PO DAILY 12/31/20 12/31/20 sumatriptan succinate 50 mg tablet See Rx Instructions PO .COMPLEX 12/31/20 12/31/20 tramadol 50 mg tablet 100 mg PO DAILY tab 12/31/20 12/31/20 Previous Rx's Medication Instructions Recorded albuterol sulfate 2 puff INHALATION Q4-6H PRN #8.5 12/23/19 gram epinephrine [EpiPen] 0.3 mg IM Q5-15M PRN #2 each 06/11/20 fluticasone 100 mcg-salmeterol 50 1 inh INHALATION BID #60 ea 12/31/20 mcg/dose blistr powdr for inhalation hydroxyzine HCl 50 mg tablet 50 mg PO BEDTIME PRN #90 tab 12/31/20 venlafaxine 150 mg 150 mg PO QAM #90 cap 12/31/20 capsule,extended release 24 hr Allergies Allergy/AdvReac Type Severity Reaction Status Date / Time gabapentin Allergy ITCHING Verified 12/31/20 13:11 Iodinated Contrast Media Allergy Verified 12/31/20 13:11 prochlorperazine Allergy Anaphylaxis Verified 12/31/20 13:11 [From Compazine] metoclopramide [From Reglan] AdvReac Vomiting Verified 12/31/20 13:11 Review of Systems Constitutional Constitutional: Denies chills, Denies fatigue, Denies fever(s), Denies frequent falls, Denies lethargy and Denies weakness Eyes Eyes: Denies change in vision, Denies eye discharge, Denies irritation and Denies loss of vision ENT Ears, Nose, Mouth, and Throat: Denies change in voice, Denies dizziness, Denies neck pain, Denies sore throat and Denies throat swelling Cardiovascular Cardiovascular: Denies chest pain, Denies irregular heart rhythm, Denies lightheadedness, Denies palpitations, Denies dyspnea, Denies dyspnea on exertion and Denies orthopnea Respiratory Respiratory: Denies cough, Denies dyspnea, Denies dyspnea on exertion and Denies wheezing Gastrointestinal Gastrointestinal: Denies abdominal pain, Denies change in bowel habits, Denies diarrhea, Denies nausea and Denies vomiting Musculoskeletal Musculoskeletal: Denies neck pain and Denies numbness Integumentary/Breasts Skin/Breast: Denies pruritus, Denies erythema, Denies rash and Denies wounds Neurologic Neurologic: Denies behavioral changes, Denies confusion, Denies dizziness, Denies frequent falls, Denies loss of vision, Denies numbness and Denies weakness Psychiatric Psychiatric: Denies anxiety, Denies behavioral changes, Denies confusion, Denies depression, Denies homicidal ideation and Denies suicidal ideation Endocrine Endocrine: Denies fatigue, Denies flushing and Denies palpitations Hematologic/Lymphatic Hematologic/Lymphatic: Denies easy bruising Allergic/Immunologic Allergic/Immunologic: Denies urticaria, Denies throat swelling and Denies wheezing Patient History Medical History (Updated 01/02/21 @ 04:38 by Richi Sims DO) Coronary artery disease Seizures Surgical History H/O cardiac catheterization Social History Smoking Status: Current every day smoker Smoking Status: Current every day smoker alcohol intake frequency: a few times a month Substance Use Type: marijuana Exam Narrative Exam Narrative: GENERAL: [45] year old patient appears stated age. Well-nourished, well-developed patient, in mild distress. Anxious, pressured speech, mildly tremulous HEAD: Atraumatic. Normocephalic. EYES: Pupils equal round and reactive. Extraocular motions intact. No scleral icterus. No injection or drainage. ENT: Nose without bleeding, purulent drainage. Throat without erythema, tonsillar hypertrophy or exudate. Airway patent. NECK: Trachea midline. Non tender CARDIOVASCULAR: Regular rate and rhythm without murmurs, gallops, or rubs. RESPIRATORY: Clear to auscultation. Breath sounds equal bilaterally. No wheezes, rales, or rhonchi. GASTROINTESTINAL: Abdomen soft, non-tender, nondistended. EXTREMITIES: No edema or joint tenderness. BACK: Nontender without deformity or crepitance. No flank tenderness. NEURO: AOx3. SKIN: No rash or erythema of visible areas Initial Vital Signs Initial Vital Signs: Vital Signs Pulse Rate 73 01/02/21 03:14 Pulse Oximetry 98 01/02/21 03:14 Course Orders Ordered: ED Orders 01/02/21 03:26 EKG-12 Lead Stat 01/02/21 03:36 Acetaminophen Stat Complete Blood Count AUTO DIFF Stat Comprehensive Metabolic Panel Stat Ethanol (ETOH) Stat [place] Stat Magnesium Stat Salicylate Stat TSH w/ Reflex to FT4 Stat 01/02/21 03:40 Urine Drug Screen, Rapid Stat Discontinued Medications Sodium Chloride (Normal Saline 0.9%) 1,000 mls @ 1,000 mls/hr IV BOLUS ONE Stop: 01/02/21 04:24 Last Admin: 01/02/21 03:39 Dose: 1,000 mls/hr Documented by: FRACISCO Lorazepam (Lorazepam 2 Mg/Ml Inj) 1 mg IV NOW ONE Stop: 01/02/21 03:26 Last Admin: 01/02/21 03:39 Dose: 1 mg Documented by: FRACISCO Lorazepam (Lorazepam 0.5 Mg Tablet) 1 mg PO NOW ONE Stop: 01/02/21 04:38 Vital Signs Vital signs: Vital Signs - 8 hr 01/02/21 03:14 01/02/21 03:15 01/02/21 03:19 Temperature 98.5 F Pulse Rate 73 71 Blood Pressure 125/82 Pulse Oximetry 98 98 01/02/21 03:30 Temperature Pulse Rate 74 Blood Pressure Pulse Oximetry 96 MDM - Psych Lab Data Result diagrams: 01/02/21 03:36 01/02/21 03:36 Labs: Lab Results 01/02/21 01/02/21 01/02/21 Range/Units 03:36 03:36 03:36 WBC 6.0 (4.5-11.0) X10^3/uL RBC 4.59 (4.5-5.9) X10^6/uL Hgb 13.9 (13.5-17.5) g/dL Hct 40.1 L (41-53) % MCV 87.3 (80-100) fL MCH 30.3 (26-34) PG MCHC 34.7 (30-36) % RDW 11.8 (11.6-14.8) % Plt Count 212 (150-400) X10^3/uL Neut % (Auto) 48.2 L (50-75) % Lymph % (Auto) 41.0 H (25-40) % [place] % (Auto) 5.9 (3-14) % Eos % (Auto) 4.3 H (2-4) % Baso % (Auto) 0.6 (0-2) % Neut # (Auto) 2900 (6504-5437) /uL Lymph # (Auto) 2500 (5330-3376) /uL [place] # (Auto) 400 (0-900) /uL Eos # (Auto) 300 (0-450) /uL Baso # (Auto) 0 (0-100) /uL Sodium 138 (137-145) mmol/L Potassium 3.6 (3.4-5.1) mmol/L Chloride 108 H (98-107) mmol/L Carbon Dioxide 23 (22-32) mmol/L BUN 18 (9-20) mg/dL Creatinine 0.99 (0.66-1.25) mg/dL Estimated GFR > 60.0 (>60) mL/min BUN/Creatinine Ratio 18.2 (6-22) Glucose 105 H (70-100) mg/dL Calcium 9.4 (8.4-10.2) mg/dL Magnesium 2.0 (1.6-2.3) mg/dL Total Bilirubin 0.2 (0.2-1.3) mg/dL AST 20 (17-59) IU/L ALT 18 (<50) IU/L Alkaline Phosphatase 51 (38-126) U/L Total Protein 6.7 (6.3-8.2) g/dL Albumin 4.1 (3.5-5.0) g/dL Globulin 2.6 (1.7-4.1) g/dL Albumin/Globulin Ratio 1.6 (1.0-2.8) Salicylates (<20) mg/dL U Opiates 300ng/mL cut (Negative) Ur Oxycodone Screen (Negative) Urine Methadone Screen (Negative) Acetaminophen (10-30) ug/mL Ur Barbiturates Screen (Negative) U Tricyclic Antidepress (Negative) Ur Phencyclidine Scrn (Negative) Ur Amphetamines Screen (Negative) U Methamphetamines Scrn (Negative) Ur MDMA Scrn (Ecstasy) (Negative) U Benzodiazepines Scrn (Negative) [place] 0.3 L (0.6-1.2) mmol/L Urine Cocaine Screen (Negative) U Marijuana (THC) Screen (Negative) Ethyl Alcohol ( - 10) mg/dL 01/02/21 01/02/21 Range/Units 03:36 03:40 WBC (4.5-11.0) X10^3/uL RBC (4.5-5.9) X10^6/uL Hgb (13.5-17.5) g/dL Hct (41-53) % MCV (80-100) fL MCH (26-34) PG MCHC (30-36) % RDW (11.6-14.8) % Plt Count (150-400) X10^3/uL Neut % (Auto) (50-75) % Lymph % (Auto) (25-40) % [place] % (Auto) (3-14) % Eos % (Auto) (2-4) % Baso % (Auto) (0-2) % Neut # (Auto) (0516-8369) /uL Lymph # (Auto) (9017-4023) /uL [place] # (Auto) (0-900) /uL Eos # (Auto) (0-450) /uL Baso # (Auto) (0-100) /uL Sodium (137-145) mmol/L Potassium (3.4-5.1) mmol/L Chloride (98-107) mmol/L Carbon Dioxide (22-32) mmol/L BUN (9-20) mg/dL Creatinine (0.66-1.25) mg/dL Estimated GFR (>60) mL/min BUN/Creatinine Ratio (6-22) Glucose (70-100) mg/dL Calcium (8.4-10.2) mg/dL Magnesium (1.6-2.3) mg/dL Total Bilirubin (0.2-1.3) mg/dL AST (17-59) IU/L ALT (<50) IU/L Alkaline Phosphatase (38-126) U/L Total Protein (6.3-8.2) g/dL Albumin (3.5-5.0) g/dL Globulin (1.7-4.1) g/dL Albumin/Globulin Ratio (1.0-2.8) Salicylates < 1.0 (<20) mg/dL U Opiates 300ng/mL cut Negative (Negative) Ur Oxycodone Screen Negative (Negative) Urine Methadone Screen Negative (Negative) Acetaminophen < 10 L (10-30) ug/mL Ur Barbiturates Screen Negative (Negative) U Tricyclic Antidepress Positive H (Negative) Ur Phencyclidine Scrn Negative (Negative) Ur Amphetamines Screen Negative (Negative) U Methamphetamines Scrn Negative (Negative) Ur MDMA Scrn (Ecstasy) Negative (Negative) U Benzodiazepines Scrn Negative (Negative) [place] (0.6-1.2) mmol/L Urine Cocaine Screen Negative (Negative) U Marijuana (THC) Screen Positive H (Negative) Ethyl Alcohol < 10 ( - 10) mg/dL Urine Dip Bedside Urine Glucose Negative Bedside Urine Bilirubin - Negative Bedside Urine Ketone - Negative Urine Specific [place] 1.025 Bedside Urine Occult Blood - Negative Bedside Urine pH 7.0 Bedside Urine Protein - Negative Bedside Urine Urobilinogen - Negative Bedside Urine Nitrite - Negative Bedside Urine Leukocytes - Negative Esterase MDM Narrative Medical decision making narrative: Patient has very reassuring exam and labs. He was most concerned about the potential of lithium toxicity, but is in fact subtherapeutic which raises the question of whether not the administration of lisinopril was potentiate Ng the lithium and since he is no longer taking lisinopril his levels have dropped. Otherwise the patient is doing quite well and quite relieved at this news. He denies suicidal or homicidal ideation, has good support and is able to contract for safety. He understands return precautions and has had questions answered to his apparent satisfaction Discharge Plan Departure Patient Disposition: Home Clinical Impression: Anxiety, Abnormal lithium level in blood Insomnia Qualifiers: Insomnia type: unspecified Qualified Code(s): G47.00 - Insomnia, unspecified Instructions: DI for Bipolar Disorder Activity Restrictions/Additional Instructions: *You have been diagnosed with [insomnia, anxiety and low lithium level.] *What to do: *Take medications as directed *Follow up with your primary care provider in 2-3 days, call for an appointment. Let them know you were seen in the Emergency Department and that we ask that you be seen in follow up. As we discussed it is most appropriate for your primary care provider to potentially alter your lithium dosing and or add an anti exactly medicine such as Xanax. *Return to ER if you should have any new, worsening or concerning symptoms Prescriptions: No Action amlodipine 10 mg tablet 10 mg PO DAILY RF: 0 aspirin 81 mg tablet,delayed release (DR/EC) 81 mg PO DAILY RF: 0 aripiprazole [Abilify] 10 mg tablet 10 mg PO DAILY RF: 0 lithium carbonate 300 mg tablet 300 mg PO BID RF: 0 quetiapine 200 mg tablet 200 mg PO DAILY RF: 0 tramadol 50 mg tablet 100 mg PO DAILY RF: 0 sumatriptan succinate [Imitrex] 50 mg tablet See Rx Instructions PO .COMPLEX RF: 0 hydroxyzine HCl 50 mg tablet 50 mg PO BEDTIME PRN (Reason: anxiety) Qty: 90 RF: 3 prazosin 2 mg capsule 1 mg PO BEDTIME RF: 0 venlafaxine 150 mg capsule,extended release 24hr 150 mg PO QAM Qty: 90 RF: 3 fluticasone propion-salmeterol [Advair Diskus] 100-50 mcg/dose blister with device 1 inh inhalation BID Qty: 60 RF: 0 ondansetron HCl [Zofran] 4 mg tablet 4 mg PO DAILY PRN (Reason: nausea and vomiting) RF: 0 epinephrine [EpiPen] 0.3 mg/0.3 mL auto-injector 0.3 mg IM Q5-15M PRN (Reason: anaphylaxis) Qty: 2 RF: 0 albuterol sulfate 90 mcg/actuation HFA aerosol inhaler 2 puff INHALATION Q4-6H PRN (Reason: shortness of breath or wheezing) Qty: 8.5 RF: 2 Referrals: Juan J Thakkar MD [Primary Care Provider] -
[2021-01-02] MEDS: SODIUM CHLORIDE 0.9% 1,000 ML 1000 ML IV (03:39)
[2021-01-02] MEDS: LORazepam 2 MG/ML INJ 1 MG IV (03:39)
[2021-01-02 03:47] LABS: Add Manual Diff / Slide Review NO; Basophils Absolute Auto 0 /uL (0-100); Basophils Percent Auto 0.6 % (0-2); Eosinophils Absolute Auto 300 /uL (0-450); Eosinophils Percent Auto 4.3 % (2-4); Hematocrit 40.1 % (41-53); Hemoglobin 13.9 g/dL (13.5-17.5); Lymphocytes Absolute Auto 2500 /uL (1100-4500); Mean Corpuscular HGB Conc 34.7 % (30-36); Mean Corpuscular Hemoglobin 30.3 PG (26-34); Mean Corpuscular Volume 87.3 fL (80-100); Monocytes Absolute Auto 400 /uL (0-900); Monocytes Percent Auto 5.9 % (3-14); Neutrophils Absolute Auto 2900 /uL (1500-7000); Neutrophils Percent Auto 48.2 % (50-75); Platelet Count 212 X10^3/uL (150-400); Red Blood Cell Count 4.59 X10^6/uL (4.5-5.9); Red Cell Distribution Width 11.8 % (11.6-14.8)
[2021-01-02 03:55] LABS: Acetaminophen < 10 ug/mL (10-30); Ethanol (ETOH) < 10 mg/dL; Salicylate < 1.0 mg/dL (<20)
[2021-01-02 03:56] LABS: Alanine Aminotransferase 18 IU/L (<50); Albumin 4.1 g/dL (3.5-5.0); Albumin Globulin Ratio 1.6 (1.0-2.8); Alkaline Phosphatase 51 U/L (38-126); Aspartate Aminotransferase 20 IU/L (17-59); BUN Creatinine Ratio 18.2 (6-22); Bilirubin Total 0.2 mg/dL (0.2-1.3); Blood Urea Nitrogen 18 mg/dL (9-20); Calcium 9.4 mg/dL (8.4-10.2); Carbon Dioxide 23 mmol/L (22-32); Chloride 108 mmol/L (98-107); Estimated Glomerular Filt Rate > 60.0 mL/min (>60); Globulin 2.6 g/dL (1.7-4.1); Glucose 105 mg/dL (70-100); HEMOLYSIS < 15 (0-50); Potassium 3.6 mmol/L (3.4-5.1); Sodium 138 mmol/L (137-145); Total Protein 6.7 g/dL (6.3-8.2)
[2021-01-02 03:57] LABS: Ur Creatinine 20 (Normal)
[2021-01-02 03:58] LABS: UR Morphine/Opiate cutoff 300 Negative (Negative); Urine Amphetamines Negative (Negative); Urine Barbiturates Negative (Negative); Urine Benzodiazepines Negative (Negative); Urine Cocaine Negative (Negative); Urine MDMA Negative (Negative); Urine Methadone Negative (Negative); Urine Methamphetamines Negative (Negative); Urine Oxycodone Negative (Negative); Urine Phencyclidine Negative (Negative); Urine Tetrahydrocannabinol Positive (Negative); Urine Tricyclic Antidepressant Positive (Negative); Urine pH 7.5 (Normal)
[2021-01-02 04:15] LABS: Lithium 0.3 mmol/L (0.6-1.2)
[2021-01-02] MEDS: LORazepam 0.5 MG TABLET 1 MG PO (04:43)
[2021-01-02 04:49] LABS: TSH w/ Reflex to FT4 2.73 uIU/mL (0.47-4.68)
[2021-01-02 04:51] VITALS: BP 132/81; PULSE 79; RESP 20; O2SAT 99
== END 2021-01-02 04:50 | disposition home or self-care (01) ==
PROVIDERS: Emergency Provider Emergency Medicine; PCP Student in an Organized Health Care Education/Training Program
DX: F41.9 Anxiety disorder, unspecified (principal); G47.00 Insomnia, unspecified; R78.89 Finding of other specified substances, not normally found in blood
CPT/HCPCS: 36415; 80053; 80178; 80305; 80320; 80329; 81003; 83735; 84443; 85025; 96361; 96374; 99284; G0480; J2060

== ENCOUNTER 2021-01-07 13:28 | Observation (INO) | payer OTHER, MEDICAID, SELFPAY ==
[2021-01-07] VITALS (14 sets, daily range): BP systolic 125–179; BP diastolic 63–98; PULSE 69–94; RESP 14–25; TEMP 36.6; O2SAT 94–98; BMI 29.5
--- NOTE | 2021-01-07 13:39 | DI.RAD.S_ITS ---
PROCEDURE: XR CHEST 1V INDICATIONS: Possible stroke TECHNIQUE: One view of the chest was acquired. COMPARISON: [facility], , XR CHEST 1V, 10/03/2020, 1:00. FINDINGS: Surgical changes and devices: None. Lungs and pleura: Questionable ground-glass opacity in the right lung base (versus atelectasis). The lungs are otherwise clear. No pleural effusions or pneumothorax. Mediastinum: Mediastinal contours appear normal. Heart size is normal. Bones and chest wall: No suspicious bony lesions. Overlying soft tissues appear unremarkable. IMPRESSION: Questionable ground-glass airspace opacity in the right lung base may be atelectatic although early infection could cause a similar appearance. Dictated by: Félix Joshi M.D. on 01/07/2021 at 14:02 Approved by: Félix Joshi M.D. on 01/07/2021 at 14:02
--- NOTE | 2021-01-07 13:39 | DI.CT.S_ITS ---
PROCEDURE: CT STROKE INDICATIONS: Left sided facial droop,left side weakness. LKW [id number] TECHNIQUE: Noncontrast 4.5 mm thick angled axial sections acquired from the foramen magnum to the vertex, with coronal reformats. For radiation dose reduction, the following was used: automated exposure control, adjustment of mA and/or kV according to patient size. COMPARISON: None. FINDINGS: Image quality: Excellent. CSF spaces: Basal cisterns are patent. No extra-axial fluid collections. Ventricles are normal in size and shape. Brain: No midline shift. No intracranial masses or hemorrhage. Fletcher-white matter interface is normal. Skull and face: Calvarium and visualized facial bones are intact, without suspicious lesions. Sinuses: Visualized sinuses and mastoids are clear. IMPRESSION: No acute intracranial abnormality. Findings were discussed with Dr. Castañeda at 1353 PM on 01/07/2021. This study fulfills neurological imaging criteria for inclusion or exclusion of acute stroke therapies based on available published neurological imaging guidelines. Dictated by: Félix Joshi M.D. on 01/07/2021 at 13:51 Approved by: Félix Joshi M.D. on 01/07/2021 at 14:00
--- NOTE | 2021-01-07 13:42 | PC.NURSE ---
LKW 0000
[2021-01-07 14:19] LABS: Add Manual Diff / Slide Review NO; Basophils Absolute Auto 100 /uL (0-100); Basophils Percent Auto 0.8 % (0-2); Eosinophils Absolute Auto 200 /uL (0-450); Eosinophils Percent Auto 2.2 % (2-4); Hematocrit 42.9 % (41-53); Hemoglobin 14.9 g/dL (13.5-17.5); Lymphocytes Absolute Auto 2700 /uL (1100-4500); Mean Corpuscular HGB Conc 34.7 % (30-36); Mean Corpuscular Hemoglobin 30.4 PG (26-34); Mean Corpuscular Volume 87.5 fL (80-100); Monocytes Absolute Auto 300 /uL (0-900); Monocytes Percent Auto 4.5 % (3-14); Neutrophils Absolute Auto 4100 /uL (1500-7000); Neutrophils Percent Auto 55.5 % (50-75); Platelet Count 208 X10^3/uL (150-400); Red Cell Distribution Width 11.8 % (11.6-14.8); White Blood Cell Count 7.4 X10^3/uL (4.5-11.0)
[2021-01-07 14:21] LABS: INR 0.9 (0.9-1.3); Prothrombin Time 10.2 SECONDS (10.1-12.7)
[2021-01-07 14:24] LABS: PTT Partial Thromboplastin Tim 33 SECONDS (26.4-36.2)
[2021-01-07 14:41] LABS: Alanine Aminotransferase 19 IU/L (<50); Albumin 4.2 g/dL (3.5-5.0); Albumin Globulin Ratio 1.6 (1.0-2.8); Alkaline Phosphatase 51 U/L (38-126); Aspartate Aminotransferase 21 IU/L (17-59); Bilirubin Total < 0.1 mg/dL (0.2-1.3); Blood Urea Nitrogen 12 mg/dL (9-20); Calcium 9.2 mg/dL (8.4-10.2); Carbon Dioxide 25 mmol/L (22-32); Chloride 105 mmol/L (98-107); Creatine Kinase 59 U/L (55-170); Estimated Glomerular Filt Rate > 60.0 mL/min (>60); Globulin 2.6 g/dL (1.7-4.1); Glucose 111 mg/dL (70-100); HEMOLYSIS 19 (0-50); Potassium 3.9 mmol/L (3.4-5.1); Sodium 138 mmol/L (137-145); Total Protein 6.8 g/dL (6.3-8.2)
[2021-01-07 14:51] LABS: Troponin I < 0.012 ng/mL (0.01-0.034)
[2021-01-07] MEDS: ONDANSETRON 4 MG/2 ML INJ IV ×2 (15:18→22:01)
--- NOTE | 2021-01-07 16:58 | ED_ITS ---
HPI - Neuro Symptoms/Deficit General Chief Complaint: Neuro Symptoms/Deficit Stated Complaint: feels like he is having a stroke Time Seen by Provider: 01/07/21 16:53 Source: patient Mode of arrival: Wheelchair Limitations: no limitations History of Present Illness HPI Narrative: This is a 45-year-old male with a known history of bipolar, hypertension and prior stroke with left sided deficit which resolved over sev eral months which he states was secondary to heat stroke. Patient states at midnight he noted that his left lower extremity was dragging this morning around 6:30 a.m. he appreciated that his face had some droop. Patient states that he has also felt confused in terms of the date and time. Patient states that he has noticed some numbness and in his left side. He denies any fevers, no chills, no congestion. He had a headache developed about 10:30 this morning. He has had a history of migraines in the past he has had nausea and threw up 3 times. He denies any chest pain or shortness of breath. No issues with bowel movements. He denies any urinary issues. Patient states that he has had angioplasty but never had a cardiac stent he states he has been catheterized x3 and his circular stuffer is Dr. Ojeda in [place]. Patient's primary care is Dr. Thakkar. Patient states he does take [place], he states he has been on a steady dose of 600 mg but that his levels have been low. He states he does take an aspirin 81 mg daily which he had 1 dose today, lisinopril as well as Abilify, venlafaxine, lithium, Seroquel, tramadol and trazodone. Patient states he does have an iodine allergy but that he is able to tolerate it with Benadryl and steroids. He also states his migraines are typically treated with Toradol, Zofran, Benadryl and dilaudid. On Anticoagulants: No Related Data Home Medications Medication Instructions Recorded Confirmed amlodipine 10 mg tablet 10 mg PO DAILY 12/31/20 12/31/20 aripiprazole 10 mg tablet 10 mg PO DAILY 12/31/20 12/31/20 aspirin 81 mg tablet,delayed 81 mg PO DAILY 12/31/20 12/31/20 release lithium carbonate 300 mg tablet 300 mg PO BID 12/31/20 12/31/20 ondansetron HCl 4 mg tablet 4 mg PO DAILY PRN tab 12/31/20 12/31/20 prazosin 2 mg capsule 1 mg PO BEDTIME cap 12/31/20 12/31/20 quetiapine 200 mg tablet 200 mg PO DAILY 12/31/20 12/31/20 sumatriptan succinate 50 mg tablet See Rx Instructions PO .COMPLEX 12/31/20 12/31/20 tramadol 50 mg tablet 100 mg PO DAILY tab 12/31/20 12/31/20 Previous Rx's Medication Instructions Recorded albuterol sulfate 2 puff INHALATION Q4-6H PRN #8.5 12/23/19 gram epinephrine [EpiPen] 0.3 mg IM Q5-15M PRN #2 each 06/11/20 fluticasone 100 mcg-salmeterol 50 1 inh INHALATION BID #60 ea 12/31/20 mcg/dose blistr powdr for inhalation hydroxyzine HCl 50 mg tablet 50 mg PO BEDTIME PRN #90 tab 12/31/20 venlafaxine 150 mg 150 mg PO QAM #90 cap 12/31/20 capsule,extended release 24 hr lorazepam 1 mg tablet 1 mg PO BID PRN 10 Days #20 tab 01/03/21 Allergies Allergy/AdvReac Type Severity Reaction Status Date / Time gabapentin Allergy ITCHING Verified 01/07/21 13:36 Iodinated Contrast Media Allergy Verified 01/07/21 13:36 prochlorperazine Allergy Anaphylaxis Verified 01/07/21 13:36 [From Compazine] metoclopramide [From Reglan] AdvReac Vomiting Verified 01/07/21 13:36 Review of Systems Review of Systems ROS Unobtainable: All systems reviewed & are unremarkable except as noted in HPI and below Hematologic/Lymphatic On Anticoagulants: No Patient History Medical History (Updated 01/07/21 @ 18:53 by Micki Castañeda DO) Coronary artery disease Seizures Surgical History H/O cardiac catheterization Social History Smoking Status: Current every day smoker Smoking Status: Current every day smoker alcohol intake frequency: holidays/special occasions only Substance Use Type: does not use Exam Narrative Exam Narrative: GEN: well nourished, well appearing male, alert and oriented x 3, patient appears to be in mild distress. HEENT: Atraumatic, pupils are equal round reactive to light, extraocular movements are intact, nares are clear, TMs are clear with no fluid, there is no conjunctival pallor. Throat is clear without any exudates, erythema, tonsillar enlargement or uvular deviation, mild facial droop patient does have a decreased movement of his left cheek when he puffs his cheeks. HEART: Regular rate and rhythm without murmur, clicks, rubs. LUNGS:Lungs clear to auscultation, no wheezes, rales, crackles, chest moves symmetrically ABD:bowel sounds normal, soft, non-tender, no guarding, rebound, rigidity, no m asses noted, no hepatosplenomegaly :No CVA tenderness MSCL: Non-tender, no muscle atrophy. Patient has some difficulty with straight leg raise on the left lower extremity. He also has some difficulty with mild drift on the left upper extremity. He is able to touch and reach the NIH cards without issue. Patient does not have any right-sided weakness appreciated on exam. NEURO:CN 2-12 intact, sensation normal, finger nose finger test normal slower on left, heel ya test normal on right and on left patient has difficulty with left heel ya. No dysarthria appreciated. Initial Vital Signs Initial Vital Signs: Vital Signs Temperature 97.9 F 01/07/21 13:32 Pulse Rate 94 H 01/07/21 13:32 Respiratory Rate 14 01/07/21 13:32 Blood Pressure 138/88 01/07/21 13:32 Pulse Oximetry 98 01/07/21 13:32 Scores NIH Stroke Scale Level of Conciousness: Alert, keenly responsive Ask month/age: Answers both questions correctly. Open/close eyes, close hand: Performs both tasks correctly Best gaze horizontal: Normal Visual jarrell: No visual loss Facial palsy: Minor paralysis, flattened nasolabial fold, asymmetry on smiling Left arm drift: Drifts down, not to bed Right arm drift: No drift for full 10 sec Left leg drift: No drift for full 5 sec Right leg drift: No drift for full 5 sec Limb ataxia: Present in one limb Sensory on face/arms/legs: Mild to moderate sensory loss, can tell touch Best language: No aphasia, normal Dysarthria: Normal Extinction or inattention: No abnormality Total NIH Stroke scale score: 4 Course Orders Ordered: ED Orders 01/07/21 13:39 CT Stroke Stat XR chest 1V Stat 01/07/21 13:59 Complete Blood Count AUTO DIFF Stat Comprehensive Metabolic Panel Stat [place] Stat Partial Thromboplastin Time Stat Prothrombin Time INR Stat Troponin & CK Cardiac Panel Stat 01/07/21 14:08 Urine Drug Screen, Rapid Stat 01/07/21 14:31 EKG-12 Lead Stat 01/07/21 17:25 CT angio head and neck Stat Discontinued Medications Aspirin (Aspirin 81 Mg Chew Tab) 243 mg PO NOW ONE Stop: 01/07/21 17:26 Last Admin: 01/07/21 17:41 Dose: 243 mg Documented by: MICHEL Diphenhydramine HCl (Diphenhydramine 50 Mg/Ml Vial) 50 mg IV NOW ONE Stop: 01/07/21 17:27 Last Admin: 01/07/21 17:41 Dose: 50 mg Documented by: MICHEL Hydromorphone HCl (Hydromorphone 0.5 Mg Inj) 0.5 mg IV NOW ONE Stop: 01/07/21 19:06 Last Admin: 01/07/21 19:15 Dose: 0.5 mg Documented by: TARAS Ketorolac Tromethamine (Ketorolac 60 Mg/2 Ml Vial) 15 mg IV NOW ONE Stop: 01/07/21 17:27 Last Admin: 01/07/21 17:41 Dose: 15 mg Documented by: MICHEL Methylprednisolone (Methylprednisolone 125 Mg/2 Ml Vial) 125 mg IV NOW ONE Stop: 01/07/21 17:27 Last Admin: 01/07/21 17:41 Dose: 125 mg Documented by: MICHEL Ondansetron HCl (Ondansetron 4 Mg/2 Ml Inj) 4 mg IV NOW ONE Stop: 01/07/21 15:15 Last Admin: 01/07/21 15:18 Dose: 4 mg Documented by: TEE Reevaluation(s) Reevaluation #1: Patient migraine symptoms are somewhat improved but still prese nt. We did review his labs and imaging today. Patient and I also discussed that his physical exam is sometimes intermittent weakness on evaluation. Discussed that I cannot clearly rule in or out stroke without MRI. We also discussed with his migraine type symptoms this could potentially be a variant. Patient and I discussed he is open to observation with the hospitalist. We did discuss that if they feel patient needs Neurology and transfer he does not wish to do this and would choose to return home. Will give some medication for pain here in the department. Time: 19:01 Consultations Consultation #1: Spoke with PBX INSTALLER Jose Hernandez who accepts for observation with plan for MRI in am. Discussed possible differential. Time: 19:35 Vital Signs Vital signs: Vital Signs - 8 hr 01/07/21 13:32 01/07/21 15:41 01/07/21 15:43 Temperature 97.9 F Pulse Rate 94 H 75 77 Respiratory Rate 14 25 H 21 Blood Pressure 138/88 138/98 H Pulse Oximetry 98 97 96 01/07/21 16:00 01/07/21 16:30 01/07/21 17:00 Temperature Pulse Rate 85 78 81 Respiratory Rate 23 24 20 Blood Pressure 134/86 132/79 Pulse Oximetry 96 96 95 01/07/21 17:01 01/07/21 17:30 01/07/21 17:59 Temperature Pulse Rate 82 77 74 Respiratory Rate 19 21 19 Blood Pressure 142/63 H 151/93 H 141/90 H Pulse Oximetry 96 95 97 01/07/21 18:00 01/07/21 18:30 01/07/21 19:00 Temperature Pulse Rate 72 72 69 Respiratory Rate 19 19 20 Blood Pressure 125/75 129/83 132/78 Pulse Oximetry 97 96 96 01/07/21 19:30 Temperature Pulse Rate 73 Respiratory Rate 17 Blood Pressure 179/84 H Pulse Oximetry 94 MDM - Neuro Symptoms/Deficit Lab Data Attestation: I reviewed the patient's lab results. Result diagrams: 01/07/21 13:59 01/07/21 13:59 Labs: Lab Results 01/07/21 01/07/21 01/07/21 Range/Units 13:59 13:59 13:59 WBC 7.4 (4.5-11.0) X10^3/uL RBC 4.90 (4.5-5.9) X10^6/uL Hgb 14.9 (13.5-17.5) g/dL Hct 42.9 (41-53) % MCV 87.5 (80-100) fL MCH 30.4 (26-34) PG MCHC 34.7 (30-36) % RDW 11.8 (11.6-14.8) % Plt Count 208 (150-400) X10^3/uL Neut % (Auto) 55.5 (50-75) % Lymph % (Auto) 37.0 (25-40) % [place] % (Auto) 4.5 (3-14) % Eos % (Auto) 2.2 (2-4) % Baso % (Auto) 0.8 (0-2) % Neut # (Auto) 4100 (0562-6664) /uL Lymph # (Auto) 2700 (1465-8376) /uL [place] # (Auto) 300 (0-900) /uL Eos # (Auto) 200 (0-450) /uL Baso # (Auto) 100 (0-100) /uL PT 10.2 (10.1-12.7) SECONDS INR 0.9 (0.9-1.3) APTT 33 (26.4-36.2) SECONDS Sodium 138 (137-145) mmol/L Potassium 3.9 (3.4-5.1) mmol/L Chloride 105 (98-107) mmol/L Carbon Dioxide 25 (22-32) mmol/L BUN 12 (9-20) mg/dL Creatinine 1.09 (0.66-1.25) mg/dL Estimated GFR > 60.0 (>60) mL/min BUN/Creatinine Ratio 11.0 (6-22) Glucose 111 H (70-100) mg/dL Calcium 9.2 (8.4-10.2) mg/dL Total Bilirubin < 0.1 L (0.2-1.3) mg/dL AST 21 (17-59) IU/L ALT 19 (<50) IU/L Alkaline Phosphatase 51 (38-126) U/L Total Creatine Kinase 59 (55-170) U/L CK-MB (CK-2) TNP CK-MB (CK-2) Rel Index TNP Troponin I < 0.012 (0.01-0.034) ng/mL Total Protein 6.8 (6.3-8.2) g/dL Albumin 4.2 (3.5-5.0) g/dL Globulin 2.6 (1.7-4.1) g/dL Albumin/Globulin Ratio 1.6 (1.0-2.8) U Opiates 300ng/mL cut (Negative) Ur Oxycodone Screen (Negative) Urine Methadone Screen (Negative) Ur Barbiturates Screen (Negative) U Tricyclic Antidepress (Negative) Ur Phencyclidine Scrn (Negative) Ur Amphetamines Screen (Negative) U Methamphetamines Scrn (Negative) Ur MDMA Scrn (Ecstasy) (Negative) U Benzodiazepines Scrn (Negative) [place] (0.6-1.2) mmol/L Urine Cocaine Screen (Negative) U Marijuana (THC) Screen (Negative) 01/07/21 01/07/21 Range/Units 13:59 14:08 WBC (4.5-11.0) X10^3/uL RBC (4.5-5.9) X10^6/uL Hgb (13.5-17.5) g/dL Hct (41-53) % MCV (80-100) fL MCH (26-34) PG MCHC (30-36) % RDW (11.6-14.8) % Plt Count (150-400) X10^3/uL Neut % (Auto) (50-75) % Lymph % (Auto) (25-40) % [place] % (Auto) (3-14) % Eos % (Auto) (2-4) % Baso % (Auto) (0-2) % Neut # (Auto) (1480-9140) /uL Lymph # (Auto) (5159-9343) /uL [place] # (Auto) (0-900) /uL Eos # (Auto) (0-450) /uL Baso # (Auto) (0-100) /uL PT (10.1-12.7) SECONDS INR (0.9-1.3) APTT (26.4-36.2) SECONDS Sodium (137-145) mmol/L Potassium (3.4-5.1) mmol/L Chloride (98-107) mmol/L Carbon Dioxide (22-32) mmol/L BUN (9-20) mg/dL Creatinine (0.66-1.25) mg/dL Estimated GFR (>60) mL/min BUN/Creatinine Ratio (6-22) Glucose (70-100) mg/dL Calcium (8.4-10.2) mg/dL Total Bilirubin (0.2-1.3) mg/dL AST (17-59) IU/L ALT (<50) IU/L Alkaline Phosphatase (38-126) U/L Total Creatine Kinase (55-170) U/L CK-MB (CK-2) CK-MB (CK-2) Rel Index Troponin I (0.01-0.034) ng/mL Total Protein (6.3-8.2) g/dL Albumin (3.5-5.0) g/dL Globulin (1.7-4.1) g/dL Albumin/Globulin Ratio (1.0-2.8) U Opiates 300ng/mL cut Positive H (Negative) Ur Oxycodone Screen Negative (Negative) Urine Methadone Screen Negative (Negative) Ur Barbiturates Screen Negative (Negative) U Tricyclic Antidepress Positive H (Negative) Ur Phencyclidine Scrn Negative (Negative) Ur Amphetamines Screen Negative (Negative) U Methamphetamines Scrn Negative (Negative) Ur MDMA Scrn (Ecstasy) Negative (Negative) U Benzodiazepines Scrn Negative (Negative) [place] < 0.2 L (0.6-1.2) mmol/L Urine Cocaine Screen Negative (Negative) U Marijuana (THC) Screen Positive H (Negative) Urine Dip Bedside Urine Glucose Negative Bedside Urine Bilirubin - Negative Bedside Urine Ketone - Negative Urine Specific [place] 1.025 Bedside Urine Occult Blood - Negative Bedside Urine pH 5.5 Bedside Urine Protein - Negative Bedside Urine Urobilinogen - Negative Bedside Urine Nitrite - Negative Bedside Urine Leukocytes - Negative Esterase Imaging Data CT scan - head: Radiologist's Impression: Angelito Joshi 45 M [address] Scan ReportSigned Patient: Angelito Joshi BMR#: [id number]: 1975Acct:[id number]/Sex: 45 / MDate of Service: 01/07/21Loc: EDAccession Number: [id number] Procedure: CT Stroke Ordering Provider: Micki Castañeda D.O. PROCEDURE: CT STROKE INDICATIONS: Left sided facial droop,left side weakness. [id number] [id number] TECHNIQUE: Noncontrast 4.5 mm thick angled axial sections acquired from the foramen magnum to the vertex, with coronal reformats. For radiation dose reduction, the following was used: automated exposure control, adjustment of mA and/or kV according to patient size. COMPARISON: None. FINDINGS: Image quality: Excellent. CSF spaces: Basal cisterns are patent. No extra-axial fluid collections. Ventricles are normal in size and shape. Brain: No midline shift. No intracranial masses or hemorrhage. Fletcher-white matter interface is normal. Skull and face: Calvarium and visualized facial bones are intact, without suspicious lesions. Sinuses: Visualized sinuses and mastoids are clear. IMPRESSION: No acute intracranial abnormality. Findings were discussed with Dr. Castañeda at 1353 PM on 01/07/2021. This study fulfills neurological imaging criteria for inclusion or exclusion of acute stroke therapies based on available published neurological imaging guidelines. Dictated by: Félix Joshi M.D. on 01/07/2021 at 13:51 Approved by: Félix Joshi M.D. on 01/07/2021 at 14:00 Chest x-ray: Radiologist's Impression: [address] [id number] ReportSigned Patient: Angelito Joshi BMR#: [id number]: 1975Acct:[id number]/Sex: 45 / MDate of Service: 01/07/21Loc: EDAccession Number: [id number] Procedure: XR chest 1V Ordering Provider: Micki Castañeda D.O. PROCEDURE: XR CHEST 1V INDICATIONS: Possible stroke TECHNIQUE: One view of the chest was acquired. COMPARISON: [facility], XR CHEST 1V, 10/03/2020, 1:00. FINDINGS: Surgical changes and devices: None. Lungs and pleura: Questionable ground-glass opacity in the right lung base (versus atelectasis). The lungs are otherwise clear. No pleural effusions or pneumothorax. Mediastinum: Mediastinal contours appear normal. Heart size is normal. Bones and chest wall: No suspicious bony lesions. Overlying soft tissues appe ar unremarkable. IMPRESSION: Questionable ground-glass airspace opacity in the right lung base m ay be atelectatic although early infection could cause a similar appearance. Dictated by: Félix Joshi M.D. on 01/07/2021 at 14:02 Approved by: Félix Joshi M.D. on 01/07/2021 at 14:02 CTA - brain/neck: Radiologist's Impression: [facility] [place] [id number] Scan ReportSigned Patient: Angelito Joshi BMR#: [id number]: 1975Acct:[id number]/Sex: 45 / MDate of Service: 01/07/21Loc: EDAccession Number: [id number] Procedure: CT angio head and neck Ordering Provider: Micki Castañeda D.O. PROCEDURE: CT ANGIO HEAD AND NECK INDICATIONS: facial droop, left leg weakness, started midnight. TECHNIQUE: Noncontrast images were performed earlier in the day and not repeated. After the administration of intravenous contrast, 1 mm thick sections acquired from the a ortic arch through the [place] of [place]. Post-contrast 4.5 mm thick sections then re- acquired from the foramen magnum to the vertex. 3-dimensional qnjwfxl-uwavbhngs-jxmirilmut (MIP) and/or volume rendering reformats were acquired of the central intracranial vasculature and neck separately. COMPARISON: [facility], CT, CT HEAD/BRAIN WO CON, 12/05/2019, 22:22. [facility], CT, CT STROKE, 01/07/2021, 13:42. FINDINGS: Image quality: Excellent. BRAIN: CSF spaces: Ventricles are normal in size and shape. Basal cisterns are patent. No extra-axial fluid collections. Brain: No midline shift. No intracranial bleeds or masses. Fletcher-white matter interface appears intact. Skull and face: Calvarium and facial bones appear intact, without suspicious lesions. Orbits appear normal. Sinuses: Sinuses and mastoids are clear. HEAD CT ANGIOGRAPHY: Anterior circulation: Intracranial internal carotid arteries are normal in size and flow. The flow within the paired anterior cerebral arteries is normal and symmetric. The flow within the middle cerebral arteries is normal and symmetric. The anterior communicating artery is seen. No aneurysms are seen. Posterior circulation: Visualized portions of the vertebral arteries demonstrate normal caliber, and join to form a normal appearing basilar artery. Flow within the posterior cerebral arteries is normal and symmetric. No aneurysms are seen. NECK CT ANGIOGRAPHY: Carotid system: The great vessels demonstrate a conventional anatomy as they arise from the aortic arch. The origins of the common carotid arteries appear patent. The common carotid arteries demonstrate normal caliber and courses. The bifurcation regions are both widely patent. The internal carotid arteries demonstrate normal calibers and courses. Posterior circulation: The origins of the vertebral arteries both appear widely patent. The more superior extracranial portions of both vertebral arteries also demonstrate normal courses and calibers. They join to form a normal appearing basilar artery. Soft tissues: Visualized neck soft tissues demonstrate no suspicious abnormalities. Bones: No suspicious bony lesions. Visualized cervical spine appears normally aligned. IMPRESSION: No significant intracranial arterial abnormality is seen. Within the arteries of the neck, no hemodynamically significant stenosis can be seen. Any quantitative measurements of stenosis were performed using NASCET criteria. Dictated by: Suleman Harris M.D. on 01/07/2021 at 17:12 Approved by: Suleman Harris M.D. on 01/07/2021 at 17:14 ECG Data Attestation: I personally reviewed and interpreted this ECG as follows: Interpretation: Sinus rhythm rate 80, PA 158 QRS of 90 QTC of 461. No acute ST elevation depression appreciated. MDM Narrative Medical decision making narrative: This is a 45-year-old male who comes in with left-sided weakness and numbness/tingling that started at midnight and became facial weakness. Patient states that he also has a headache today. He is somewhat light sensitive. Patient states he has had a prior stroke which he relates to being resulted from heat stroke. He states he had 4 months of deficits that emergently resolved and were left-sided. He does take medication for hypertension a daily aspirin as well as multiple medications to help with his bipolar. He does state that his lithium level has been low recently and they have had difficulty making sure that improved. Patient is far outside the window as a tPA candidate, he is over 12 hours from initial onset of symptoms. He does not appear to have continuing involving symptoms in the department. Are his labs do not show any other acute findings that would be the cause of his symptoms today. Patient did have some medications for his headache which was somewhat improved. Given additional dose of pain medication. Discussed with the hospitalist service who accepts after discussion of possible differential. Stroke Core Measures Exclusion Criteria TPA in CVA: Symptom Onset >3 or 4.5 Hours Discharge Plan Departure Patient Disposition: Admitted as Observation Clinical Impression: Acute left-sided muscle weakness Admit Date/Time: 01/07/21 19:35 Admit Provider: Cornelius Hernandez
[2021-01-07 17:08] LABS: Lithium < 0.2 mmol/L (0.6-1.2)
[2021-01-07 17:20] LABS: UR Morphine/Opiate cutoff 300 Positive (Negative); Ur Creatinine Normal (Normal); Ur Specific Gravity Normal (Normal); Urine Amphetamines Negative (Negative); Urine Barbiturates Negative (Negative); Urine Benzodiazepines Negative (Negative); Urine Cocaine Negative (Negative); Urine MDMA Negative (Negative); Urine Methamphetamines Negative (Negative); Urine Phencyclidine Negative (Negative); Urine Tetrahydrocannabinol Positive (Negative); Urine pH Normal (Normal)
[2021-01-07 17:21] LABS: Urine Methadone Negative (Negative); Urine Oxycodone Negative (Negative); Urine Tricyclic Antidepressant Positive (Negative)
--- NOTE | 2021-01-07 17:25 | DI.CT.S_ITS ---
PROCEDURE: CT ANGIO HEAD AND NECK INDICATIONS: facial droop, left leg weakness, started midnight. TECHNIQUE: Noncontrast images were performed earlier in the day and not repeated. After the administration of intravenous contrast, 1 mm thick sections acquired from the aortic arch through the [place] of [place]. Post-contrast 4.5 mm thick sections then re-acquired from the foramen magnum to the vertex. 3-dimensional wgfhxdu-dmbzfnybw-kxfotosinx (MIP) and/or volume rendering reformats were acquired of the central intracranial vasculature and neck separately. COMPARISON: [facility], CT, CT HEAD/BRAIN WO CON, 12/05/2019, 22:22. [facility], CT, CT STROKE, 01/07/2021, 13:42. FINDINGS: Image quality: Excellent. BRAIN: CSF spaces: Ventricles are normal in size and shape. Basal cisterns are patent. No extra-axial fluid collections. Brain: No midline shift. No intracranial bleeds or masses. Fletcher-white matter interface appears intact. Skull and face: Calvarium and facial bones appear intact, without suspicious lesions. Orbits appear normal. Sinuses: Sinuses and mastoids are clear. HEAD CT ANGIOGRAPHY: Anterior circulation: Intracranial internal carotid arteries are normal in size and flow. The flow within the paired anterior cerebral arteries is normal and symmetric. The flow within the middle cerebral arteries is normal and symmetric. The anterior communicating artery is seen. No aneurysms are seen. Posterior circulation: Visualized portions of the vertebral arteries demonstrate normal caliber, and join to form a normal appearing basilar artery. Flow within the posterior cerebral arteries is normal and symmetric. No aneurysms are seen. NECK CT ANGIOGRAPHY: Carotid system: The great vessels demonstrate a conventional anatomy as they arise from the aortic arch. The origins of the common carotid arteries appear patent. The common carotid arteries demonstrate normal caliber and courses. The bifurcation regions are both widely patent. The internal carotid arteries demonstrate normal calibers and courses. Posterior circulation: The origins of the vertebral arteries both appear widely patent. The more superior extracranial portions of both vertebral arteries also demonstrate normal courses and calibers. They join to form a normal appearing basilar artery. Soft tissues: Visualized neck soft tissues demonstrate no suspicious abnormalities. Bones: No suspicious bony lesions. Visualized cervical spine appears normally aligned. IMPRESSION: No significant intracranial arterial abnormality is seen. Within the arteries of the neck, no hemodynamically significant stenosis can be seen. Any quantitative measurements of stenosis were performed using NASCET criteria. Dictated by: Suleman Harris M.D. on 01/07/2021 at 17:12 Approved by: Suleman Harris M.D. on 01/07/2021 at 17:14
[2021-01-07] MEDS: KETOROLAC 60 MG/2 ML VIAL 15 MG IV (17:41)
[2021-01-07] MEDS: ASPIRIN 81 MG CHEW TAB 243 MG PO (17:41)
[2021-01-07] MEDS: diphenhydrAMINE 50 MG/ML VIAL IV (17:41)
[2021-01-07] MEDS: methylPREDNISolone 125 MG/2 ML VIAL IV (17:41)
[2021-01-07] MEDS: HYDROMORPHONE 0.5 MG INJ IV ×2 (19:15→21:50)
--- NOTE | 2021-01-07 20:23 | DI.ECHO.S_ITS ---
[place] [facility]---------+ [facility] +---------+ : : [address] : : : : [id number] : : : : Phone: [phone] Echocardiogram Report + + :Name: DIONNE LO Study Date: 01/08/2021 Height: 74 in : :[facility] ReadingLocation: Weight: 230 lb : : Gender: Male BSA: 2.3 m2 : :: 1975 Age: 45 yrs BP: 179/84 mmHg: :Reason For Study: TIA VS CVA : :Ordering Physician: BEVERLY, : :BERNIE BAKER Performed By: Amanda Velazquez : :Referring: BERNIE PAUL : + + Interpretation Summary 1) Normal left ventricular thickness, size, wall motion, and systolic function (EF 60-65%). 2) Upper normal right ventricular size with normal function. 3) No significant valvular abnormalities. 4) Injection of contrast documented no interatrial shunt. 5) Hypertension present during the study (BP 179/84mmHg). 6) Compared to the Echo done 11/19/2019, no significant change. Procedure: A two-dimensional transthoracic echocardiogram with color flow and Doppler was performed. The study quality was technically adequate. Comparison is made with the echocardiogram of 11/19/2019. A saline contrast injection was performed to assess for cardiac shunting. The patient was in sinus rhythm with heart rates between 66-87 bpm during the exam. Left Ventricle: The left ventricle is normal in size and wall thickness. The ejection fraction is estimated to be 60-65%. Left ventricular systolic function appears normal without focal wall motion abnormalities. Right Ventricle: The right ventricle is at the upper limits of normal in size. The right ventricular systolic function is normal. Atria: The left atrial size is normal. Right atrial size is normal. Injection of contrast documented no interatrial shunt. There is no Doppler evidence for an interatrial shunt. Mitral Valve: The mitral valve is normal in structure and function. There is trace mitral regurgitation. Aortic Valve: The aortic valve is trileaflet. The aortic valve opens well. There is no aortic valve stenosis. No aortic regurgitation is present. Tricuspid Valve: The tricuspid valve is normal in structure and function. There is trace tricuspid regurgitation. Pulmonary artery pressures cannot be estimated because of the lack of a measurable TR jet velocity but the IVC suggests a CVP of around 8 mmHg. Pulmonic Valve: The pulmonic valve leaflets are thin and pliable; valve motion is normal. There is no pulmonic valvular regurgitation. Great Vessels: The aortic root is normal size. The ascending aorta is mildly enlarged. The IVC is dilated (diameter is greater than 2.1 cm) yet it collapses greater than 50% with a sniff. This suggests a right atrial pressure of 8 mm Hg. Pericardium/ Pleura There is no pericardial effusion. There is no pleural effusion. MMode/2D Measurements & Calculations LVIDd: 5.3 cm LVOT diam: 2.2 cm LVIDs: 3.2 cm Ao root diam: 3.6 cm FS: 39.4 % asc Aorta Diam: 3.3 cm EPSS: 0.23 cm Ao Arch Diam (Prox Trans): 3.0 cm IVSd: 0.81 cm LVPWd: 0.82 cm LV mccormick. diameter/BSA (cm/m^2): 2.3 LV sys. diameter/BSA (cm/m^2): 1.4 LA A2 area: 21.3 cm2 RA long axis: 5.0 cm LA A4 area: 19.5 cm2 RA area: 16.1 cm2 LA length (vol): 5.3 cm RA vol: 44.6 ml LA vol: 66.6 ml RA : 19.3 ml/m2 LA vol index: 28.9 ml/m2 IVC diam: 2.1 cm RVD1 (basal): 4.0 cm TAPSE: 2.3 cm Doppler Measurements & Calculations Ao V2 max: 133.9 cm/sec LVOT Max Humble: 121.3 cm/sec Ao V2 mean: 84.0 cm/sec LV V1 max P.9 mmHg Ao max P.2 mmHg LV V1 VTI: 26.8 cm Ao mean P.3 mmHg RILEY(I,D): 3.5 cm2 Ao V2 VTI: 28.8 cm RILEY(V,D): 3.4 cm2 sev ratio: 0.93 RILEY indexed to BSA (cm^2/m^2): 1.5 MV E max humble: 89.9 cm/sec PA V2 max: 100.5 cm/sec Med Peak E' Humble: 9.3 cm/sec PA V2 mean: 73.5 cm/sec E/E' med: 9.7 PA mean P.4 mmHg Lat Peak E' Humble: 11.7 cm/sec PA pr(Accel): 44.7 mmHg E/E' lat: 7.7 E/e' average: 8.7 MV dec time: 0.19 sec SV(LVOT): 99.4 ml Reading Physician:08:52 AM
--- NOTE | 2021-01-07 20:23 | DI.MRI.S_ITS ---
PROCEDURE: MR STROKE Pre- and post-contrast brain MRI, non-contrast brain MR angiogram, pre- and postcontrast neck MR angiogram INDICATIONS: TIA versus CVA versus complex migraine TECHNIQUE: Brain: Noncontrast axial T1 spin echo, axial T2 fast spin echo, sagittal and axial FLAIR, coronal T2 fast spin echo, axial gradient echo, axial diffusion and ADC through the brain. After the administration of contrast, axial 3D VIBE of the cranial vasculature and brain. Brain MRA: Non-contrast 3-D time of flight MR angiogram, with multiple blhcwoa-txxvoowah-lqxfjlwydu (MIP) reformats performed. Neck MRA: Axial and sagittal TruFISP through the neck. Coronal dynamic MR angiogram during administration of contrast in the arterial and venous phases, with 3-dimenstional xflsuaq-riwvoecwy-ymakiyccec (MIP) reformats constructed from subtraction images. COMPARISON: [facility], CT, CT ANGIO HEAD AND NECK, 01/07/2021, 17:49. FINDINGS: Image quality: Good. There is some motion on few sequences. BRAIN: CSF spaces: Ventricles are normal in size and shape. Basal cisterns are patent. No extra-axial fluid collections. Brain: No intracranial bleeds or mass effects. Fletcher-white matter interface is normal. Diffusion weighted images show no acute ischemic insults. Brainstem appears normal. Normal intravascular flow voids are present. No abnormal intracranial enhancement. Skull and face: Calvarial marrow signal is normal. Orbits appear normal. Sinuses: Sinuses and mastoids are clear. BRAIN MR ANGIOGRAM: Anterior circulation: Intracranial internal carotid arteries are normal in size and enhancement. The flow within the paired anterior cerebral arteries is normal and symmetric. The flow within the middle cerebral arteries is normal and symmetric. The anterior communicating artery is seen. No stenoses, occlusions, or aneurysms. Posterior circulation: The visualized portions of the vertebral arteries demonstrate normal caliber, and join to form a normal appearing basilar artery. The flow within the posterior cerebral arteries is normal and symmetric. No stenoses, occlusions, or aneurysms. NECK MR ANGIOGRAM: Carotids: Great vessels demonstrate a conventional anatomy as they arise from the aortic arch. The origins of the common carotid arteries appear patent. The calibers and courses of both common carotid arteries are normal. The bifurcation regions appear normal bilaterally. The internal carotid arteries demonstrate normal course and caliber. Posterior circulation: The origins of the vertebral arteries appear patent. More superior portions of both vertebral arteries demonstrate normal course and caliber, and join to form a normal appearing basilar artery. Miscellaneous: Subclavian arteries appear patent. Pre-contrast images through the neck show no soft tissue abnormalities. IMPRESSION: BRAIN MRI: 1. No restricted diffusion to suggest acute ischemia. 2. No white matter changes to suggest chronic microvascular ischemic changes. BRAIN MR ANGIOGRAM: 1. No significant stenosis, occlusion, or aneurysm in the intracranial arteries. NECK MR ANGIOGRAM: 1. No significant stenosis or dissection in the carotid or vertebral arteries. Dictated by: Mita Elaine M.D. on 01/08/2021 at 10:32 Approved by: Mita Elaine M.D. on 01/08/2021 at 11:07
[2021-01-07 20:30] LABS: COVID19 - ADMIT (NP swab/PCR) Negative (Negative)
[2021-01-07 20:52] LABS: Magnesium 2.1 mg/dL (1.6-2.3)
[2021-01-07 20:54] LABS: Hemoglobin A1C% w Est Avg Glu 5.1 % (4.0-6.0)
--- NOTE | 2021-01-07 21:14 | P.HP_ITS ---
History of Present Illness History of Present Illness Date Patient Seen: 01/07/21 Time Patient Seen: 20:42 Chief complaint: feels like he is having a stroke Narrative: Mr. Angelito Joshi is a 45-year-old male with a past medical history bipolar disorder, PTSD, TIA, prior heat stroke associated left-sided weakness, CAD, hypertension,, migraines and seizures who presents to the ER with left lower extremity weakness, left-sided numbness and tingling in left facial droop. Patient describes getting out of bed last night about midnight and had difficulty moving his left leg and felt it dragging. Return to bed in upon arising in the morning he had left-sided numbness tingling and later a friend noticed left facial drooping. Patient additionally reports severe right parietal headache rated at 8/10 with associated nausea without vomiting, photophobia and phonophobia which all characteristic of his typical migraine presentation though his pain is more intense than previous. Patient does have a cardiac history having had angioplasty and stent. He reports no palpitations or racing heartbeat. The patient was seen by Dr. Carvajal on 12/31 2020 to establish care. At that time the patient reports memo for several days with associated insomnia. He also reports paresthesias and difficulty concentrating and expresses a concern for related to lithium toxicity. The patient presented to the emergency room on 01/02/2021 over concerns the same concern for lithium toxicity where he is lithium level was 0.3. Patient states he had a brief pause pending lithium level results 3 PCP but since has been taking his lithium 300 mg twice daily routinely. Per PCP documentation the patient has multiple somatic complaints with manic episodes. The patient is unhappy with [facility] received his mental health care and Dr. Carvajal is in process of psychiatric referral for care going forward. Patient denies recent illness, fevers or chills. He has headache as described above that is migrainous in character. He denies nasal congestion or sore throat but feels he has had intermittent difficulty swallowing which he he is experience previously in attributes to use anxiety. He reports no complaints of chest pain, pressure or palpitations. He denies shortness of breath exertional dyspnea, cough or wheezing. He denies epigastric or abdominal pain and has nausea which is typical when he has migraines without vomiting. He reports no change in bowel or bladder habits. He denies neck or back pain and has had no falls or trauma. Upon arrival the ER has a blood pressure of 90 7.9, heart rate of 94, blood pressure 138/88, respirations 14 saturating 97% on room air. Brain CT finds no acute intracranial abnormalities. A CT angiogram finds no significant intracranial abnormalities with no hemodynamically significant stenoses the neck arteries. A chest x-ray is obtained finding questionable ground-glass opacity in the right lung base. On laboratory analysis he has a white count of 7.4 without shift, hemoglobin 14.9, hematocrit 42.9 and platelets of 208. His coagulation studies are within normal range. His electrolytes in normal range w ith a BUN of 12 and creatinine of 1.09. He has a total bilirubin of less than 0.1, AST of 21, ALT of 19 alkaline phosphatase 51. His total CK is 59 and troponin is less than 0.012. His lithium level is less than 0.2. On urine tox screen is positive for opiates (prescribed tramadol), try cyclic any presence and marijuana. In the ER the patient received Benadryl and methylprednisolone [address] angiogram, and aspirin and Zofran and Dilaudid 0.5 mg for his headache with improvement. The patient is admitted to the hospitalist team for TIA versus CVA versus complex migraine variant. PCP: Dr. Carvajal cardiology: Dr. Ojeda Patient History Medical History (Updated 01/08/21 @ 00:00 by ) Bipolar 1 disorder with moderate memo Coronary artery disease Hypertension Migraine headache PTSD (post-traumatic stress disorder) Seizure disorder Seizures TIA (transient ischemic attack) Surgical History (Updated 01/07/21 @ 21:36 by OLIVIA Ward) H/O cardiac catheterization History of angioplasty History of heart artery stent Family & Social History Family History (Updated 01/07/21 @ 21:38 by OLIVIA Ward) Father Cancer Mother Hypertension Heart disease Depression Sister Depression Social History: household members other Safety & Behavioral: Feels Safe in Current Yes Environment Been Physically Hurt or No Threatened By a Person Suicidal Ideation Description None Suicide Plan Description No Plan Tobacco & Substance use: Smoking Status Current every day smoker alcohol intake frequency holiday/special occasion Substance Use Type marijuana Meds Home Medications and Allergies Home Medications Medication Instructions Recorded Confirmed Type albuterol sulfate 2 puff INHALATION Q4-6H PRN #8.5 12/23/19 12/31/20 Rx gram epinephrine [EpiPen] 0.3 mg IM Q5-15M PRN #2 each 06/11/20 12/31/20 Rx amlodipine 10 mg tablet 10 mg PO DAILY 12/31/20 12/31/20 History aripiprazole 10 mg tablet 10 mg PO DAILY 12/31/20 12/31/20 History aspirin 81 mg tablet,delayed 81 mg PO DAILY 12/31/20 12/31/20 History release fluticasone 100 mcg-salmeterol 50 1 inh INHALATION BID #60 ea 12/31/20 12/31/20 Rx mcg/dose blistr powdr for inhalation hydroxyzine HCl 50 mg tablet 50 mg PO BEDTIME PRN #90 tab 12/31/20 12/31/20 Rx lithium carbonate 300 mg tablet 300 mg PO BID 12/31/20 12/31/20 History ondansetron HCl 4 mg tablet 4 mg PO DAILY PRN tab 12/31/20 12/31/20 History prazosin 2 mg capsule 1 mg PO BEDTIME cap 12/31/20 12/31/20 History quetiapine 200 mg tablet 200 mg PO DAILY 12/31/20 12/31/20 History sumatriptan succinate 50 mg tablet See Rx Instructions PO .COMPLEX 12/31/20 12/31/20 History tramadol 50 mg tablet 100 mg PO DAILY tab 12/31/20 12/31/20 History venlafaxine 150 mg 150 mg PO QAM #90 cap 12/31/20 12/31/20 Rx capsule,extended release 24 hr lorazepam 1 mg tablet 1 mg PO BID PRN 10 Days #20 tab 01/03/21 Rx Allergies Allergy/AdvReac Type Severity Reaction Status Date / Time gabapentin Allergy ITCHING Verified 01/07/21 13:36 Iodinated Contrast Media Allergy Verified 01/07/21 13:36 prochlorperazine Allergy Anaphylaxis Verified 01/07/21 13:36 [From Compazine] metoclopramide [From Reglan] AdvReac Vomiting Verified 01/07/21 13:36 Review of Systems Review of Systems ROS: Yes All systems reviewed with the patient and are negative except as otherwise documented Exam Vital Signs (past 8 hours): - 01/07/21 13:32 01/07/21 15:41 01/07/21 15:43 Temperature 97.9 F Pulse Rate 94 H 75 77 Respiratory Rate 14 25 H 21 Blood Pressure 138/88 138/98 H Pulse Oximetry 98 97 96 01/07/21 16:00 01/07/21 16:30 01/07/21 17:00 Temperature Pulse Rate 85 78 81 Respiratory Rate 23 24 20 Blood Pressure 134/86 132/79 Pulse Oximetry 96 96 95 01/07/21 17:01 01/07/21 17:30 01/07/21 17:59 Temperature Pulse Rate 82 77 74 Respiratory Rate 19 21 19 Blood Pressure 142/63 H 151/93 H 141/90 H Pulse Oximetry 96 95 97 01/07/21 18:00 01/07/21 18:30 01/07/21 19:00 Temperature Pulse Rate 72 72 69 Respiratory Rate 19 19 20 Blood Pressure 125/75 129/83 132/78 Pulse Oximetry 97 96 96 01/07/21 19:30 Temperature Pulse Rate 73 Respiratory Rate 17 Blood Pressure 179/84 H Pulse Oximetry 94 Oxygen Delivery Method Room Air Narrative Exam Narrative: GENERAL APPEARANCE: well developed, overweight male, in no acute distress. HEENT: Normocephalic, PERRLA, conjunctiva clear, EOMs intact bilateral ny stagmus, mucous membranes are moist and pink. NECK/THYROID: neck supple, no JVD, no thyromegaly, trachea midline. LYMPH NODES: no cervical or supraclavicular lymphadenopathy. SKIN: [place], warm and dry, no visible lesions, rashes, ulcerations or petechiae. HEART: regular rate and rhythm, S1-S2, no murmur, no rubs or gallops, brisk capillary refill, no edema LUNGS: clear to auscultation bilaterally, no coarseness crackles or wheezing, no cough present CHEST: Symmetrical movement, no accessory muscle use, good tidal volume, no conversational dyspnea. ABDOMEN: Soft, no distention, no abdominal tenderness, no organomegaly, active bowel tones. BACK: Nontender to palpation EXTREMITIES: Spontaneous full range of motion bilateral upper extremities, slight drift left arm but not to bed, decreased strength and drift left leg but not to bed on equal cardiovascular surgical tech right greater than left. NEUROLOGIC: AAO x4, NIH score 5, slight left facial droop, no dysarthria, positive photophobia and phonophobia, blunted sensation left upper lower extremities, left lower extremity ataxia. PSYCH: Briskly interactive, mildly restless, slightly pressured speech, cooperative, denies suicidal ideation or thoughts of self-harm. Objective Labs Result Diagrams: 01/07/21 13:59 01/07/21 13:59 Labs: Laboratory Results - last 24 hr 01/07/21 01/07/21 01/07/21 13:59 13:59 13:59 WBC 7.4 RBC 4.90 Hgb 14.9 Hct 42.9 MCV 87.5 MCH 30.4 MCHC 34.7 RDW 11.8 Plt Count 208 Neut % (Auto) 55.5 Lymph % (Auto) 37.0 [place] % (Auto) 4.5 Eos % (Auto) 2.2 Baso % (Auto) 0.8 Neut # (Auto) 4100 Lymph # (Auto) 2700 [place] # (Auto) 300 Eos # (Auto) 200 Baso # (Auto) 100 PT 10.2 INR 0.9 APTT 33 Sodium 138 Potassium 3.9 Chloride 105 Carbon Dioxide 25 BUN 12 Creatinine 1.09 Estimated GFR > 60.0 BUN/Creatinine Ratio 11.0 Glucose 111 H Hemoglobin A1c Calcium 9.2 Magnesium Total Bilirubin < 0.1 L AST 21 ALT 19 Alkaline Phosphatase 51 Total Creatine Kinase 59 CK-MB (CK-2) TNP CK-MB (CK-2) Rel Index TNP Troponin I < 0.012 Total Protein 6.8 Albumin 4.2 Globulin 2.6 Albumin/Globulin Ratio 1.6 U Opiates 300ng/mL cut Ur Oxycodone Screen Urine Methadone Screen Ur Barbiturates Screen U Tricyclic Antidepress Ur Phencyclidine Scrn Ur Amphetamines Screen U Methamphetamines Scrn Ur MDMA Scrn (Ecstasy) U Benzodiazepines Scrn [place] Urine Cocaine Screen U Marijuana (THC) Screen SARS-CoV-2 (PCR) 01/07/21 01/07/21 01/07/21 13:59 13:59 13:59 WBC RBC Hgb Hct MCV MCH MCHC RDW Plt Count Neut % (Auto) Lymph % (Auto) [place] % (Auto) Eos % (Auto) Baso % (Auto) Neut # (Auto) Lymph # (Auto) [place] # (Auto) Eos # (Auto) Baso # (Auto) PT INR APTT Sodium Potassium Chloride Carbon Dioxide BUN Creatinine Estimated GFR BUN/Creatinine Ratio Glucose Hemoglobin A1c 5.1 Calcium Magnesium 2.1 Total Bilirubin AST ALT Alkaline Phosphatase Total Creatine Kinase CK-MB (CK-2) CK-MB (CK-2) Rel Index Troponin I Total Protein Albumin Globulin Albumin/Globulin Ratio U Opiates 300ng/mL cut Ur Oxycodone Screen Urine Methadone Screen Ur Barbiturates Screen U Tricyclic Antidepress Ur Phencyclidine Scrn Ur Amphetamines Screen U Methamphetamines Scrn Ur MDMA Scrn (Ecstasy) U Benzodiazepines Scrn [place] < 0.2 L Urine Cocaine Screen U Marijuana (THC) Screen SARS-CoV-2 (PCR) 01/07/21 01/07/21 14:08 19:32 WBC RBC Hgb Hct MCV MCH MCHC RDW Plt Count Neut % (Auto) Lymph % (Auto) [place] % (Auto) Eos % (Auto) Baso % (Auto) Neut # (Auto) Lymph # (Auto) [place] # (Auto) Eos # (Auto) Baso # (Auto) PT INR APTT Sodium Potassium Chloride Carbon Dioxide BUN Creatinine Estimated GFR BUN/Creatinine Ratio Glucose Hemoglobin A1c Calcium Magnesium Total Bilirubin AST ALT Alkaline Phosphatase Total Creatine Kinase CK-MB (CK-2) CK-MB (CK-2) Rel Index Troponin I Total Protein Albumin Globulin Albumin/Globulin Ratio U Opiates 300ng/mL cut Positive H Ur Oxycodone Screen Negative Urine Methadone Screen Negative Ur Barbiturates Screen Negative U Tricyclic Antidepress Positive H Ur Phencyclidine Scrn Negative Ur Amphetamines Screen Negative U Methamphetamines Scrn Negative Ur MDMA Scrn (Ecstasy) Negative U Benzodiazepines Scrn Negative [place] Urine Cocaine Screen Negative U Marijuana (THC) Screen Positive H SARS-CoV-2 (PCR) Negative Assessment & Plan Assessment & Plan narrative: This patient is a 45-year-old male with a complex psychiatric history including bipolar disorder, current memo, PTSD, as well as history of TIA, prior heat stroke associated left-sided weakness, CAD, hypertension,, migraines and seizures who presents to the ER with severe migrainous headache with new onset left lower extremity weakness left side numbness and tingling and developing left facial droop. 1. New onset left side neuro deficits, possible TIA versus CVA versus complex migraine variant, present on admission, active. -due to the patient's complex history is unclear with this is an atypical migraine for the patient as he has not previously experienced hemiparetic symptoms previously or any acute neurological event with prior history of TIA. -CT and CTA find no acute intracranial abnormalities and no hemodynamically significant stenosis of the neck arteries. Twelve EKG is sinus rhythm without ectopy, block, ST or T-wave changes and no indication of infarct. -the patient has been on aspirin 81 mg daily, and he received an aspirin dose in the emergency room and will continue aspirin 81 mg daily and add Plavix 75 mg da christi. -ordered atorvastatin 20 mg daily -obtain MRI in the morning. -cardiac telemetry, obtain echocardiogram the morning. -will check hemoglobin A1c, lipid panel and TSH. 2. Migraine headache, migraine variant,present on admission, active. -patient with right parietal headache and left-sided neurological symptoms, headache is typical of prior migraines with phonophobia photophobia and nausea. -ordered sumatriptan 50 mg by mouth every 2 hours as needed to maximum dose of 4 tablets or 200 mg per day. -ordered Dilaudid 0.5 mg every 3 hours as needed for severe headache pain. 3. Bipolar disorder, chronic, stable -lithium level is less than 0.2 despite patient reporting taking medication on regular basis. -will continue home regimen of lithium carbonate 300 mg twice daily, Seroquel 200 mg daily, venlafaxine 150 mg extended release daily and aripiprazole 10 mg daily. -order hydroxyzine 50 mg at bedtime to help with sleep and will continue lorazepam 1 mg b.i.d. as needed for anxiety. -will defer modification of psychotropics to outpatient care provider. 4. Essential hypertension, chronic, stable -patient's blood pressure 138/88 upon arrival to the ER and 129/70 upon admission to the acute care floor reflecting good blood pressure control. -will continue home regimen of amlodipine 10 mg daily. 5. Coronary artery disease status post angioplasty with stenting, chronic, stable. -no complaints of chest pain or shortness of breath. -Twelve EKG is sinus rhythm without ectopy, block, ST or T-wave changes and no indication of infarct. -cardiac telemetry. 6. Seizure disorder, chronic, stable. -last seizure was 2 years ago. -Not on seizure medication, had been previously taking Topamax. Taking lorazepam as needed for anxiety. -seizure precautions. VTE prophylaxis: Enoxaparin, SCDs IV fluid: Saline lock Diet: Heart healthy Code status: DO NOT RESUSCITATE, patient designates his mother to be surrogate decision maker. The patient is admitted to the hospital due to the complexity of his presentation requiring further evaluation and monitoring. The patient is admitted as observation status with expected length of stay to be less than 2 midnights. COVID-19 COVID-19 status: Negative Result date/Date tested (Pos, Neg/Pending): 01/07/21 Scores GCS [place] coma scale eye opening: Spontaneous [place] coma scale verbal response: Orientated [place] coma scale motor response: Obey commands [place] coma scale total score: 15 NIHSS Level of Conciousness: Alert, keenly responsive Ask month/age: Answers both questions correctly. Open/close eyes, close hand: Performs both tasks correctly Best gaze horizontal: Normal Visual jarrell: No visual loss Facial palsy: Minor paralysis, flattened nasolabial fold, asymmetry on smiling Left arm drift: Drifts down, not to bed Right arm drift: No drift for full 10 sec Left leg drift: Drifts down, not to bed Right leg drift: No drift for full 5 sec Limb ataxia: Present in one limb Sensory on face/arms/legs: Mild to moderate sensory loss, can tell touch Best language: No aphasia, normal Dysarthria: Normal Extinction or inattention: No abnormality Total NIH Stroke scale score: 5 Quality VTE Deep Vein Thrombosis/Pulmonary Embolism Present on Admission: No MIPS - Admit I confirm the patient?s Advance Care Plan is present, Code status is documented, Surrogate decision maker is in patient?s record [If Yes, STOP here]: Yes
[2021-01-07] MEDS: ACETAMINOPHEN 325 MG TABLET 650 MG PO (21:19)
[2021-01-07] MEDS: LORazepam 1 MG TABLET PO (21:19)
[2021-01-07] MEDS: PRAZOSIN 1 MG CAPSULE PO (21:20)
[2021-01-07] MEDS: hydrOXYzine pamoate 25 MG CAPSULE 50 MG PO (21:20)
[2021-01-07] MEDS: ATORVASTATIN 20 MG TABLET PO (21:20)
[2021-01-07] MEDS: QUETIAPINE 100 MG TABLET 200 MG PO (21:21)
[2021-01-07] MEDS: LITHIUM 300 MG IR CAPSULE PO (21:22)
[2021-01-07] MEDS: VENLAFAXINE ER 75 MG CAP 150 MG PO (21:50)
[2021-01-07] MEDS: DOCUSATE 100 MG CAPSULE PO (21:50)
[2021-01-08 00:06] VITALS: BP 125/64; PULSE 80; RESP 16; TEMP 36.2; O2SAT 97
[2021-01-08] MEDS: SUMAtriptan 25 MG TABLET 50 MG PO ×2 (00:42→04:27)
[2021-01-08] MEDS: HYDROMORPHONE 0.5 MG INJ IV ×3 (00:42→09:30)
[2021-01-08] MEDS: LORazepam 1 MG TABLET PO ×2 (04:28→09:30)
[2021-01-08 05:00] VITALS: BP 132/87; PULSE 85; RESP 16; TEMP 36.4; O2SAT 99
[2021-01-08 05:51] LABS: BUN Creatinine Ratio 15.3 (6-22); Blood Urea Nitrogen 15 mg/dL (9-20); Calcium 9.5 mg/dL (8.4-10.2); Carbon Dioxide 28 mmol/L (22-32); Chloride 102 mmol/L (98-107); Cholesterol 200 mg/dL (140-199); Estimated Glomerular Filt Rate > 60.0 mL/min (>60); Glucose 129 mg/dL (70-100); HDL Cholesterol 51 mg/dL (40-60); HEMOLYSIS < 15 (0-50); LDL Cholesterol Calculated 123 mg/dL (<100); Potassium 4.5 mmol/L (3.4-5.1); Sodium 137 mmol/L (137-145); Triglycerides 132 mg/dL (35-150)
[2021-01-08 08:25] VITALS: BP 129/82; PULSE 85; RESP 16; TEMP 36.7; O2SAT 97
[2021-01-08] MEDS: ONDANSETRON 4 MG/2 ML INJ IV (08:50)
[2021-01-08] MEDS: NAPROXEN 250 MG TABLET 500 MG PO (09:02)
[2021-01-08] MEDS: LITHIUM 300 MG IR CAPSULE PO (09:02)
[2021-01-08] MEDS: ARIPiprazole 10 MG TABLET PO (09:03)
[2021-01-08] MEDS: CLOPIDOGREL 75 MG TABLET PO (09:03)
[2021-01-08] MEDS: TRAMADOL 50 MG TABLET 100 MG PO (09:03)
[2021-01-08] MEDS: ASPIRIN EC 81 MG TABLET PO (09:03)
[2021-01-08] MEDS: AMLODIPINE 5 MG TABLET 10 MG PO (09:03)
[2021-01-08] MEDS: ENOXAPARIN 40 MG/0.4 ML SYRINGE SUBCUT (09:04)
[2021-01-08] MEDS: VENLAFAXINE ER 75 MG CAP 150 MG PO (09:35)
--- NOTE | 2021-01-08 11:17 | OT.IPNOTE ---
Pt just got back from MRI and therefore to check on pt later as currently not appropriate to be seen per nursing.
[2021-01-08] MEDS: HYDROCODONE/ACET 5/325 TABLET 1 TAB PO (11:32)
--- NOTE | 2021-01-08 11:38 | PC.NURSE ---
GERMAN Acosta alerted this nurse coordinator that pt was reported to have had seizure like activity when at his MRI procedure at approx. 1100.The seizure activity was witnessed by dental tech El as he described to this nurse. El reports that pt began to have light tremulous type motion to both his BUE and BLE. Pt's heart rate was reported to have stayed stable. Pt appeared to be sleeping and was not fully arousable for approx. 20 seconds. When pt was arousable he was able to answer yes or no questions. Pt was brought back to his room on the AC floor and Dr. Thomas was notified.
--- NOTE | 2021-01-08 11:45 | PT.IIE ---
Surgical History (Last Updated 01/07/21 @ 21:36 by OLIVIA Ward) H/O cardiac catheterization History of angioplasty History of heart artery stent Medical History (Last Updated 01/07/21 @ 21:36 by OLIVIA Ward) Bipolar 1 disorder with moderate memo Coronary artery disease Hypertension Migraine headache PTSD (post-traumatic stress disorder) Seizure disorder Seizures TIA (transient ischemic attack) Physical Therapy Inpatient Evaluation/Re-Eval M1 PT/OT-IP Prior Functional Status Start: 01/08/21 08:27 Freq: NEEDED Status: Active Protocol: Document 01/08/21 09:35 HH (Rec: 01/08/21 11:44 [email or web address]) Medical Review Prior Functional Status Medical History Reviewed Yes Diet/Fluid Consistency Regular Communication no deficits noted. Mobility and Gait IND for all mobility without AD. Pt stated he has been running 5 miles a day for the past couple months and he has lost 40 lbs already. Activities of Daily Living and IADL's IND for all ADLs and IADLs without AD Prior Functional Level (Other details) past medical history bipolar disorder, PTSD, TIA, prior heat stroke associated left- sided weakness, CAD, hypertension,, migraines and seizures Social History Household Members other Living Arrangements House Number of Floors (Floors) 3 or More Floors Number of Stairs To Enter/Railing? 2 CIARA with B rails pt lives on 2nd level with 12 steps up and B rails. Home Environment Standard Height Toilet,Tub/ Shower Employment Status Unemployed Additional Social History Comment Pt lives alone in [place]. His mother lives in [place] and he stated he has neighbors to assist if needed. M2 PT-IP Current Condition Start: 01/08/21 08:27 Freq: NEEDED Status: Active Protocol: Document 01/08/21 09:35 HH (Rec: 01/08/21 11:44 [email or web address]) Physical Therapy Current Condition Current Condition Evaluation Date 01/08/21 Treatment Diagnosis Possible stroke, migraine, L side weakness, difficulty in walking Onset Date 01/07/21 M3 PT-IP Subjective Start: 01/08/21 08:27 Freq: NEEDED Status: Active Protocol: Document 01/08/21 09:35 HH (Rec: 01/08/21 11:44 [email or web address]) Subjective Physical Therapy Visit Type Type Initial Evaluation Visit Start Time 09:35 Visit Stop Time 10:05 Total Visit Minutes 30 Number of [employer] Visits 0 Physical Therapy Visit Comments Patient Comments Im still feeling the same with headache and L side weakness. Therapy Pain Assessment Pain When Pain Assessed At Rest Pain Present Pain Present Pain Reported Location Right Head Intensity 5 Scale Used Numeric (0 - 10) Description Pressure Pain Management Techniques Timing of Activity with Medications M4 PT-IP Mobility and Gait Start: 01/08/21 08:27 Freq: NEEDED Status: Active Protocol: Document 01/08/21 09:35 (Rec: 01/08/21 11:44 [email or web address]) PT-Transfer Assessment Sit to and From Stand Sit to and from Stand Contact Guard Assistance,Use of Upper Extremities Equipment Transfer Assistive Device None,Gait Belt Orthotic/Prosthetic Devices or Brace: No Transfers Transfer Destination Chair Transfer Technique Stand Step Pivot Transfer Ability Level of Assist Contact Guard Assistance,Use of Upper Extremities Comments Mobility Comments Pt was in chair upon PT arrival who had Dilaudid prior to PT. Pt appeared to be drowsy and slow to answer questions but he was able to follow commands. Pt agreed to mobilize with PT. BP in sitting =150/88. Completed neuro assessment (see below). Pt then stood up by pushing off from chair armrests. He walked with this PT with close CGA since pt was slightly unsteady with uneven steps. Pt hyperextended his L knee during L stance phase to gain stability and he also stated that My L leg seems to give out possibly at any time. He did complete walking 1 lap of [facility] [facility] and stair climbing 3 steps x 2 set with B rails CGA. Pt did show weakness to push off from LLE during ascend/ descend. Pt then walked back to his room and returned to chair and c/o increased headache on R side. BP at 145/85. Chair alarm activated and call light placed within reach. Gait Assessment Gait Gait Assistance Required: Contact Guard Assist Distance (Feet) 180 Able to Maintain Weight Bearing Status Yes During Gait Assistive Devices Assistive Device Gait Belt Orthotic/Prosthetic Devices or Brace: No Gait Deviations General Gait Pattern Antalgic,Decreased Stride Length,Decreased Feet Clearance,Lateral Trunk Lean Factors Limiting Gait Function Factors Limiting Gait Function Decreased Activity Tolerance, Decreased Sensation,Decreased Strength,Difficulty Following Directions,Limited Range of Motion,Pain,Poor Balance,Poor Safety Awareness Comments Gait Comments see mobility comments. Stair Climbing Assessment Evaluation Level of Assist On Stairs Contact Guard Assistance Devices Stair Climbing Assistive Devices Left Railing,Right Railing Technique/Endurance Stair Climbing Direction Ascend and Descend Stair Climbing Technique Step Over Step Number of Steps Climbed 3 Query Text: Stair Climbing Set # Repetitions (reps) 2 Comments Stair Climbing Comments see mobility comments. PT-Balance Assessment Sitting Balance and Reactions Static Sitting Balance Ability Normal Dynamic Sitting Balance Ability Normal Standing Balance and Reactions Static Standing Balance Ability Normal Dynamic Standing Balance Ability Good Device Used none Balance Tests Single Limb Standing 5,8,10,8 = L, 5,5,8,7= R Comments Other Balance Tests/Deviations/Treatment hyperextension at L knee noted : . M5 PT-IP Objective Assessments Start: 01/08/21 08:27 Freq: NEEDED Status: Active Protocol: Document 01/08/21 09:35 HH (Rec: 01/08/21 11:44 [email or web address]) Orientation Orientation/Cognition Level of Alertness Lethargic Orientation Name,Age,Birthday,Month,Date, Year,Day of Week,Place, Situation Language Function Ability Word Finding Difficulties Safety Awareness Decreased Safety Awareness Comments pt appears to be very drowsy and slows response to questions possibly d/t dilaudid. Gross Range of Motion Upper Extremity ROM Assessment Left Impaired Impairments PROM = WFL AROM = L arm drift noted. Lower Extremity ROM Assessment Left Impaired Impairments PROM = WFL AROM = L LE drift noted. Strength Upper Extremity Strength Assessment Left Impaired Shoulder 3+/5 Elbow 3+/5 Wrist 3+/5 Hand 3+/5 Lower Extremity Strength Assessment Left Impaired Hip 3/5 Knee 3/5 Ankle 4-/5 Comments Strength Comments generalized weakness noted at L side. Coordination Assessment Gross Coordination Gross Coordination Impaired Assessment Finger to Nose Test Minimal Impairment Pronation/Supination Test Minimal Impairment Foot Tapping Test Minimal Impairment Heel on Ya Test Moderate Impairment Coordination Comments Pt's L is grossly slower but able to execute the movement. Pt is unable to complete heel on ya fully possibly d/t L leg weakness. Sensation Assessment Sensation Gross Sensation Left UE Impaired Light Touch Impaired Proprioception (Position) Impaired Sensation Description Numbness Muscle Tone Muscle Tone WNL No Muscle Tone Location Left Upper Extremity Type of Tone Hypotonicity Manifistation of Tone Resting Tremors Left Lower Extremity Type of Tone Hypotonicity Manifistation of Tone Resting Tremors Other Assessments Other Other Assessments saccade = WFL for horizontal tracking, but noticeable dizziness and eye jerky movements for vertical tracking pursuit = slower, and noticeable noticeable dizziness and eye jerky movements for vertical tracking unable to complete VOR test L facial droop noted. M6 PT-IP Treatment Start: 01/08/21 08:27 Freq: NEEDED Status: Active Protocol: Document 01/08/21 09:35 HH (Rec: 01/08/21 11:44 HH [email or web address]) Physical Therapy Treatment Education Education Provided Safety M7 PT-IP Assessment and Plan Start: 01/08/21 08:27 Freq: NEEDED Status: Active Protocol: Document 01/08/21 09:35 HH (Rec: 01/08/21 11:44 HH [email or web address]) PT Summary Assessment and Plan Potential Rehabilitation Potential Good Status of Condition at Evaluation Evolving Summary Impairments Pain,ROM,Strength,Balance, Coordination,Sensation,Tone, Cognition,Bed Mobility, Transfers,Gait,Activity Tolerance Assessment Summary Pt is a 45yo male admitted to ER yesterday d/t new onset of R headache, L facial droop, L sided weakness and numbness. PMH includes bipolar disorder, PTSD, TIA, prior heat stroke associated left-sided weakness , CAD, hypertension, migraines and seizures. Pt was completely IND for all mobility and ADLs/IADLs without AD. He also ran 5 miles a day over the past few months. Upon assessment, pt was very drowsy and slow to respond to command possibly d/ t dilaudid (pt scored 7/[address] ) . Pt showed noticeable weakness on both L UE, LE, L facial droop, impaired sensation to LT and pressure, impaired vision ( saccade/ pursuit and VOR). Pt was also unsteady with his gait who tends to hyperextend his L knee to gain stability. Pt needed close CGA for all mobility at this point d/t fall risk. In addition, pt lives alone and have flight of stairs to negotiate with, therefore, i recommend discharging to acute rehab to address aforementioned impairments in order for him to safely go home. Goals Bed Mobility Goal Standby Assistance Transfer Goal Standby Assistance Gait Goal Standby Assistance Gait Distance 500 Other Goals 12 steps with Brails Days to Meet Goals 5 Frequency of Treatment Frequency Of Treatment Once a Day Treatment Plan Physical Therapy Treatment Plan Bed Mobility Training,Transfer Training,Gait Training, Therapeutic Exercise,Balance Retraining,Discharge Planning, Neuromuscular Re-ed, Coordination Retraining,Manual Therapy Other Recommendations and Next Treatment check vitals Focus mobility as lela gait training LLE strengthening Recommendations To Nursing Amount of Assist Needed 1 Person Assist Discharge Recommendations PT Discharge Recommendations Acute Rehab Transportation Needs at Discharge Private Vehicle
[2021-01-08] MEDS: LORazepam 2 MG/ML INJ 1 MG IV ×2 (12:07→13:35)
[2021-01-08] MEDS: levETIRAcetam 500 MG in SODIUM CHLORIDE 0.9% 100 ML 420 ML IV ×2 (12:13→13:57)
[2021-01-08 13:11] VITALS: BP 134/80; PULSE 94; RESP 16; TEMP 36.3; O2SAT 94
[2021-01-08] MEDS: LORazepam 2 MG/ML INJ ×2 (13:24→14:10)
--- NOTE | 2021-01-08 13:57 | ST.OPIE ---
Visit Care Team Role Provider Type Juan J Thakkar MD Primary Care Provider Physician Specialty: Internal Medicine Address: [address] [place] [address], [address], [place], [address] Email: [email or web address] Micki Castañeda DO Emergency Provider Physician Specialty: Emergency Medicine Address: [address] [place] [address], [id number] Email: [email or web address] OLIVIA Ward Admit Provider Physician Attending Provider Specialty: Internal Medicine Address: [address] [place] [address], [id number] Email: [email or web address] Speech-Language Pathology Initial Evaluation [employer] Adult Cognitive Linguistic Eval Start: 01/08/21 12:00 Freq: Status: Active Protocol: Document 01/08/21 12:00 VESTA (Rec: 01/08/21 12:28 VESTA [email or web address]) Adult Cognitive Linguistic Evaluation Session Time Visit Start Time 10:05 Visit Stop Time 10:25 Total Visit Minutes 20 Referral Referring Provider OLIVIA Ward Reason for Referral CVA/TIA Setting Assessment Location Acute Care Visit Type Note Type Initial evaluation Next Note Type Next Note Type Treatment Note Patient Information Identification Type Name,ID Card Medical History The pt is a 45-year-old male with a complex psychiatric history including bipolar disorder, current memo, PTSD, as well as history of TIA, prior heat stroke associated left-sided weakness, CAD, hypertension,, migraines and seizures who presents to the ER with severe migrainous headache with new onset left lower extremity weakness left side numbness and tingling and developing left facial droop. 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 Pain Intensity 8 Pain Scale Used Numeric (0 - 10) Location Head Mental Status Alert,Responsive,Cooperative Assessment Oral Motor Examination Completed Yes: See swallow evaluation Informal Assessment Receptive Language Normal Yes: WFL for basic conversation Expressive Language Normal Yes: WFL for basic conversation; pt c/o difficulties w/ more complex expression Pragmatic Language Normal Yes Speech Normal Yes Cognition Normal No Cognitive Impairment(s) Orientation,Attention,Short- term memory,Executive functioning,Thought organization Formal Assessment Standardized Test/Screener Type Au Train Cognitive Assessment (MoCA) Administration Complete Results 05/02 Results were very consistent with the pt's report. Orientation: Oriented to year and state; not oriented to day of week. Immediate recall of 5 objects: 3/5, then 4/5 across 2 presentations. Delayed recall of 5 objects: 0 /5; pt recalled them being foods and listed 3 food items, not including an apple, which is an item on the list. Mental Rotation: Pt reversed 2 -digit numbers correctly; unable to reverse 3- and 4- digit numbers (stated 469 for 946, and 30,408 for 7,358). Simple Math: Correct addition; incorrect subtraction. Categorical Naming: Named 14 animals and one food item in 60 sec. Clock Drawing: All numbers included in sequence and rotated correctly; inconsistent spacing; 2 hands originating from center with time set at 1:55 (vs 11:10). Visuospatial: Correctly placed an X in triangle and identified largest of 3 objects. Story Recall: 0/4 questions. Pt answered all questions incorrectly; answers did not resemble story details. Findings/Results Cognitive Function Moderately-severely impaired Findings The pt presents with moderate- severe cognitive communication deficits in areas of memory, attention, organization, executive functions, and mental flexibility. Assessment results were highly consistent with the pt's description of difficulties, indicating excellent awareness of deficits. Outpatient Speech Pathology services are highly recommended for rehabilitation of these skills , particularly given the pt's awareness, age, and expressed motivation to improve. The pt was in agreement with this recommendation. The pt's speech was WNL, as were his expressive and receptive language skills during conversation and assessments. The pt followed all directions and responded appropriately to all questions and comments in conversation. However, cognitive deficits likely impact expressive and receptive communication skills ; therefore, further language assessment and treatment are warranted. Cognitive Communication Deficits Self-awareness of Cognitive- Predictive awareness (able to Communication Deficits predict problem; impact of impairments) Impact on Functioning Activity Limits/Particip.Rest. Mod: General Tasks and Demands Household Tasks Interpersonal Interactions Community Sev: Employment Safety Risks Mild: Traveling Alone in Community Mod: Being Left Alone at Home Reacting to Emergency Managing Medication Prognosis Prognosis Good Based on Other (comment) Comment Age, awareness of deficits, motivation to improve Plan of Care Speech-Language Treatment Yes Frequency Daily Duration over hospital stay Patient/Caregiver Education Described results of evaluation,Patient expressed understanding of evaluation, Patient expressed agreement with goals and treatment plans Short Term Goals 1. The pt will participate in development of external memory tools to assist in recall of functional information necessary for conversations related to his medical care, personal and work life (e.g., memory notebook, communication center). 2. Using memory/attention strategies with mod prompts, the pt will recall 3 items from information presented orally (e.g., short story details, object lists, etc.). 3. Penitentiary Goals 1. Using external tools as needed, the pt will demonstrate cognitive communication skills sufficient to participate effectively in conversations and decisions related to his medical needs. Discharge Recommendations Home,Inpatient rehab facility, Outpatient therapy [employer] Clinical Swallow Evaluation Start: 01/08/21 12:00 Freq: Status: Active Protocol: Document 01/08/21 12:00 VESTA (Rec: 01/08/21 12:28 VESTA [email or web address]) Clinical Swallow Evaluation Session Time Visit Start Time 09:45 Visit Stop Time 10:05 Total Visit Minutes 20 Referral Referring Provider OLIVIA Ward Reason for Referral CVA/TIA Patient Information History The pt is a 45-year-old male with a complex psychiatric history including bipolar disorder, current memo, PTSD, as well as history of TIA, prior heat stroke associated left-sided weakness, CAD, hypertension,, migraines and seizures who presents to the ER with severe migrainous headache with new onset left lower extremity weakness left side numbness and tingling and developing left facial droop. Subjective Observations The pt was sitting up in chair watching TV upon SEPT[employer] CLEANER's arrival. His breakfast tray was nearby. The pt stated he had eaten as much of it as he could/desired, which was minimal. He reported history of dysphagia during manic periods, which he attributed to consequences of anxiety and possibly contributed by meds or lack thereof. During these episodes, he is unable to initiate swallow of solids, although he manages liquids ok . If able to consume small amounts of solids, he frequently becomes nauseated if without anti-nausea medication. He reported recent weight loss of ~40 lbs over 3 wks d/t swallow difficulties and loss of appetite during manic period. He reports no difficulty with swallow outside of manic episodes. He did report aspiration pneumonia with his first stroke (did not obtain date of this event), which he reports kept him in the hospital for 6 wks. This morning the pt reported continued numbness and tingling in his left side, including face, throat and limbs, as well as a right-side headache, pain level of 8/10. Reported by Patient Other Symptoms Difficulty swallowing solids, History of aspiration or pneumonia,Weight loss Comment During manic episodes Current Diet Regular,Thin liquids Baseline Feeding Method Independent in self-feeding Objective Assessment Mental Status Alert,Responsive,Cooperative Oral Integrity WFL Dentition Within normal limits,Missing teeth Lip Function Mild impairment Observation of Lips at Rest Left sided weakness/Drooping Pucker Reduced strength,Left sided weakness/drooping Lip Retraction Left sided weakness/Drooping Alternating Pucker/Lip Retraction Reduced range of motion Tongue Function Mild impairment Observations of Tongue at Rest Within normal limits Tongue Protrusion Deviates to the right Tongue Retraction Within normal limits Tongue Lateralization Within normal limits Jaw Function Within normal limits Observations of Jaw at Rest Within normal limits Jaw Opening Within normal limits Jaw Closing Within normal limits Jaw Lateralization Within normal limits Hard/Soft Palate Function Within normal limits Observations of Hard/Soft Palate Within normal limits Nasality Within normal limits Phonation Within normal limits Respiratory Sufficiency Within normal limits Food and Liquid Trials Position During Assessment Upright (90 degrees) Liquids Trialed Thin Solids Trialed Dysphagia Mechanical, Mechanical Soft,Regular Administration Type Cup single sip,Cup consecutive sips,Straw,Self-feeding Oral Impairment Mildly impaired Oral Phase Comments Mild left side facial droop and weakness during oral prep phase. Mastication of most textures occurred at right side; pt able to masticate diced fruit bilaterally. Extended mastication and increased effort required during oral prep phase with dry and bulky textures (e.g., turkey sandwich, dry cracker). No abnormal oral residue or pocketing observed. A/P propulsion and swallow trigger appear to be timely. Pharyngeal Impairment Mildly impaired Pharyngeal Phase Comments Pt reported feeling that he was swallowing on the right side of his throat. No overt s/sx of aspiration were observed. Increased effort was required with dry and bulky textures (turkey sandwich and dry cracker). The pt stated he would avoid such textures. Fatigue/Endurance Endurance WNL Comment Pt consumed medication whole with liquid without overt s/sx of aspiration or complaint. Strategies Attempted Head rotation Response/Comments Increased difficulty with head turn to left and no significant benefit to head turn to right. Findings Swallowing Function Oropharyngeal phase dysphagia Severity of Swallow Impairment Mildly impaired Contributing Factors to Swallow Reduced oral strength/ Impairment coordination/sensation, Mastication inefficiency Prognosis Good Based on Cognitive status,Age,Duration of symptoms/severity Impact on Safety and Functioning Risk for aspiration,Risk for inadequate nutrition/hydration Comments Mild risk of aspiration Recommendations Instrumental Assessment No Swallowing Treatment Yes Frequency 1-2 visits Duration over hospital stay Recommended Solids Mechanical Soft Recommended Liquids Thin Safety Precautions/Swallowing Remain upright (90 degrees) Recommendations during all oral intake,Upright position at least 30 minutes after meals,Small bites and sips when eating,Slow rate; swallow between bites Medication Recommendations As Tolerated Discharge Recommendations Home,Inpatient rehab facility, Outpatient therapy Education Patient/Caregiver Education Described results of evaluation,Patient expressed understanding of evaluation, Patient expressed agreement with goals & treatment plans, Patient expressed understanding of safety precautions,Patient expressed understanding of feeding recommendations Goals Short-term Goals 1. The pt will follow safe swallow strategies independently as needed to reduce risk of aspiration and increase comfort with oral intake. Long-term Goals 1. The pt will tolerate least restrictive diet to meet his nutrition and hydration needs.
--- NOTE | 2021-01-08 15:04 | PM.DS.1 ---
History of Present Illness History of Present Illness Chief complaint: feels like he is having a stroke Narrative: Per Ayush and P from Cornelius Hernandez 01/07: Mr. Angelito Joshi is a 45-year-old male with a past medical history bipolar disorder, PTSD, TIA, prior heat stroke associated left-sided weakness, CAD, hypertension,, migraines and seizures who presents to the ER with left lower extremity weakness, left-sided numbness and tingling in left facial droop. Patient describes getting out of bed last night about midnight and had difficulty moving his left leg and felt it dragging. Return to bed in upon arising in the morning he had left-sided numbness tingling and later a friend noticed left facial drooping. Patient additionally reports severe right parietal headache rated at 8/10 with associated nausea without vomiting, positive photophobia and phonophobia which all characteristic of his typical migraine presentation though his pain is more intense than previous. Patient does have a cardiac history having had angioplasty and stent. He reports no palpitations or racing heartbeat. The patient was seen by Dr. Carvajal on 12/31 2020 to establish care. At that time the patient reports memo for several days with associated insomnia. He also reports paresthesias and difficulty concentrating and expresses a concern for related to lithium toxicity. The patient presented to the emergency room on 01/02/2021 over concerns the same concern for lithium toxicity where he is lithium level was 0.3. Patient states he had a brief pause pending lithium level results 3 PCP but since has been taking his lithium 300 mg twice daily routinely. Per PCP documentation the patient has multiple somatic complaints with manic episodes. The patient is unhappy with [facility] received his mental health care and Dr. Carvajal is in process of psychiatric referral for care going forward. Patient denies recent illness, fevers or chills. He has headache as described above that is migrainous in character. He denies nasal congestion or sore throat but feels he has had intermittent difficulty swallowing which he he is experience previously in attributes to use anxiety. He reports no complaints of chest pain, pressure or palpitations. He denies shortness of breath exertional dyspnea, cough or wheezing. He denies epigastric or abdominal pain and has nausea which is typical when he has migraines without vomiting. He reports no change in bowel or bladder habits. He denies neck or back pain and has had no falls or trauma. Upon arrival the ER has a blood pressure of 90 7.9, heart rate of 94, blood pressure 138/88, respirations 14 saturating 97% on room air. Brain CT finds no acute intracranial abnormalities. A CT angiogram finds no significant intracranial abnormalities with no hemodynamically significant stenoses the neck arteries. A chest x-ray is obtained finding questionable ground-glass opacity in the right lung base. On laboratory analysis he has a white count of 7.4 without shift, hemoglobin 14.9, hematocrit 42.9 and platelets of 208. His coagulation studies are within normal range. His electrolytes in normal range with a BUN of 12 and creatinine of 1.09. He has a total bilirubin of less than 0.1, AST of 21, ALT of 19 alkaline phosphatase 51. His total CK is 59 and troponin is less than 0.012. His lithium level is less than 0.2. On urine tox screen is positive for opiates (prescribed tramadol), try cyclic any presence and marijuana. In the ER the patient received Benadryl and methylprednisolone [address] angiogram, and aspirin and Zofran and Dilaudid 0.5 mg for his headache with improvement. The patient is admitted to the hospitalist team for TIA versus CVA versus complex migraine variant. PCP: Dr. Carvajal cardiology: Dr. Ojeda Discharge Providers Provider Date of admission: 01/07/21 19:35 Discharge Date: 01/08/21 Primary care physician: Juan J Thakkar MD Consults: 01/07/21 20:23 Consult to Discharge Planning Routine Comment: Consult to Occupational Therapy Evaluate & Treat Comment: Physician Instructions: Evaluate and treat Consult to Physical Therapy Evaluate & Treat Comment: Physician Instructions: Evaluate and Treat Consult to Speech Therapy Evaluate & Treat Comment: Physician Instructions: Evaluate and treat Discharge provider: Sam Thomas MD Summary Hospital Course Discharge Diagnosis: 1. Seizure-like activity 2. Left sided weakness, questionable 3. Bipolar disorder 4. Migraine headaches 5. Hypertension 6. CAD s/p angioplasty 7. Seizure disorder, in setting of reported EtOH withdrawal Hospital Course: 45-year-old male with a complex psychiatric history including bipolar disorder, recent subjective manic symptoms, PTSD, history of TIA, CAD, hypertension, migraines and seizures who presents to the ER with severe migrainous headache with new onset left lower extremity weakness left side numbness and tingling and developing left facial droop. He was initially evaluated as a possible stroke and did undergo CT of brain, and CTA of neck that showed no acute abnormalities. He had previously been on aspirin, and plavix was subsequently added. Additionally was added on with atorvastatin 20mg daily. ECHO was done which showed no acute process. quality assurance monitor body showed no arrhythmia. LDL in 120, total cholesterol 200. A1c 5.1. MRI of his brain showed no acute process. While at MRI he was witnessed by staff to have a brief 20 second seizure like activity where he was unresponsive and had bilateral upper extremity shaking. This self resolved with mild brief confusion afterwards. He then had another episode that was similarly described that lasted 15 seconds and self resolved. After returning to the floor he had a 2 minute episode, witnessed by myself, where he was unresponsive, bilateral upper and lower extremity shaking. He was given 2mg IV ativan. He was loaded initially with 500mg IV keppra, which then was increased to a total of 1000mg IV keppra. He had two further episodes that were 30-60 seconds in duration which he was partially responsive, with upper and lower extremity shaking. No loss of urine or bowel, no evidence of respiratory compromise, or tongue biting through these episodes. He received IV ativan for this 1mg IV in two separate doses. His glucose was greater than 100 throughout. He denied any recent benzodiazepene use. Of note his previous seizures he describes as being in the setting of EtOH withdrawal. Last on seizure medications with topamax, depakote two years ago, and discontinued for unclear reasons. He currently denies any alcohol use, and EtOH level and benzo level here negative. Urine tox was noted for TCA, opiate (on tramadol), and marijuana positive. All other negative. He did not have any confusion and no findings concerning for possible infection. [place] level undetectable. For his medications his tramadol was discontinued after these episodes, but he only received one dose in the hospital. He received no other medications here that were different from his home medications that would lower seizure threshold. For his neurologic findings, note that on my exam, I did not find evidence of facial droop, and was concerned that patient was not fully cooperating with neurologic exam and not displaying true left sided weakness. Patient also complained of severe migraine for which he requested IV opiates which were initially ordered, but then discontinued by me for PRN oral medications. He was given sumatriptan here, and did take one dose prior to coming to the hospital. Also of note, patient described unconfirmed description of his home medication regimen. He at time seemed vague in his responses (claiming to be taking lithium consistently, with undetectable level) and claiming he took morphine at home for his migraine. His current seizure-like acitivity remains unexplained in term of a cause, but would consider possible psychiatric component to be contributing. His other medical issues remained stable in the hospital. He is not on plavix as an outpatient, and was placed on this in hospital after initial concern for TIA/CVA while on aspirin. Due to no available EEG he was transferred for higher level of neurologic care. Diet: Cardiac DVT: Lovenox Code: Full, contact Azeb Joshi at [phone] Status at Discharge Cognitive/behavioral status at discharge: confused Functional status at discharge: independent ambulation Overall status at discharge: patient is not back to baseline Exam Vital Signs (past 8 hours): - 01/08/21 08:25 01/08/21 13:11 Temperature 98.0 F 97.3 F L Pulse Rate 85 94 H Respiratory Rate 16 16 Blood Pressure 129/82 134/80 Pulse Oximetry 97 94 Oxygen Delivery Method Room Air Oxygen Flow Rate 0 Narrative Exam Narrative: GENERAL APPEARANCE: overweight male, in no acute distress. HEENT: Normocephalic, PERRLA, conjunctiva clear, EOMs intact bilateral nystagmus, mucous membranes are moist and pink. NECK/THYROID: neck supple, no JVD, no thyromegaly, trachea midline. SKIN: [place], warm and dry, no visible lesions, rashes, ulcerations or petechiae. HEART: regular rate and rhythm, S1-S2, no murmur, no rubs or gallops, brisk capillary refill, no edema LUNGS: clear to auscultation bilaterally, no coarseness crackles or wheezing, no cough present ABDOMEN: Soft, no distention, no abdominal tenderness, no organomegaly, active bowel tones. BACK: Nontender to palpation EXTREMITIES: Spontaneous full range of motion bilateral upper extremities NEUROLOGIC: AAO x4, NIH score 5, no facial droop, no dysarthria, positive photophobia and phonophobia, describes numbness on L forehead, no ataxia, CN 2-12 otherwise intact. Per my exam I can note 4/5 weakness in upper extremity at bicep, and wrist; however I question if patient giving full effort PSYCH: Briskly interactive, mildly restless, slightly pressured speech, cooperative, denies suicidal ideation or thoughts of self-harm. Objective Labs Result Diagrams: 01/07/21 13:59 01/08/21 05:15 Labs: Laboratory Results - last 24 hr 01/07/21 01/07/21 01/07/21 13:59 13:59 13:59 Sodium Potassium Chloride Carbon Dioxide BUN Creatinine Estimated GFR BUN/Creatinine Ratio Glucose Hemoglobin A1c 5.1 Calcium Magnesium 2.1 Triglycerides Cholesterol LDL Cholesterol, Calc HDL Cholesterol TSH U Opiates 300ng/mL cut Ur Oxycodone Screen Urine Methadone Screen Ur Barbiturates Screen U Tricyclic Antidepress Ur Phencyclidine Scrn Ur Amphetamines Screen U Methamphetamines Scrn Ur MDMA Scrn (Ecstasy) U Benzodiazepines Scrn [place] < 0.2 L Urine Cocaine Screen U Marijuana (THC) Screen SARS-CoV-2 (PCR) 01/07/21 01/07/21 01/08/21 14:08 19:32 05:15 Sodium 137 Potassium 4.5 Chloride 102 Carbon Dioxide 28 BUN 15 Creatinine 0.98 Estimated GFR > 60.0 BUN/Creatinine Ratio 15.3 Glucose 129 H Hemoglobin A1c Calcium 9.5 Magnesium Triglycerides 132 Cholesterol 200 H LDL Cholesterol, Calc 123 H HDL Cholesterol 51 TSH U Opiates 300ng/mL cut Positive H Ur Oxycodone Screen Negative Urine Methadone Screen Negative Ur Barbiturates Screen Negative U Tricyclic Antidepress Positive H Ur Phencyclidine Scrn Negative Ur Amphetamines Screen Negative U Methamphetamines Scrn Negative Ur MDMA Scrn (Ecstasy) Negative U Benzodiazepines Scrn Negative [place] Urine Cocaine Screen Negative U Marijuana (THC) Screen Positive H SARS-CoV-2 (PCR) Negative 01/08/21 05:15 Sodium Potassium Chloride Carbon Dioxide BUN Creatinine Estimated GFR BUN/Creatinine Ratio Glucose Hemoglobin A1c Calcium Magnesium Triglycerides Cholesterol LDL Cholesterol, Calc HDL Cholesterol TSH 0.530 U Opiates 300ng/mL cut Ur Oxycodone Screen Urine Methadone Screen Ur Barbiturates Screen U Tricyclic Antidepress Ur Phencyclidine Scrn Ur Amphetamines Screen U Methamphetamines Scrn Ur MDMA Scrn (Ecstasy) U Benzodiazepines Scrn [place] Urine Cocaine Screen U Marijuana (THC) Screen SARS-CoV-2 (PCR) [facility] Medical History (Updated 01/08/21 @ 00:00 by ) Bipolar 1 disorder with moderate memo Coronary artery disease Hypertension Migraine headache PTSD (post-traumatic stress disorder) Seizure disorder Seizures TIA (transient ischemic attack) Surgical History (Updated 01/07/21 @ 21:36 by OLIVIA Ward) H/O cardiac catheterization History of angioplasty History of heart artery stent Family History (Updated 01/07/21 @ 21:38 by OLIVIA Ward) Father Cancer Mother Hypertension Heart disease Depression Sister Depression Social History household members: other Smoking Status: Current every day smoker Discharge Plan Discharge Plan Patient Disposition: [facility] Other facility: [facility] Under care of provider: Dr. Lindsey Provider Discharge Comment: transfer for seizure like activity, please see DC summary Discharge Health Status Multidrug resistant organism: No MDRO Precautions: [place] Diet/Activity/Treatments Diet: Diet as Tolerated Discharge Data Primary Care Provider: Juan J Thakkar VTE Deep Vein Thrombosis/Pulmonary Embolism Present on Admission: No
[2021-01-08 15:15] VITALS: BP 120/66; PULSE 92; RESP 17; TEMP 36.9; O2SAT 94
--- NOTE | 2021-01-08 15:34 | CM.DANOTE ---
Patient is a 45 year old male who was admitted 01/07/21 for TIA/CVA symptoms. Pt has [employer] for insurance and his PCP is Dr. Juan J Thakkar. EMR was reviewed. Per MD, pt with some extensive MH hx of bipolar, PTSD, migraines, seizures, and hx TIA. MRI and Echo ordered and pending. Per ED documentation, pt has a hx of being established with [facility] for MH management and is currently seeking other MH tx provider as not satisfied with care from [facility] and working with his PCP. Pt with hx of [facility] tx last year sometime but admission for this stay primarily seems to be medical. SW attempted to meet bedside with pt but he was working with PT for initial eval. SW attempted to meet bedside with pt again but RNs working to get IV line in pt and requested SW to come back. Per legal compliance officer, pt now being transferred to [place] for higher level of care needs and transporting via ambulance this afternoon, therefore no bedside assessment completed. Plan: Patient to transfer to higher level of care hospital today for ongoing medical needs. ELIER Cohn
[2021-01-08 15:35] VITALS: BP 127/79; PULSE 83; RESP 16; TEMP 36.8; O2SAT 96
--- NOTE | 2021-01-08 16:06 | PC.NURSE ---
Shift summary: Was called by MR lloyd that he was on the way back with patient from MRI and that patient had had a seizure during MRI but that test was completed. Patient back in room, he states he is feeling out of it and a little confused. He endorses having a seizure it was a petite mal. See additional note for further details on seizure like activity noted. Patient had 4 other episodes of seizure like activity last approximately 1-2 minutes, with arms shaking and rigid and not responding. Vital signs and respirations have remains stable throughout, continuous spo2 showing 94-96% . Ativan IV given per orders, as well as keppra IV per orders. Patient finally able to rest and fall asleep, PROPERTY TECHNICIAN stayed with him to watch him for safety at bedside. Transfer arranged to [facility] by and coordinator, and plan for fruit or nut picker at 1600. Attempted to call RN at [address], but nurse was unable to take report and number left for her to call back.
--- NOTE | 2021-01-08 16:31 | PC.NURSE ---
Report given to [facility] for transport. Tele removed by PRESTIDIGITATOR and belongings were gathered by PRESTIDIGITATOR, patient has his cell phone with him. Able to reach Vicki accepting nurse at [facility] to give report.
--- NOTE | 2021-01-08 16:33 | PC.NURSE ---
Update/late entry (previous note apparently not saved); This RN was notified by heating technician that he was bringing patient back up from MRI and that test had been completed but that patient had a seizure. Patient was settled in bed, VSS. Coordinator assisted this RN to obtain more information and notify MD NIDA to bedside, orders obtained (see EMAR). Seizure precautions maintained.
== END 2021-01-08 16:30 | disposition short-term general hospital (02) | DRG 53 ==
LOC: ED 16:53 → AC 19:37
PROVIDERS: Admitting Provider Nurse Practitioner Adult Health; Emergency Provider Emergency Medicine; PCP Student in an Organized Health Care Education/Training Program; Visit Provider Nurse Practitioner Adult Health
DX: R56.9 Unspecified convulsions (principal); G43.809 Other migraine, not intractable, without status migrainosus; R53.1 Weakness; F31.9 Bipolar disorder, unspecified; F43.10 Post-traumatic stress disorder, unspecified; Z20.822 Contact with and (suspected) exposure to COVID-19; I25.10 Atherosclerotic heart disease of native coronary artery without angina pectoris; Z86.73 Personal history of transient ischemic attack (TIA), and cerebral infarction without residual deficits; I10 Essential (primary) hypertension; F17.210 Nicotine dependence, cigarettes, uncomplicated
CPT/HCPCS: 36415; 70450; 70496; 70498; 70548; 70553; 71045; 80048; 80053; 80061; 80178; 80305; 81003; 82550; 82962; 83036; 83735; 84443; 84484; 85025; 85610; 85730; 87635; 92523; 92610; 93005; 93306; 96374; 96375; 97161; 99285; 99406; C9803; G0378; A9270; J1170; J1200; J1650; J1885; J1953; J2060; J2405; J2930; Q9967

== ENCOUNTER → 2021-02-10 09:40 | Outpatient (CLI) | payer OTHER, MEDICAID, SELFPAY ==
[2021-01-07 20:23] VITALS: BMI 29.5
[2021-02-10 11:05] LABS: BUN Creatinine Ratio 16.1 (6-22); Blood Urea Nitrogen 15 mg/dL (9-20); Calcium 9.6 mg/dL (8.4-10.2); Carbon Dioxide 25 mmol/L (22-32); Chloride 106 mmol/L (98-107); Estimated Glomerular Filt Rate > 60.0 mL/min (>60); Glucose 98 mg/dL (70-100); HEMOLYSIS < 15 (0-50); Potassium 4.1 mmol/L (3.4-5.1); Sodium 139 mmol/L (137-145)
[2021-02-10 11:11] LABS: Lithium 0.3 mmol/L (0.6-1.2)
== END ==
PROVIDERS: PCP Student in an Organized Health Care Education/Training Program; Referring Provider Student in an Organized Health Care Education/Training Program; Visit Provider Student in an Organized Health Care Education/Training Program
DX: F31.12 Bipolar disorder, current episode manic without psychotic features, moderate (principal); Z79.899 Other long term (current) drug therapy
CPT/HCPCS: 36415; 80048; 80178

== ENCOUNTER → 2021-02-20 12:14 | Outpatient (CLI) | payer OTHER, MEDICAID, SELFPAY ==
[2021-01-07 20:23] VITALS: BMI 29.5
[2021-02-20 14:24] LABS: Lithium 0.8 mmol/L (0.6-1.2)
== END ==
PROVIDERS: PCP Student in an Organized Health Care Education/Training Program; Referring Provider Student in an Organized Health Care Education/Training Program; Visit Provider Student in an Organized Health Care Education/Training Program
DX: Z79.899 Other long term (current) drug therapy (principal)
CPT/HCPCS: 36415; 80178